=== PATIENT | male | born 1945 | race Caucasian/White ===

== ENCOUNTER 2021-01-15 08:11 | Outpatient (REF) | payer MEDICARE, SELFPAY ==
[2021-01-15 10:49] LABS: MANUAL DIFF FLAG NO
[2021-01-15 10:52] LABS: Basophils Percent Auto 0.4 % (0-2); Eosinophils Absolute Auto 0.1 X10*3/uL (0.0-0.4); Eosinophils Percent Auto 1.5 % (0-4); Hematocrit 45.9 % (42.0-52.0); Hemoglobin 15.4 g/dl (14.0-18.0); Imm Gran Abs Auto 0.01 X10*3/uL (0.00-0.03); Imm Gran Pct Auto 0.2 % (0.0-0.4); Lymphocytes Absolute Auto 1.2 X10*3/uL (1.2-4.9); Lymphocytes Percent Auto 22.7 % (20-40); Mean Corpuscular HGB Conc 33.6 g/dl (31.0-36.0); Mean Corpuscular Hemoglobin 29.2 pg (27.0-33.0); Mean Corpuscular Volume 87.1 fL (80.0-98.0); Mean Platelet Volume 9.7 fL (9.4-12.4); Monocytes Absolute Auto 0.5 X10*3/uL (0.1-1.2); Monocytes Percent Auto 9.6 % (2-11); Neutrophils Absolute Auto 3.6 x10*3/uL (2.0-8.3); Neutrophils Percent Auto 65.6 % (45-73); Platelet Count 227 X10*3/uL (160-400); Red Blood Count 5.27 X10*6/uL (4.60-5.80); Red Cell Distribution Width 13.1 % (11.0-16.0); White Blood Count 5.4 X10*3/uL (4.8-10.8)
[2021-01-15 11:01] LABS: Estimated Average Glucose 114 mg/dL; Hemoglobin A1c % 5.6 %
[2021-01-15 11:29] LABS: Alanine Aminotransferase 17 U/L (0-40); Albumin Level 4.1 g/dL (3.5-5.0); Alkaline Phosphatase 97 U/L (39-117); Anion Gap 11 (12-20); Aspartate Amino Transferase 20 U/L (5-37); Bilirubin Total 0.5 mg/dL (0.0-1.0); Blood Urea Nitrogen 17 mg/dL (9-16); Calcium 9.3 mg/dL (8.4-10.2); Carbon Dioxide 31 mmol/L (22-29); Chloride 103 mmol/L (96-108); Cholesterol 206 mg/dL; Estimated Glomerular Filt Rate > 60; Glucose Fasting 110 mg/dL (60-99); HDL Cholesterol 40 mg/dL; LDL Cholesterol Calculated 129 mg/dl; Potassium 4.2 mmol/L (3.3-5.1); Sodium 141 mmol/L (135-145); Total Protein 6.9 g/dL (6.5-8.0); Triglycerides 186 mg/dL
[2021-01-15 11:50] LABS: Prostate Specific Antigen 1.52 ng/mL (<0.05-4.0)
[2021-01-15 11:52] LABS: Vitamin B12 181 pg/mL (200-900)
== END 2021-01-15 08:12 | disposition home or self-care (01) ==
LOC: HO.MANLDS 08:11
PROVIDERS: PCP Internal Medicine; Visit Provider Internal Medicine
DX: Z00.00 Encounter for general adult medical examination without abnormal findings (principal); Z12.5 Encounter for screening for malignant neoplasm of prostate; R73.01 Impaired fasting glucose
CPT/HCPCS: 36415; 80053; 80061; 82306; 82607; 83036; 84153; 85025

== ENCOUNTER 2021-04-22 09:24 | Inpatient (IN) | payer MEDICARE, SELFPAY ==
--- NOTE | 2021-04-22 | ECG_ITS ---
Test Reason : SHORTNESS OF BREATH Blood Pressure : / mmHG Vent. Rate : 053 BPM Atrial Rate : 053 BPM P-R Int : 168 ms QRS Dur : 104 ms QT Int : 450 ms P-R-T Axes : 079 -42 055 degrees QTc Int : 422 ms Sinus bradycardia with Premature atrial complexes in a pattern of bigeminy Left axis deviation Moderate voltage criteria for LVH, may be normal variant ( R in aVL , [place] product ) Abnormal ECG When compared with ECG of 22-APR-2021 09:31, Sinus rhythm has replaced Atrial fibrillation Vent. rate has decreased BY 35 BPM Nonspecific T wave abnormality has replaced inverted T waves in Lateral leads Referred By: Yohan Eddy Electronically Signed By:REBEKAH ALVAREZ MD
--- NOTE | ~2021-04-22 | XR_ITS ---
EXAMINATION: XR CHEST CLINICAL INFORMATION: Cough and shortness of breath COMPARISON: None TECHNIQUE: 2 views of the chest were obtained. FINDINGS: The cardiac silhouette is within normal limits for technique. No vascular congestion or pulmonary edema. The lungs are mildly hypoexpanded. No consolidation or effusion. No pneumothorax. Degenerative changes in the thoracic spine. XR/XR chest 2V IMPRESSION: No focal consolidation.
--- NOTE | ~2021-04-22 | NM_ITS ---
Myocardial perfusion study Indication: Exertional shortness of breath with elevated troponin and aorta with atrial fibrillation Technique: The patient was brought in for a Lexiscan perfusion study on 04/24/2021. Patient performed low-level exercise and was injected 0.4 mg of Lexiscan intravenously. Within a minute of injection, 31 mCi of sestamibi was given intravenously. Images were obtained using the SPECT gamma camera interlaced with the gating device. Images were obtained in supine position. Resting perfusion study was performed on 04/23/2021. Patient was administered 35 mCi of sestamibi intravenously at rest. Images were then obtained in supine position. Images were obtained with and without CT attenuation. Total DLP 95 mGy-cm. Images were processed with the software and compared side to side in short axis, horizontal long axis and vertical long axis views. Findings: The stress perfusion study showed non attenuated images show moderately reduced uptake in the inferior wall in the apex of the LV myocardium. Moderately reduced uptake in the inferoseptum the LV myocardium. Remainder of the LV myocardium is normally perfused. Attenuation corrected images show normalized inferior wall with mildly reduced uptake in the apex of the LV myocardium. The gated study shows mildly reduced LV systolic function with calculated LVEF of 49%. LV cavity is mildly to moderately dilated size. The gated study shows reduced wall thickening and contraction of inferior segments. Resting study shows showed no changes in perfusion pattern compared to stress perfusion study. Gating at rest reveals inferior wall motion abnormality with ejection fraction at 50%. The findings are consistent with fixed inferior wall defect on non attenuated images may suggest ischemia versus prior nontransmural myocardial infarction with no wall motion segments with no clear ischemia seen.. NM/NM topher perf SPECT rest & str Impression: 1. Myocardial perfusion imaging study shows fixed inferior wall defect which may suggest nontransmural infarct. Severe ischemia cannot be entirely ruled out 2. Gated LVEF is 49% 3. Transient ischemic dilatation present EKG is nondiagnostic for ischemia
--- NOTE | 2021-04-22 09:31 | ECG_ITS ---
Test Reason : dyspnea Blood Pressure : / mmHG Vent. Rate : 088 BPM Atrial Rate : 000 BPM P-R Int : 000 ms QRS Dur : 110 ms QT Int : 382 ms P-R-T Axes : 000 -44 089 degrees QTc Int : 462 ms Atrial fibrillation with a competing junctional pacemaker Left axis deviation Moderate voltage criteria for LVH, may be normal variant ( R in aVL , [place] product ) Abnormal ECG When compared with ECG of 28-DEC-2007 11:09, Atrial fibrillation has replaced Sinus rhythm Vent. rate has increased BY 33 BPM QT has lengthened Referred By: Generic ED Physician Electronically Signed By:REBEKAH ALVAREZ MD
[2021-04-22 09:35] VITALS: BP 170/84; PULSE 88; RESP 19; TEMP 36.6; O2SAT 97; BMI 34.4
[2021-04-22 09:54] LABS: MANUAL DIFF FLAG NO
[2021-04-22 10:07] LABS: Anion Gap 12 (12-20); Blood Urea Nitrogen 19 mg/dL (9-16); Calcium 9.4 mg/dL (8.4-10.2); Carbon Dioxide 30 mmol/L (22-29); Chloride 105 mmol/L (96-108); Creatinine Clr Calc Pharmacy 62.8; Estimated Glomerular Filt Rate > 60; Glucose Random 158 mg/dL (60-115); Potassium 4.5 mmol/L (3.3-5.1); Sodium 142 mmol/L (135-145)
[2021-04-22 10:09] LABS: Basophils Percent Auto 0.3 % (0-2); Eosinophils Absolute Auto 0.1 X10*3/uL (0.0-0.4); Eosinophils Percent Auto 0.8 % (0-4); Hematocrit 43.5 % (42.0-52.0); Hemoglobin 14.5 g/dl (14.0-18.0); Imm Gran Abs Auto 0.02 X10*3/uL (0.00-0.03); Imm Gran Pct Auto 0.3 % (0.0-0.4); Lymphocytes Absolute Auto 1.3 X10*3/uL (1.2-4.9); Mean Corpuscular HGB Conc 33.3 g/dl (31.0-36.0); Mean Corpuscular Hemoglobin 28.5 pg (27.0-33.0); Mean Corpuscular Volume 85.6 fL (80.0-98.0); Mean Platelet Volume 9.4 fL (9.4-12.4); Monocytes Absolute Auto 0.6 X10*3/uL (0.1-1.2); Monocytes Percent Auto 8.1 % (2-11); Neutrophils Absolute Auto 5.5 x10*3/uL (2.0-8.3); Neutrophils Percent Auto 73.5 % (45-73); Platelet Count 215 X10*3/uL (160-400); Red Blood Count 5.08 X10*6/uL (4.60-5.80); Red Cell Distribution Width 13.2 % (11.0-16.0); White Blood Count 7.4 X10*3/uL (4.8-10.8)
[2021-04-22 10:14] LABS: B Type Natriuretic Peptide 351 pg/mL (<100)
[2021-04-22 11:55] VITALS: BP 156/85; PULSE 82; RESP 18; O2SAT 96
--- NOTE | 2021-04-22 12:13 | PC.NURSE ---
pt alert and oriented, vss. pt reports increased sob and generalized weakness starting this morning. he states that he walks 4 miles daily without any problems but was unable to do so this morning. he denies chest pain, no headache/dizziness. no n/v/d. pt's son is with him, will continue to monitor.
--- NOTE | 2021-04-22 12:53 | ED_ITS ---
HPI - General Adult General Chief complaint: Upper Respiratory Symptoms Stated complaint: SOB/chest pains/weakness Time Seen by Provider: 04/22/21 12:09 Source: patient Mode of arrival: ambulatory Limitations: no limitations History of Present Illness HPI narrative: 75-year-old male perfectly healthy presents to ED for shortness of breath on exertion that began this morning. Patient usually walks 4 miles a day daily but today while walking had shortness of breath. patient denies any chest pain, neck swelling, calf pain, or coughing up blood. Patient states family history of siblings with atrial fibrillation, heart attack, heart failure but as for himself he never been diagnosed any of those things. Denies any COVID like symptoms Related Data Home Medications Medication Instructions Recorded Confirmed aspirin 81 mg tablet,delayed 81 mg PO DAILY 04/22/21 04/22/21 release bisoprolol 10 1 tab PO DAILY 04/22/21 04/22/21 mg-hydrochlorothiazide 6.25 mg tablet magnesium oxide 400 mg PO DAILY 04/22/21 04/22/21 quinapril 40 mg tablet 1 tab PO DAILY 04/22/21 04/22/21 Allergies Allergy/AdvReac Type Severity Reaction Status Date / Time No Known Allergies Allergy Mild N/A Unverified 11/03/19 14:54 Review of Systems Review of Systems: shortness of breath on exertion Yes all other systems are reviewed and are negative [facility] Past Medical History Medical History (Updated 04/22/21 @ 16:08 by AMANDA Lord) CTS (carpal tunnel syndrome) HTN (hypertension) Vertigo Surgical History (Updated 04/22/21 @ 15:37 by Yohan Eddy MD) H/O umbilical hernia repair Hx of cholecystectomy Family History Family History (Updated 04/22/21 @ 15:36 by Yohan Eddy MD) Brother CAD (coronary artery disease) Social History Social History (Updated 04/22/21 @ 15:37 by Yohan Eddy MD) Alcohol intake: never Patient Tobacco Use Status: Former Tobacco user Quit Date: quit 50+ years ago Use of substances other than those prescribed or required for medical reasons: No Advance Directives: No Advance Directives Information Provided: No Physical Exam ED Vital Signs: Vital Signs - 24 hr 04/22/21 09:35 04/22/21 11:55 Temperature 98 F Pulse Rate 88 82 Respiratory Rate 19 18 Blood Pressure 170/84 H 156/85 H Pulse Oximetry 97 96 BMI result Body Mass Index 34.4 Const General: cooperative, healthy appearing, comfortable, no acute distress, well developed, alert, awake and Physically active Orientation/consciousness: oriented to person, oriented to place, oriented to time and patient oriented x3 [facility] Head: Yes normal to inspection, Yes No palpable skull fracture present, Yes normocephalic, Yes atraumatic and No abrasion Eyes General: appearance normal, both eyes and all related structures Neck Neck: Yes normal visual inspection, Yes full ROM, Yes no lymphadenopathy, Yes no meningeal signs, Yes trachea midline, Yes supple, No anterior neck swelling and No tender Chest Chest palpation & inspection: normal inspection of the chest and normal palpation of entire chest wall Resp Effort & Inspection: normal respiratory effort and able to speak in complete sentences Cardio Jugular venous distension: no JVD Heart sounds: Abnormal heart opening sounds ( irregular heartbeat on a uscultation) GI Inspection: Yes normal to inspection and No abdominal wall ecchymosis Palpation (GI): Soft to palpation, not firm, nontender, no guarding and not rigid General: No CVA tenderness and Yes no CVA tenderness Back/Spine/Pelvis Back: no CVA tenderness, No CVA tenderness and No back tenderness Skin General skin exam: no rashes or lesions noted and elasticity normal Neuro General: oriented to person, oriented to place, oriented to time, patient oriented x3, gait normal, tone normal, no meningeal signs and CN's II-XI intact bilaterally Cranial nerves: Yes CN's II-XII intact bilaterally Extrem Other: lower extremities negative for swelling, pitting edema, or calf tenderness General: Yes normal to inspection and Yes full ROM Psych Appearance: grossly normal, well kempt and not disheveled Course Course Course Narrative: EKG and mint and cardiac evaluation done. Reevaluation(s) Reevaluation #1: EKG shows new atrial fibrillation that is rate controlled. First troponin positive with BNP 351. COVID test negative. Patient is not in any respiratory distress. Vital signs stable. RADHA score 2. case discussed with hospitalist for admission. patient to be admitted for CHF and new onset atrial fibrillation. patient will get further workup in admission. Time: 13:15 Medical Decision Making [facility] Narrative Medical decision making narrative: atrial fibrillation Lab Data Result diagrams: 04/22/21 09:49 04/22/21 09:49 Labs: Lab Results 04/22/21 04/22/21 04/22/21 Range/Units 09:49 09:49 09:49 WBC 7.4 (4.8-10.8) X10*3/uL RBC 5.08 (4.60-5.80) X10*6/uL Hgb 14.5 (14.0-18.0) g/dl Hct 43.5 (42.0-52.0) % MCV 85.6 (80.0-98.0) fL MCH 28.5 (27.0-33.0) pg MCHC 33.3 (31.0-36.0) g/dl RDW 13.2 (11.0-16.0) % Plt Count 215 (160-400) X10*3/uL MPV 9.4 (9.4-12.4) fL Immature Gran % (Auto) 0.3 (0.0-0.4) % Neut % (Auto) 73.5 H (45-73) % Lymph % (Auto) 17.0 L (20-40) % [place] % (Auto) 8.1 (2-11) % Eos % (Auto) 0.8 (0-4) % Baso % (Auto) 0.3 (0-2) % Lymph # (Auto) 1.3 (1.2-4.9) X10*3/uL [place] # (Auto) 0.6 (0.1-1.2) X10*3/uL Eos # (Auto) 0.1 (0.0-0.4) X10*3/uL Baso # (Auto) 0.0 (0.0-0.2) X10*3/uL Abs Immat Gran (auto) 0.02 (0.00-0.03) X10*3/uL Absolute Neuts (auto) 5.5 (2.0-8.3) x10*3/uL Absolute Nucleated RBC 0.000 (0.0-0.012) X10*3/uL Nucleated RBC % (auto) 0.0 (0.0-0.2) /100WBC Sodium 142 (135-145) mmol/L Potassium 4.5 (3.3-5.1) mmol/L Chloride 105 (96-108) mmol/L Carbon Dioxide 30 H (22-29) mmol/L Anion Gap 12 (12-20) BUN 19 H (9-16) mg/dL Creatinine 1.09 (0.5-1.4) mg/dL Estim Creat Clear Calc 62.8 Estimated GFR > 60 Random Glucose 158 H (60-115) mg/dL Calcium 9.4 (8.4-10.2) mg/dL Troponin I High Sens (<3.5-35.0) ng/L B-Natriuretic Peptide 351 H (<100) pg/mL COVID-19 (REUBEN) (Negative) COVID-19 Clin Com 04/22/21 04/22/21 04/22/21 Range/Units 09:49 12:44 13:40 WBC (4.8-10.8) X10*3/uL RBC (4.60-5.80) X10*6/uL Hgb (14.0-18.0) g/dl Hct (42.0-52.0) % MCV (80.0-98.0) fL MCH (27.0-33.0) pg MCHC (31.0-36.0) g/dl RDW (11.0-16.0) % Plt Count (160-400) X10*3/uL MPV (9.4-12.4) fL Immature Gran % (Auto) (0.0-0.4) % Neut % (Auto) (45-73) % Lymph % (Auto) (20-40) % [place] % (Auto) (2-11) % Eos % (Auto) (0-4) % Baso % (Auto) (0-2) % Lymph # (Auto) (1.2-4.9) X10*3/uL [place] # (Auto) (0.1-1.2) X10*3/uL Eos # (Auto) (0.0-0.4) X10*3/uL Baso # (Auto) (0.0-0.2) X10*3/uL Abs Immat Gran (auto) (0.00-0.03) X10*3/uL Absolute Neuts (auto) (2.0-8.3) x10*3/uL Absolute Nucleated RBC (0.0-0.012) X10*3/uL Nucleated RBC % (auto) (0.0-0.2) /100WBC Sodium (135-145) mmol/L Potassium (3.3-5.1) mmol/L Chloride (96-108) mmol/L Carbon Dioxide (22-29) mmol/L Anion Gap (12-20) BUN (9-16) mg/dL Creatinine (0.5-1.4) mg/dL Estim Creat Clear Calc Estimated GFR Random Glucose (60-115) mg/dL Calcium (8.4-10.2) mg/dL Troponin I High Sens 36.0 H 62.9 H D (<3.5-35.0) ng/L B-Natriuretic Peptide (<100) pg/mL COVID-19 (REUBEN) Negative (Negative) COVID-19 Clin Com See Note ECG Data Interpretation: atrial fibrillation with competing junctional pacemaker. reticular 88. QRS 110. QTC 462. Negative STEMI Discharge Plan Discharge Clinical Impression: Atrial fibrillation Patient Disposition: Admitted As Inpatient
[2021-04-22 13:07] LABS: COVID-19 Test Negative (Negative); IDNOW Serial# 55D5AD1C
[2021-04-22 14:05] LABS: Troponin-I High Sensitivity 62.9 ng/L (<3.5-35.0)
[2021-04-22 15:11] VITALS: BP 144/84; PULSE 70; RESP 13; O2SAT 96
--- NOTE | 2021-04-22 15:15 | P.HPHOSP_ITS ---
History of Present Illness Date of Service: 04/22/21 Chief Complaint: difficult breathing This is a 75 year old M with a PMH of HTN who [place] [facility] after acute onset of shortness of breath during his morning, 4-mile walk. The patient is accompanied by is his grandson who is a office technology professor. He reports that he was feeling in his usual state of health this morning. He walks about 4 miles daily and generally does not have any cardiac or pulmonary symptoms. He reports that about half way through his walk, he began feeling short of breath, of sudden onset-- he describes it has unable to take a deep breath. Immediately after this, he felt extreme dizziness, but denies any LOC or fall. He denies any cardiac type pain before, during and after this event. He reports that his dizziness last about 3 minutes and when this subsided he walked home. His grandson reports diaphoresis during this time. He reports extreme fatigue by the time he reached home. He reports that once home, he slept for about 1 hour and a fter this his symptoms subsided. He spoke with his grandson with the plans to see his PCP, but however, at the urging of his grandson, he came to the ED. In the ED, the patients EKG showed A. Fib with a competing junctional pacemaker. His HS trop-I were elevated, first 36 followed by 63. His BNP was 351. He will be given asa 325 x 1, started on lovenox 1mg kg/bid and will be admitted for suspected ACS. COVID Vaccination status: Pfizer 2 dose series + booster Review of Systems Review of Systems: negative except [facility] Medical History (Updated 04/22/21 @ 15:43 by Yohan Eddy MD) CTS (carpal tunnel syndrome) HTN (hypertension) Vertigo Family History (Updated 04/22/21 @ 15:36 by Yohan Eddy MD) Brother CAD (coronary artery disease) Surgical History (Updated 04/22/21 @ 15:37 by Yohan Eddy MD) H/O umbilical hernia repair Hx of cholecystectomy Social History (Updated 04/22/21 @ 15:37 by Yohan Eddy MD) Alcohol intake: never Patient Tobacco Use Status: Former Tobacco user Quit Date: quit 50+ years ago Use of substances other than those prescribed or required for medical reasons: No Advance Directives: No Advance Directives Information Provided: No Meds Allergies Allergy/AdvReac Type Severity Reaction Status Date / Time No Known Allergies Allergy Mild N/A Unverified 11/03/19 14:54 Active Medications: Current Medications Aspirin (Aspirin 81 Mg Tab.Chew) 324 mg PO ONCE ONE Stop: 04/22/21 15:12 Enoxaparin Sodium (Enoxaparin Sodium 100 Mg/Ml Syringe) 95 mg 1 mg/kg (95 mg) SUBCUT Q12H [facility] Home Medications Medication Instructions Recorded Confirmed Last Taken Type aspirin 81 mg tablet,delayed 81 mg PO DAILY 04/22/21 04/22/21 04/22/21 History release bisoprolol 10 1 tab PO DAILY 04/22/21 04/22/21 04/22/21 History mg-hydrochlorothiazide 6.25 mg tablet magnesium oxide 400 mg PO DAILY 04/22/21 04/22/21 04/22/21 History quinapril 40 mg tablet 1 tab PO DAILY 04/22/21 04/22/21 04/22/21 History Physical Exam Vital Signs and Narrative: Vital Signs: Last Vital Signs Temp 98 F 04/22/21 09:35 Pulse 82 04/22/21 11:55 Resp 18 04/22/21 11:55 BP 156/85 H 04/22/21 11:55 Pulse Ox 96 04/22/21 11:55 BMI result Body Mass Index 34.4 Const: Other: Constitutional - Awake and Alert, No apparent distress Eyes - PERRLA, EOMI Cardiovascular - S1S2, RRR, No edema Respiratory - Normal lung expansion, Normal respiratory effort, No respiratory distress, CTA bilaterally Gastrointestinal - NT / ND; +BS; No rebound or guarding - No CVA tenderness Extremities - no calf tenderness bilaterally, no swelling Musculoskeletal - Normal inspection, normal ROM Skin - Warm/Dry Neurological - Alert & oriented x3, No focal deficit Psychological - Appropriate affect Results Labs CBC and Chem 7: 04/22/21 09:49 04/22/21 09:49 Labs: Laboratory Results - last 24 hr 04/22/21 04/22/21 04/22/21 09:49 09:49 09:49 MCV 85.6 MCH 28.5 MCHC 33.3 RDW 13.2 Plt Count 215 MPV 9.4 Immature Gran % (Auto) 0.3 Neut % (Auto) 73.5 H Lymph % (Auto) 17.0 L [place] % (Auto) 8.1 Eos % (Auto) 0.8 Baso % (Auto) 0.3 Lymph # (Auto) 1.3 [place] # (Auto) 0.6 Eos # (Auto) 0.1 Baso # (Auto) 0.0 Abs Immat Gran (auto) 0.02 Absolute Neuts (auto) 5.5 Absolute Nucleated RBC 0.000 Nucleated RBC % (auto) 0.0 Anion Gap 12 Estim Creat Clear Calc 62.8 Estimated GFR > 60 Random Glucose 158 H Calcium 9.4 B-Natriuretic Peptide 351 H COVID-19 (REUBEN) COVID-19 Clin Com 04/22/21 12:44 MCV MCH MCHC RDW Plt Count MPV Immature Gran % (Auto) Neut % (Auto) Lymph % (Auto) [place] % (Auto) Eos % (Auto) Baso % (Auto) Lymph # (Auto) [place] # (Auto) Eos # (Auto) Baso # (Auto) Abs Immat Gran (auto) Absolute Neuts (auto) Absolute Nucleated RBC Nucleated RBC % (auto) Anion Gap Estim Creat Clear Calc Estimated GFR Random Glucose Calcium B-Natriuretic Peptide COVID-19 (REUBEN) Negative COVID-19 Clin Com See Note Imaging Radiologist's Impressions: Impressions Chest X-Ray 04/22/21 09:56 IMPRESSION: No focal consolidation. Assessment and Plan (1) Acute coronary syndrome: Status: Acute Plan This is a 75 year old male with no known prior CAD who presents to the hospital with sudden onset shortness of breath and dizziness. His presenting symptoms, his baseline risk factors and his ED work up are worrisome for acute coronary syndrome. He will be admitted for further treatment and work up. 1. Suspected Acute Coronary Syndrome Personal Risk factors include age, sex and hypertension; Has a family history of CAD in his brother in his 50s Asa 325mg x 1 now Lovenox 1mg/kg BID, statin, check lidid panel tomorrow AM 2d Echo Cardiology consult Repeat EKG now and in future with chest pain HS Trop-I -- 36 follwed by 62.9; repeat another HS trop I this evening 2. New onset A. Fib Rate controlled CHADSVasc score of at least 3, possibly higher -- will need OAC eventually monitor on tele 3. Elevated BNP clinically no evidence of CHF -- will await 2d echo 4. HTN med rec pending, will resume home meds once done Full Code DVT pptx, Lucio Endorses his his HCP Quality Stroke Does the patient have a stroke diagnosis?: No VTE Prior VTE?: No VTE Risk Level:: Medical - moderate - high VTE Device Contraindication: Treatment Not Indicated VTE Drug Contraindication: N/A - Med Ordered
--- NOTE | 2021-04-22 15:25 | PHA.MEDREC ---
Pharmacy Consult ? Medication Reconciliation Pharmacy has completed the medication reconciliation. spoke with patient in ED.
[2021-04-22] MEDS: Enoxaparin Sodium 100 MG/ML SYRINGE 95 MG SUBCUT (16:03)
[2021-04-22] MEDS: Aspirin 81 MG TAB.CHEW 324 MG PO (16:03)
[2021-04-22] MEDS: 0.9 % Sodium Chloride Flush 3 ML SYRINGE IVFLUSH (16:09)
--- NOTE | 2021-04-22 17:18 | ECG_ITS ---
Test Reason : REPEAT EKG Blood Pressure : / mmHG Vent. Rate : 053 BPM Atrial Rate : 053 BPM P-R Int : 178 ms QRS Dur : 106 ms QT Int : 452 ms P-R-T Axes : 059 -41 064 degrees QTc Int : 424 ms Sinus bradycardia with Premature atrial complexes in a pattern of bigeminy Left axis deviation Moderate voltage criteria for LVH, may be normal variant ( R in aVL , [place] product ) Abnormal ECG When compared with ECG of 22-APR-2021 16:58, No significant change was found Referred By: Carlo Gomez Electronically Signed By:REBEKAH ALVAREZ MD
--- NOTE | 2021-04-22 18:40 | PM.EVENT ---
Event Note Date of Service: 04/22/21 Event Note: Patient converted to normal sinus rhythm EKG obtained that showed premature atrial contraction her a pattern of bigeminy Patient awake alert denies chest pain, no lightheadedness no dizziness, no shortness of breath Continue current treatment
--- NOTE | 2021-04-22 19:00 | PC.NURSE ---
assumed care of pt. pt resting in stretcher on monitor in nad. pt awaiting for room assignment. pt denies complaints. respirations easy, n/l. skin w/d. Awaiting for further orders.
[2021-04-22 19:36] LABS: Troponin-I High Sensitivity 72.5 ng/L (<3.5-35.0)
--- NOTE | 2021-04-22 21:08 | PC.NURSE ---
At ~1999, this RN to bedside to medicate with pt's lipitor per FELIZ. Brittni, primary RN at bedside. Pt refusing med, states he has not taken any meds for cholesterol in years, because my cholesterol is fine, and pt reports when he used to take lipitor, he had adverse rxn of muscle cramps. Dr Briggs made aware, states pt was started on lipitor d/t admission dx of ACS and associated risk factors. Brittni primary RN made aware. Dr Briggs states she will order a different med to tx same concerns d/t pt's refusal of lipitor 2/2 hx of muscle cramps. Awaiting orders.
--- NOTE | 2021-04-22 21:37 | PC.NURSE ---
pt up to restroom w/o difficulty and returns to room without complaints. pt remains on monitor. respirations easy, n/l. skin w/d. Pt's lipitor being chg d/t spasms according to pt. Hospitalist aware. Pt denies complaints and awaiting for further orders and room assignment.
[2021-04-23] VITALS (10 sets, daily range): BP systolic 141–177; BP diastolic 62–80; PULSE 50–59; RESP 12–18; TEMP 36.2–36.8; O2SAT 94–99
--- NOTE | 2021-04-23 00:30 | PC.NURSE ---
pt up to restroom w/o difficulty. pt returns to room in NAD. pt on monitor with hr 90
--- NOTE | 2021-04-23 06:05 | PC.NURSE ---
pt denies any complaints, respirations easy, n/l. skin w/d. will continue to monitor pt
[2021-04-23] MEDS: Enoxaparin Sodium 100 MG/ML SYRINGE 95 MG SUBCUT ×2 (06:15→15:22)
--- NOTE | 2021-04-23 06:22 | PC.NURSE ---
pt denies complaints at this time. respirations easy, n/l. skin w/d. pt awaiting further orders.
[2021-04-23 07:11] LABS: Hematocrit 42.9 % (42.0-52.0); Hemoglobin 14.3 g/dl (14.0-18.0); Mean Corpuscular HGB Conc 33.3 g/dl (31.0-36.0); Mean Corpuscular Hemoglobin 28.7 pg (27.0-33.0); Mean Platelet Volume 9.3 fL (9.4-12.4); Platelet Count 198 X10*3/uL (160-400); Red Blood Count 4.99 X10*6/uL (4.60-5.80); Red Cell Distribution Width 13.2 % (11.0-16.0); White Blood Count 6.1 X10*3/uL (4.8-10.8)
[2021-04-23 07:27] LABS: Anion Gap 11 (12-20); Blood Urea Nitrogen 17 mg/dL (9-16); Calcium 9.4 mg/dL (8.4-10.2); Carbon Dioxide 29 mmol/L (22-29); Chloride 106 mmol/L (96-108); Cholesterol 177 mg/dL; Creatinine Clr Calc Pharmacy 67.8; Estimated Glomerular Filt Rate > 60; Glucose Random 102 mg/dL (60-115); HDL Cholesterol 32 mg/dL; LDL Cholesterol Calculated 119 mg/dl; Potassium 4.5 mmol/L (3.3-5.1); Sodium 141 mmol/L (135-145); Triglycerides 131 mg/dL
[2021-04-23] MEDS: 0.9 % Sodium Chloride Flush 3 ML SYRINGE IVFLUSH ×2 (07:53→15:24)
--- NOTE | 2021-04-23 08:25 | HO.PM.IMPN ---
Subjective Subjective Date of Service: 04/23/21 Interval History: LATE ENTRY FOR 04/23/21 Pt seen and examined this AM denies cp or sob or dizziness awaiting work up for suspected ACS Review of Systems negative except HPI Physical Exam Vital Signs: Vital Signs: Last Vital Signs Temp 98.6 F 04/24/21 06:27 Pulse 50 04/24/21 06:27 Resp 13 04/24/21 06:27 BP 152/62 H 04/24/21 06:27 Pulse Ox 96 04/24/21 06:27 BMI result Body Mass Index 34.4 Const: Other: General - no acute distress, appears comfortable Cardiovascular - regular rate and rhythm, S1-S2 Lungs - normal respiratory effort, clear to auscultation bilaterally, no wheezing Abdomen - soft, nontender, no rebound or guarding Extremities - no edema bilaterally Neuro - awake and alert, no focal deficits Objective Data Active Medications Acetaminophen (Acetaminophen 325 Mg Tablet) 650 mg PO Q6H PRN PRN Reason: Pain, Mild (Pain Scale 1-3) Amlodipine Besylate (Amlodipine Besylate 5 Mg Tablet) 5 mg PO DAILY [facility]; Protocol Last Admin: 04/23/21 10:51 Dose: 5 mg Documented by: ILYA Comments: See note regarding medication Aspirin (Aspirin Enteric Coated 81 Mg Tablet.) 81 mg PO DAILY [facility] Last Admin: 04/23/21 08:51 Dose: 81 mg Documented by: ILYA Atorvastatin Calcium (Atorvastatin Calcium 40 Mg Tablet) 40 mg PO BEDTIME [facility] Last Admin: 04/23/21 20:49 Dose: 40 mg Documented by: ALESHIA Bisoprolol Fumarate (Bisoprolol Fumarate 5 Mg Tablet) 10 mg PO DAILY [facility] Last Admin: 04/23/21 09:01 Dose: 10 mg Documented by: ILYA Enoxaparin Sodium (Enoxaparin Sodium 100 Mg/Ml Syringe) 95 mg 1 mg/kg (95 mg) SUBCUT Q12H [facility] Lisinopril (Lisinopril 40 Mg Tablet) 40 mg PO DAILY [facility] Last Admin: 04/23/21 08:51 Dose: 40 mg Documented by: ILYA Magnesium Oxide (Magnesium Oxide 400 Mg Tablet) 400 mg PO DAILY [facility] Last Admin: 04/23/21 08:51 Dose: 400 mg Documented by: HO.CIEBOM Morphine Sulfate (Morphine Sulfate 4 Mg/Ml Cartridge) 4 mg IVPUSH Q4H PRN; Protocol PRN Reason: Pain, Severe (Pain Scale 7-10) Ondansetron HCl (Ondansetron Hcl 4 Mg/2 Ml Vial) 4 mg IVPUSH Q8H PRN PRN Reason: Nausea and Vomiting Pharmacy Consult (Consult Rx Perform Med Rec) 1 each MISCELLANE ONCE PRN PRN Reason: Consult order Sodium Chloride (0.9 % Sodium Chloride Flush 3 Ml Syringe) 3 ml IVFLUSH QSHIFT [facility] Last Admin: 04/24/21 00:13 Dose: Not Given Documented by: ALESHIA Non-Admin Reason: Patient Asleep Labs CBC & Chem 7: 04/23/21 06:58 04/23/21 06:58 Assessment and Plan (1) Acute coronary syndrome: Status: Acute Plan This is a 75 year old male with no known prior CAD who presents to the hospital with sudden onset shortness of breath and dizziness. His presenting symptoms, his baseline risk factors and his ED work up are worrisome for acute coronary syndrome. He will be admitted for further treatment and work up. 1. Suspected Acute Coronary Syndrome Personal Risk factors include age, sex and hypertension; Has a family? history of CAD in his brother in his 50s Continue asa, statin, bb continue lovenox 1mg/kg bid Echo today -- if RWMA present, will need cath; otherwise needs inpatient stress test Cardiology input appreciated HS trop-I down trending 2. New onset PAF converted to sinus Lovenox 1mg/kg as above, eventual OAC (CHADSVASC at least 3) 3. Elevated BNP clinically no evidence of CHF -- will await 2d echo 4. HTN poorly controlled continue lisinopril, bisopropol; add norvasc 5mg Full Code DVT pptx, Lovenox Endorses his his HCP Quality Stroke Does the patient have a stroke diagnosis?: No VTE Prior VTE?: No VTE Risk Level:: Medical - moderate - high VTE Device Contraindication: Treatment Not Indicated VTE Drug Contraindication: N/A - Med Ordered
[2021-04-23] MEDS: Aspirin Enteric Coated 81 MG TABLET.DR PO (08:51)
[2021-04-23] MEDS: Magnesium Oxide 400 MG TABLET PO (08:51)
[2021-04-23] MEDS: lisinopriL 40 MG TABLET PO (08:51)
[2021-04-23] MEDS: Bisoprolol Fumarate 5 MG TABLET 10 MG PO (09:01)
--- NOTE | 2021-04-23 09:30 | CA_ITS ---
Transthoracic Echocardiogram Patient (Last, First, Middle): Filippo Nicole, Gender: Male Date of : 1945 Age: 75 Procedure Date: 04/23/2021 Procedure Type: Transthoracic Echocardiogram Location: ER Height: 167.64 cm Weight: 96.62 kg BSA: 2.05 m2 Heart Rate: bpm BP: 177 / 80 mmHg Manager E Commerce: VH/OT Referring MD: Yohan Eddy MD Net Software Architect: Julina Tong MD Symptoms: shortness of breath Study Quality: Fair ECG Rhythm: Sinus Conclusions: - 1. Normal LV systolic function with mild LVH with LVEF of 60 65% with pseudonormal filling pattern 2. Moderately dilated left atrium 3. Mild aortic regurgitation 4. Upper limits are normal RV systolic pressure 5. No gross pericardial effusion Findings Procedure Information Contrast agent, definity, is being given per protocol without apparent complications. Left Ventricle Normal left ventricular size and systolic function. There is mildly increased left ventricular wall thickness. The visually estimated ejection fraction is between 60-65%. There is no evidence of regional wall motion abnormalities. Spectral Doppler is indicative of a pseudonormal filling pattern. E/E prime ratio is between 8 and 15 consistent with indeterminate filling pressures. Right Ventricle Mildly increased right ventricular cavity size. There is normal right ventricular systolic function. Atria The left atrium is moderately dilated. There is no evidence of interatrial shunt. The right atrium is likely dilated. Aortic Valve Normal aortic valve structure and function. There is no aortic valve stenosis. There is mild aortic valve regurgitation. Mitral Valve There is mild anterior and posterior mitral leaflet thickening. There is trace mitral valve regurgitation. There is no mitral valve stenosis. Pulmonic Valve The pulmonic valve was not well visualized. Tricuspid Valve Likely normal tricuspid valve structure and function. There is mild tricuspid valve regurgitation. The right ventricular systolic pressure is normal. The right ventricular systolic pressure is 39 mmHg. Normal right atrial pressure. There is no evidence of pulmonary hypertension. Great Vessels All visible segments of the aorta are normal in size. The pulmonary artery was not well visualized. Venous The inferior vena cava is normal in size and collapses greater than 50% with inspiration. Pericardium/Pleural There is no evidence of pericardial effusion. Prior Study Comparison No prior study available for comparison. Measurements 2D Linear Measurements IVSd: 1.33 0.6-0.9/0.6-1.0 cm LVIDd: 5.10 3.9-5.3/4.2-5.9 cm LVIDd Index: 2.49 2.4-3.2/2.2-3.1 cm/m2 LVIDs: 3.69 2.0-3.6 cm LVPWd: 1.32 0.7-1.1 cm LA Diam: 5.10 2.7-3.8/3.0-4.0 cm LAIDs Index: 2.49 1.5-2.3 cm/m2 LV Mass: 346.15 67-162/88-224 g LV Mass Index: 168.85 43-95/49-115 g/m2 LVOT Diam: 2.10 3.0+(-)1.3 cm Mitral Valve MV Pk E: 0.90 MV PK A: 0.26 MV Decel Time: 189.00 E/A: 3.50 E'Lateral: 7.62 E'Medial: 2.61 E/E' Med: 34.30 E/E' Lat: 11.70 PHT: 55.00 MVA PHT: 4.00 Decel Catron: 4.73 Aortic Valve AoV Pk Marvin: 1.29 AoV Mn Marvin: 0.80 AoV VTI: 0.28 AoV Pk Grad: 7.00 Aov Mn Grad: 3.00 SAMANTHA Cont.VTI: 3.07 LVOT LVOT Pk Marvin: 1.14 LVOT Mn Marvin: 0.74 LVOT VTI: 0.24 LVOT Pk Grad: 5.00 LVOT Mn Grad: 3.00 LVOT Diam: 2.10 LVOT Area: 3.46 Diastolic Function MV Pk E: 0.90 MV Pk A: 0.26 E/A: 3.50 E'Medial: 2.61 E/E' Med: 34.30 E' Laterial: 7.62 E/E' Lat: 11.70 Right Ventricle TAPSE (mm): 23.00 Tricuspid Valve TR Pk Marvin: 2.99 TR Pk Grad: 36.00 RA Press: 3.00 RVSP: 39.00 Great Vessels Aorta Ao Asc: 3.60 2.1-3.4 cm Pulmonary Valve PV Pk Marvin: 1.05 Peak PV Grad: 4.00 Updated in Other Vendor System with Status of Final Julian Tong MD electronically signed on 04/23/2021 4:29:21 PM with status of Final
--- NOTE | 2021-04-23 09:35 | MHC.CM.PN ---
Patient lives in a house with his /HCP/Kriss and he is functionally independent, including walking 4 miles per day. Home no services is the goal for dc and CM has initiated and will follow for dc planning. IMM addressed and original will be mailed to Kriss and a copy will be placed on the chart for Patient's review at any time. Patient has received [facility] Covid vax X3 and PCP is DR. Faraz Angeles.
--- NOTE | 2021-04-23 10:20 | CA_ITS ---
Acquisition Time: 2021-04-24 09:24:56 Total Exercise Time: 00:02:00 Test Indications: Abnormal ECG AFIB ELEVATED TROP Medications: SEE EMAR Protocol: LEXISCAN Max HR: 071 BPM 49% of Pred: 144 BPM Max BP: 164/072 mmHG Max Work Load: 1.6 METS Pharmacological stress test with Lexiscan injection, while walking on treadmill, without anginal symptoms, with isolated PACs, with normotensive response to injection, with nondiagnostic EKG for ischemia. Nuclear images pending. Test reviewed with Dr Tong. Referred By: Julian Tong Overread By: YOVANY PALMA
--- NOTE | 2021-04-23 10:20 | PM.CNCAR ---
History of Present Illness History of Present Illness Date of Service: 04/23/21 Requesting physician: Yohan Eddy Consult reason: hypertension, atrial fibrillation and troponin elevation Chief complaint: Shortness of breath Narrative: I was requested to see Filippo in cardiology consultation today for new onset atrial fibrillation with symptoms of sudden shortness of breath with exertion. Elevated troponins were noted. Patient is in very good shape usually walks 4 miles every day. Was in his usual state of health yesterday went out for a walk and about midway walking suddenly developed cough and then had severe dizziness followed by some diaphoresis and then while walking he was noticing that he was struggling with shortness of breath. However he continued to finish his walk and went on with his walk and is last 150 yd he did know he would make it to home. He subsequently finish his walk reached home and rested for an hour. He then called his grandson with a relationship counselor and advised him to come to the emergency room. By that time was feeling well. He was not having any chest pressure. He denies any irregular or fast heart rate. No recent systemic symptoms. When he came to the Emergency was noted to have new onset atrial fibrillation with borderline rate control. His initial troponin was 36 subsequently 62.9 and than 72.5. No repeat troponins have been done since yesterday. He converted back to sinus rhythm overnight. Currently feels very well. His blood pressure was elevated yesterday and remains elevated last checked this morning. He takes medications at home for hypertension. Has no diabetes. Had borderline hyperlipidemia but not treated. No prior history of myocardial infarction or coronary artery disease or stroke or congestive heart failure. He is also noted to have elevated BNP yesterday. He has no recent signs of orthopnea, PND, leg edema. Says over the last year or so he has been noticing increasing shortness of breath especially going up a hill. No chest pressure. Strong family history for coronary artery disease brother who in his 50s. Review of Systems Constitutional: Constitutional: Reports no additional constitutional complaints Eyes: Eyes: Reports no additional eye complaints Cardiovascular: Cardiovascular: Denies chest pain, Reports lightheadedness, Denies Loss of Consciousness, Denies palpitations, Reports dyspnea on exertion and Denies orthopnea Respiratory: Respiratory: Reports no additional respiratory complaints and Reports dyspnea on exertion Gastrointestinal: Gastrointestinal: Reports no additional gastrointestinal complaints Genitourinary: Genitourinary: Reports no additional male genitourinary complaints Musculoskeletal: Musculoskeletal: Reports no additional musculoskeletal complaints Integumentary/Breasts: Skin/Breast: Reports system reviewed and no additional complaints, except as docu Neurologic: Reports system reviewed and no additional complaints, except as documented Psychiatric: Psychiatric: Reports no additional psychiatric complaints Endocrine: Endocrine: Reports no additional endocrine complaints and Denies palpitations Hematologic/Lymphatic: Hematologic/Lymphatic: Reports no additional hematologic/lymphatic complaints Allergic/Immunologic: Allergic/Immunologic: Reports no additional allergic/immunologic complaints [facility] Past Medical History Medical History CTS (carpal tunnel syndrome) HTN (hypertension) Vertigo Family History Family History Brother CAD (coronary artery disease) Surgical History Surgical History H/O umbilical hernia repair Hx of cholecystectomy Social History Social History Alcohol intake: never Patient Tobacco Use Status: Former Tobacco user Quit Date: quit 50+ years ago Use of substances other than those prescribed or required for medical reasons: No Advance Directives: No Advance Directives Information Provided: No service: Yes Current occupational status: retired [employer] Allergies Allergy/AdvReac Type Severity Reaction Status Date / Time No Known Allergies Allergy Mild N/A Unverified 11/03/19 14:54 Active Medications: Current Medications Acetaminophen (Acetaminophen 325 Mg Tablet) 650 mg PO Q6H PRN PRN Reason: Pain, Mild (Pain Scale 1-3) Aspirin (Aspirin Enteric Coated 81 Mg Tablet.) 81 mg PO DAILY [facility] Last Admin: 04/23/21 08:51 Dose: 81 mg Documented by: Atorvastatin Calcium (Atorvastatin Calcium 40 Mg Tablet) 40 mg PO BEDTIME [facility] Last Admin: 04/22/21 19:54 Dose: Not Given Documented by: Bisoprolol Fumarate (Bisoprolol Fumarate 5 Mg Tablet) 10 mg PO DAILY [facility] Last Admin: 04/23/21 09:01 Dose: 10 mg Documented by: Enoxaparin Sodium (Enoxaparin Sodium 100 Mg/Ml Syringe) 95 mg 1 mg/kg (95 mg) SUBCUT Q12H [facility] Last Admin: 04/23/21 06:15 Dose: 95 mg Documented by: Lisinopril (Lisinopril 40 Mg Tablet) 40 mg PO DAILY [facility] Last Admin: 04/23/21 08:51 Dose: 40 mg Documented by: Magnesium Oxide (Magnesium Oxide 400 Mg Tablet) 400 mg PO DAILY [facility] Last Admin: 04/23/21 08:51 Dose: 400 mg Documented by: Morphine Sulfate (Morphine Sulfate 4 Mg/Ml Cartridge) 4 mg IVPUSH Q4H PRN; Protocol PRN Reason: Pain, Severe (Pain Scale 7-10) Ondansetron HCl (Ondansetron Hcl 4 Mg/2 Ml Vial) 4 mg IVPUSH Q8H PRN PRN Reason: Nausea and Vomiting Pharmacy Consult (Consult Rx Perform Med Rec) 1 each MISCELLANE ONCE PRN PRN Reason: Consult order Sodium Chloride (0.9 % Sodium Chloride Flush 3 Ml Syringe) 3 ml IVFLUSH QSHIFT [facility] Last Admin: 04/23/21 07:53 Dose: 3 ml Documented by: Home Medications Medication Instructions Recorded Confirmed Last Taken Type aspirin 81 mg tablet,delayed 81 mg PO DAILY 04/22/21 04/22/21 04/22/21 History release bisoprolol 10 1 tab PO DAILY 04/22/21 04/22/21 04/22/21 History mg-hydrochlorothiazide 6.25 mg tablet magnesium oxide 400 mg PO DAILY 04/22/21 04/22/21 04/22/21 History quinapril 40 mg tablet 1 tab PO DAILY 04/22/21 04/22/21 04/22/21 History Physical Exam Vital Signs: Vital Signs: Last Vital Signs Temp 97.8 F 04/23/21 07:15 Pulse 59 04/23/21 08:55 Resp 18 04/23/21 08:55 BP 167/79 H 04/23/21 08:34 Pulse Ox 95 04/23/21 08:55 BMI result Body Mass Index 34.4 Const: General: cooperative, comfortable, no acute distress, well developed, alert and awake Nutritional Appearance: obese Orientation/consciousness: patient oriented x3 Limitations: no limitations HENMT: Head: Yes normocephalic and Yes atraumatic Neck: Neck: Yes trachea midline, Yes supple and Yes no JVD Chest: Chest palpation & inspection: normal inspection of the chest Resp: Effort & Inspection: normal respiratory effort Auscultation: clear to auscultation bilaterally Cardio: Jugular venous distension: no JVD Palpation: normal PMI Rate: regular rate Rhythm: regular rhythm Heart sounds: S1 normal heart sound present, S2 normal heart sound present, no click, no gallops, no murmurs and Other heart sounds present (S4 present) GI: Percussion: Yes normal to percussion Skin: General skin exam: no rashes or lesions noted Neuro: General: patient oriented x3 and no focal motor deficits Extrem: General: Yes no clubbing, cyanosis or edema Psych: Appearance: grossly normal Objective Labs and Meds Result diagrams: 04/23/21 06:58 04/23/21 06:58 Lab results: Laboratory Results - last 24 hr 04/22/21 04/22/21 04/22/21 09:49 12:44 13:40 WBC RBC Hgb Hct MCV MCH MCHC RDW Plt Count MPV Absolute Nucleated RBC Nucleated RBC % (auto) Sodium Potassium Chloride Carbon Dioxide Anion Gap BUN Creatinine Estim Creat Clear Calc Estimated GFR Random Glucose Calcium Troponin I High Sens 36.0 H 62.9 H D Triglycerides Cholesterol LDL Cholesterol, Calc HDL Cholesterol COVID-19 ([facility]) Negative COVID-19 Clin Com See Note 04/22/21 04/23/21 04/23/21 19:01 06:58 06:58 WBC 6.1 RBC 4.99 Hgb 14.3 Hct 42.9 MCV 86.0 MCH 28.7 MCHC 33.3 RDW 13.2 Plt Count 198 MPV 9.3 L Absolute Nucleated RBC 0.000 Nucleated RBC % (auto) 0.0 Sodium 141 Potassium 4.5 Chloride 106 Carbon Dioxide 29 Anion Gap 11 L BUN 17 H Creatinine 1.01 Estim Creat Clear Calc 67.8 Estimated GFR > 60 Random Glucose 102 D Calcium 9.4 Troponin I High Sens 72.5 H Triglycerides Cholesterol LDL Cholesterol, Calc HDL Cholesterol COVID-19 ([facility]) COVID-19 Clin Com 04/23/21 06:58 WBC RBC Hgb Hct MCV MCH MCHC RDW Plt Count MPV Absolute Nucleated RBC Nucleated RBC % (auto) Sodium Potassium Chloride Carbon Dioxide Anion Gap BUN Creatinine Estim Creat Clear Calc Estimated GFR Random Glucose Calcium Troponin I High Sens Triglycerides 131 Cholesterol 177 LDL Cholesterol, Calc 119 HDL Cholesterol 32 COVID-19 ([facility]) COVID-19 Clin Com Assessment and Plan (1) Acute coronary syndrome: Status: Acute Patient with sudden-onset symptoms exertional shortness of breath with multiple risk factors including age, hypertension and strong family history of ventricular artery disease with elevated troponins. However this could be also related to new onset atrial fibrillation. Clinically currently doing well. Needs further evaluation as inpatient for evaluation of significant underlying myocardial ischemia. Will suggest an echocardiogram initially to assess for regional wall motion abnormality and if present will need cardiac catheterization. If LV systolic function is normal require vasodilating myocardial perfusion imaging with resting perfusion study done today and stress perfusion study done tomorrow. Further treatment based on the findings. He is willing to remain inpatient for the same. Agree with statin therapy and aspirin therapy. Continue Lovenox till tomorrow morning. Aggressive control blood pressure is required. Continue bisoprolol, lisinopril. Add Norvasc 5 mg to his regimen. (2) Atrial fibrillation: Status: Acute New onset paroxysmal atrial fibrillation which may have been the only reason that he had presenting symptoms. Converted back to sinus rhythm. For now continue bisoprolol. If his cardiac workup is negative, will switch him to oral anticoagulation therapy starting tomorrow. CHADSVASc score of 3-4. Echocardiogram is requested. Given severity of his atrial fibrillation and hospitalization may need antiarrhythmic drug therapy in the future. Will follow-up as outpatient after Holter monitor. Thank you for allowing me to partake in his care. Procedures Date of Service Date of Service: 04/23/21
--- NOTE | 2021-04-23 10:47 | PC.NURSE ---
amlodipine ordered for patient. patient HR has been 50s. spoke with dr smith, states ok to given amlodipine, BP 152/74. patient states this hr is normal for him.
[2021-04-23] MEDS: amLODIPine Besylate 5 MG TABLET PO (10:51)
[2021-04-23 11:19] LABS: Troponin-I High Sensitivity 56.2 ng/L (<3.5-35.0)
[2021-04-23] MEDS: Atorvastatin Calcium 40 MG TABLET PO (20:49)
[2021-04-24 01:22] VITALS: BP 152/68; PULSE 48; RESP 18; O2SAT 95
[2021-04-24 06:27] VITALS: BP 152/62; PULSE 50; RESP 13; TEMP 37; O2SAT 96
[2021-04-24] MEDS: 0.9 % Sodium Chloride Flush 3 ML SYRINGE IVFLUSH (09:01)
[2021-04-24] MEDS: Enoxaparin Sodium 100 MG/ML SYRINGE 95 MG SUBCUT (09:02)
[2021-04-24] MEDS: Magnesium Oxide 400 MG TABLET PO (09:03)
[2021-04-24] MEDS: lisinopriL 40 MG TABLET PO (09:03)
[2021-04-24] MEDS: Aspirin Enteric Coated 81 MG TABLET.DR PO (09:03)
[2021-04-24] MEDS: Bisoprolol Fumarate 5 MG TABLET 10 MG PO (09:03)
[2021-04-24] MEDS: amLODIPine Besylate 5 MG TABLET PO (09:03)
--- NOTE | 2021-04-24 09:32 | HO.PM.IMPN ---
Subjective Subjective Date of Service: 04/24/21 Interval History: seen and examined this AM has no complaints feeling at baseline awaiting stress test Review of Systems negative except interval history Physical Exam Vital Signs: Vital Signs: Last Vital Signs Temp 98.6 F 04/24/21 06:27 Pulse 50 04/24/21 06:27 Resp 13 04/24/21 06:27 BP 152/62 H 04/24/21 06:27 Pulse Ox 96 04/24/21 06:27 BMI result Body Mass Index 34.4 Const: Other: General - no acute distress, appears comfortable Cardiovascular - regular rate and rhythm, S1-S2 Lungs - normal respiratory effort, clear to auscultation bilaterally, no wheezing Abdomen - soft, nontender, no rebound or guarding Extremities - no edema bilaterally Neuro - awake and alert, no focal deficits Objective Data Active Medications Acetaminophen (Acetaminophen 325 Mg Tablet) 650 mg PO Q6H PRN PRN Reason: Pain, Mild (Pain Scale 1-3) Amlodipine Besylate (Amlodipine Besylate 5 Mg Tablet) 5 mg PO DAILY [facility]; Protocol Last Admin: 04/24/21 09:03 Dose: 5 mg Documented by: FAISAL Aspirin (Aspirin Enteric Coated 81 Mg Tablet.) 81 mg PO DAILY [facility] Last Admin: 04/24/21 09:03 Dose: 81 mg Documented by: FAISAL Atorvastatin Calcium (Atorvastatin Calcium 40 Mg Tablet) 40 mg PO BEDTIME [facility] Last Admin: 04/23/21 20:49 Dose: 40 mg Documented by: ALESHIA Bisoprolol Fumarate (Bisoprolol Fumarate 5 Mg Tablet) 10 mg PO DAILY [facility] Last Admin: 04/24/21 09:03 Dose: 10 mg Documented by: FAISAL Enoxaparin Sodium (Enoxaparin Sodium 100 Mg/Ml Syringe) 95 mg 1 mg/kg (95 mg) SUBCUT Q12H [facility] Last Admin: 04/24/21 09:02 Dose: 95 mg Documented by: FAISAL Lisinopril (Lisinopril 40 Mg Tablet) 40 mg PO DAILY [facility] Last Admin: 04/24/21 09:03 Dose: 40 mg Documented by: FAISAL Magnesium Oxide (Magnesium Oxide 400 Mg Tablet) 400 mg PO DAILY [facility] Last Admin: 04/24/21 09:03 Dose: 400 mg Documented by: FAISAL Morphine Sulfate (Morphine Sulfate 4 Mg/Ml Cartridge) 4 mg IVPUSH Q4H PRN; Protocol PRN Reason: Pain, Severe (Pain Scale 7-10) Ondansetron HCl (Ondansetron Hcl 4 Mg/2 Ml Vial) 4 mg IVPUSH Q8H PRN PRN Reason: Nausea and Vomiting Pharmacy Consult (Consult Rx Perform Med Rec) 1 each MISCELLANE ONCE PRN PRN Reason: Consult order Sodium Chloride (0.9 % Sodium Chloride Flush 3 Ml Syringe) 3 ml IVFLUSH QSHIFT [facility] Last Admin: 04/24/21 09:01 Dose: 3 ml Documented by: FAISAL Labs CBC & Chem 7: 04/23/21 06:58 04/23/21 06:58 Assessment and Plan (1) Acute coronary syndrome: Status: Acute Plan This is a 75 year old male with no known prior CAD who presents to the hospital with sudden onset shortness of breath and dizziness. His presenting symptoms, his baseline risk factors and his ED work up are worrisome for acute coronary syndrome. He will be admitted for further treatment and work up. 1. Suspected Acute Coronary Syndrome Personal Risk factors include age, sex and hypertension; Has a family? history of CAD in his brother in his 50s Continue asa, statin, bb; last dose lovenox this AM stress test this AM Echo without any [facility] Cardiology input appreciated 2. HTN, poorly controlled continue lisinopril, norvasc, bisoprolol -- uptitrate as needed 3. New onset PAF converted to sinus Lovenox 1mg/kg as above, eventual OAC (CHADSVASC at least 3) 4. Elevated BNP LVEF 60-65% clinically in CHF Full Code DVT pptx, Lovenox Endorses his his HCP Quality Stroke Does the patient have a stroke diagnosis?: No VTE Prior VTE?: No VTE Risk Level:: Medical - moderate - high VTE Device Contraindication: Treatment Not Indicated VTE Drug Contraindication: N/A - Med Ordered
[2021-04-24 10:53] VITALS: BP 183/90; PULSE 50; RESP 18; TEMP 36.6; O2SAT 96
--- NOTE | 2021-04-24 14:34 | P.PNCA_ITS ---
Subjective Subjective Date of Service: 04/24/21 Principal diagnosis: Elevated troponins, paroxysmal atrial fibrillation Interval history: Patient with no current symptoms. Underwent myocardial perfusion imaging. This did not show any reversible defects, shows fixed inferior wall defect will motion with gated LVEF of 50% which is lower than what noted on echocardiogram with no wall motion abnormalities. No recurrent atrial fibrillation. Blood pressure remains significantly elevated Review of Systems Review of Systems Yes all other systems are reviewed and are negative Physical Exam Vital Signs: Last Vital Signs Temp 97.9 F 04/24/21 10:53 Pulse 50 04/24/21 10:53 Resp 18 04/24/21 10:53 BP 183/90 H 04/24/21 10:53 Pulse Ox 96 04/24/21 10:53 BMI result Body Mass Index 34.4 Const General: cooperative, comfortable, no acute distress, alert and awake Nutritional Appearance: overweight Orientation/consciousness: patient oriented x3 Neck Neck: Yes trachea midline, Yes supple and Yes no JVD Resp Effort & Inspection: normal respiratory effort Auscultation: clear to auscultation bilaterally Cardio Jugular venous distension: no JVD Palpation: normal PMI Rate: regular rate Rhythm: regular rhythm Heart sounds: S1 normal heart sound present, S2 normal heart sound present, no click and no gallops Skin General skin exam: no rashes or lesions noted Neuro General: patient oriented x3 and no focal motor deficits Extrem General: Yes no clubbing, cyanosis or edema Objective Labs and Meds Result diagrams: 04/23/21 06:58 04/23/21 06:58 Imaging Radiologist's impression: Impressions Myocardial Perfusion Scan Nuc Med 04/24/21 11:00 Impression: 1. Myocardial perfusion imaging study shows fixed inferior wall defect which may suggest nontransmural infarct. Severe ischemia cannot be entirely ruled out 2. Gated LVEF is 49% 3. Transient ischemic dilatation present EKG is nondiagnostic for ischemia Progress Note: A&P Assessment and plan (1) Paroxysmal atrial fibrillation: Status: Acute Assessment and Plan: Patient presents sudden onset exertional shortness of breath and was noted to be in atrial fibrillation converted to sinus rhythm. No new symptoms since then. Question symptoms related to atrial fibrillation versus underlying coronary artery disease. Currently doing well without active exertional symptoms. Can be discharged home. Continue bisoprolol therapy along with quinapril. Add Norvasc and maximize it. Advised to monitor blood pressure at home. Start on oral anticoagulation therapy with Eliquis 5 mg b.i.d. for stroke prevention. This was discussed with him. (2) Elevated troponin: Status: Acute Assessment and Plan: Minimally elevated troponins in the setting of atrial fibrillation rapid ventricular response question demand. Her underlying coronary artery disease likely. His myocardial perfusion imaging showed fixed inferior defect with wall motion abnormality which was not noted on echocardiogram. There is also presence of transient ischemic dilatation. Will schedule him for outpatient cardiac catheterization in near future. This was discussed with him. He is a greeable. Advised to avoid sudden strenuous exertion. Continue maximize medical therapy especially control of his blood pressure. (3) Uncontrolled hypertension: Status: Acute Assessment and Plan: Management as above. Increase Norvasc to 10 mg daily. Continue bisoprolol as well as quinapril therapy. Will follow up in the clinic after cardiac catheterization. Fall Risk Details Current Medications: Current Medications Acetaminophen (Acetaminophen 325 Mg Tablet) 650 mg PO Q6H PRN PRN Reason: Pain, Mild (Pain Scale 1-3) Amlodipine Besylate (Amlodipine Besylate 5 Mg Tablet) 5 mg PO DAILY [facility]; Protocol Last Admin: 04/24/21 09:03 Dose: 5 mg Documented by: Aspirin (Aspirin Enteric Coated 81 Mg Tablet.) 81 mg PO DAILY [facility] Last Admin: 04/24/21 09:03 Dose: 81 mg Documented by: Atorvastatin Calcium (Atorvastatin Calcium 40 Mg Tablet) 40 mg PO BEDTIME [facility] Last Admin: 04/23/21 20:49 Dose: 40 mg Documented by: Bisoprolol Fumarate (Bisoprolol Fumarate 5 Mg Tablet) 10 mg PO DAILY [facility] Last Admin: 04/24/21 09:03 Dose: 10 mg Documented by: Lisinopril (Lisinopril 40 Mg Tablet) 40 mg PO DAILY [facility] Last Admin: 04/24/21 09:03 Dose: 40 mg Documented by: Magnesium Oxide (Magnesium Oxide 400 Mg Tablet) 400 mg PO DAILY [facility] Last Admin: 04/24/21 09:03 Dose: 400 mg Documented by: Morphine Sulfate (Morphine Sulfate 4 Mg/Ml Cartridge) 4 mg IVPUSH Q4H PRN; Protocol PRN Reason: Pain, Severe (Pain Scale 7-10) Ondansetron HCl (Ondansetron Hcl 4 Mg/2 Ml Vial) 4 mg IVPUSH Q8H PRN PRN Reason: Nausea and Vomiting Pharmacy Consult (Consult Rx Perform Med Rec) 1 each MISCELLANE ONCE PRN PRN Reason: Consult order Sodium Chloride (0.9 % Sodium Chloride Flush 3 Ml Syringe) 3 ml IVFLUSH [facility] Last Admin: 04/24/21 09:01 Dose: 3 ml Documented by: Time Spent With Patient Time: Total time spent is greater than 50% in coordination of care (as documented) at patient's floor/unit and/or counseling patient: Time with patient: 25 - 35 minutes Progress Note: Quality Stroke Does the patient have a stroke diagnosis?: No Procedures Date of Service Date of Service: 04/24/21
--- NOTE | 2021-04-24 15:09 | P.DS_ITS ---
DS: Providers Provider Date of Service: 04/24/21 Date of admission: 04/22/21 15:13 Primary care physician: Faraz Angeles MD Consults: 04/22/21 15:14 Consult to Cardiology Routine Consulting Provider: Julian Tong Reason for consultation: ACS DS: Diagnosis Discharge Diagnosis (1) Acute coronary syndrome: Status: Acute (2) Paroxysmal atrial fibrillation: Status: Acute (3) Uncontrolled hypertension: Status: Acute DS: Summary Hospital Course Hospital Course: From admission H&P: This is a 75 year old M with a PMH of HTN who presents to [facility] [place] ED after acute onset of shortness of breath during his morning, 4-mile walk. The patient is accompanied by is his grandson who is a microphone operator. He reports that he was feeling in his usual state of health this morning. He walks about 4 miles daily and generally does not have any cardiac or pulmonary symptoms. He reports that about half way through his walk, he began feeling short of breath, of sudden onset-- he describes it has unable to take a deep breath. Immediately after this, he felt extreme dizziness, but denies any LOC or fall. He denies any cardiac type pain before, during and after this event. He reports that his dizziness last about 3 minutes and when this subsided he walked home. His grandson reports diaphoresis during this time. He reports extreme fatigue by the time he reached home. He reports that once home, he slept for about 1 hour and after this his symptoms subsided. He spoke with his grandson with the plans to see his PCP, but however, at the urging of his grandson, he came to the ED. In the ED, the patients EKG showed A. Fib with a competing junctional pacemaker. His HS trop-I were elevated, first 36 followed by 63. His BNP was 351. He will be given asa 325 x 1, started on lovenox 1mg kg/bid and will be admitted for suspected ACS. COVID Vaccination status: Pfizer 2 dose series + booster Hospital Course: Patient was admitted for suspected ACS and newonset A. Fib. For his ACS -- he was treated medically with 48 hours of anticoagulation. He was initiated on statin therapy (lipitor 40mg), continue on asa 81 and beta-ming. He underwent work up including 2d Echo which showed preserved EF and no RWMA. He subsequently underwent with myocardial perfusion imaing which showed a fixed interior defect with WMA which was not noted on echo. He will be scheduled for an outpatient cardiac catherization in the near future. He has been instructed to avoid strenuous excise until that time. In regards to his new onset PAF -- he con verted to sinus and remains so at time of discharge. He will be discharged on Eliquis 5mg BID to start this evening. Lastly, the patient was noted to have uncontrolled HTN despite his home medications. Norvasc 5mg was initiated in the hospital and will be increased to 10mg at the time of discahrge. BP checked prior to d/c by me personally -- 154/88. His diagnosis and treatment plan were discussed with him and his grandson (who is a microphone operator) prior to discharge. Time Spent with Patient Time attestation: Total time spent providing and/or coordinating discharge services: Discharge coordination time: Greater than 30 minutes Quality: Stroke Does the patient have a stroke diagnosis?: No Physical Exam Vital Signs: Vital Signs: Last Vital Signs Temp 97.9 F 04/24/21 10:53 Pulse 50 04/24/21 10:53 Resp 18 04/24/21 10:53 BP 183/90 H 04/24/21 10:53 Pulse Ox 96 04/24/21 10:53 BMI result Body Mass Index 34.4 Const: Other: General - no acute distress, appears comfortable Cardiovascular - regular rate and rhythm, S1-S2 Lungs - normal respiratory effort, clear to auscultation bilaterally, no wheezing Abdomen - soft, nontender, no rebound or guarding Extremities - no edema bilaterally Neuro - awake and alert, no focal deficits Discharge Plan Discharge Patient Disposition: Home, Self-Care Discharge Diagnosis: Acute Coronary Syndrome Referrals: Faraz Angeles MD [Primary Care Provider] - 1 Week Discharge Medications: New amlodipine 10 mg tablet 10 mg PO DAILY Qty: 90 0RF apixaban 5 mg tablet 5 mg PO BID Qty: 180 0RF rosuvastatin 10 mg tablet 10 mg PO DAILY Qty: 90 0RF Continued bisoprolol-hydrochlorothiazide 10-6.25 mg tablet 1 tab PO DAILY 0RF aspirin 81 mg Tablet,Delayed Release (Dr/Ec) 81 mg PO DAILY 0RF quinapril 40 mg tablet 1 tab PO DAILY 0RF magnesium oxide 400 mg magnesium Tablet 400 mg PO DAILY 0RF Discharge Orders: Discharge Order (Routine); Ordered 04/24/21 Ordered By: Yohan Eddy Diet: low fat, low cholesterol and low salt diet Activity on Discharge: As tolerated Stand Alone Forms: Patient Portal Discharge page Care Plan Goals: To stay healthy and out of the hospital. To get work up for heart disease Health Concerns: CAD PAF HTN Plan of Treatment: CAD - take aspirin, take Crestor (Rosouvastatin), no strenous exercise, you will be contacted by cardiology clinic for cardiac catherization at [facility]. If you have any shortness of breath, chest pain, dizziness -- return to the ED immediately PAF - you are in regular rhythm. Start Eliquis 5mg twice daily this evening HTN - Take your usual bp meds. Start Norvasc 10mg daily Assessment: see d/c summary
--- NOTE | 2021-04-24 15:23 | MHC.CM.PN ---
pt dcd home with no skilled servceis orderd by
== END 2021-04-24 16:59 | disposition home or self-care (01) | DRG 309 ==
LOC: HO.ED 12:36 → HO.EDOVER 15:31 → HO.IMC 04-24 08:02
PROVIDERS: Physician Assistant; Admitting Provider Family Medicine; Emergency Provider Emergency Medicine; PCP Internal Medicine; Visit Provider Family Medicine
DX: I48.0 Paroxysmal atrial fibrillation (principal); I24.9 Acute ischemic heart disease, unspecified; I10 Essential (primary) hypertension; I49.1 Atrial premature depolarization; Z87.891 Personal history of nicotine dependence; Z79.01 Long term (current) use of anticoagulants; Z79.82 Long term (current) use of aspirin; Z79.899 Other long term (current) drug therapy
CPT/HCPCS: 36415; 71046; 78452; 80048; 80061; 83880; 84484; 85025; 85027; 87635; 93005; 93017; 93306; 99285; A9500; J0280; J1650; J2785; Q9957

== ENCOUNTER → 2021-05-22 14:30 | Outpatient (BNVA) | payer MEDICARE, SELFPAY | PROVIDERS: PCP Internal Medicine; Visit Provider Nurse Practitioner Family | DX: Z09 Encounter for follow-up examination after completed treatment for conditions other than malignant neoplasm (principal); I25.10 Atherosclerotic heart disease of native coronary artery without angina pectoris; I48.0 Paroxysmal atrial fibrillation; I10 Essential (primary) hypertension; Z98.890 Other specified postprocedural states | CPT/HCPCS: 99212 ==

== ENCOUNTER → 2021-05-30 07:16 | Outpatient (REF) | payer MEDICARE, SELFPAY ==
--- NOTE | 2021-05-30 07:20 | HM_ITS ---
Conclusion: 1. Patient was monitored for total period of 3 days and 1 hour 2. Baseline rhythm was sinus rhythm but predominantly sinus bradycardia with average heart of 53 beats per minute 3. No significant pauses noted 4. No significant arrhythmias noted 5. No patient reported events MTDD
== END ==
LOC: HO.CARD 07:16
PROVIDERS: Visit Provider Nurse Practitioner Family
DX: I48.0 Paroxysmal atrial fibrillation (principal)
CPT/HCPCS: 93242

== ENCOUNTER → 2021-09-12 09:07 | Outpatient (BNVA) | payer MEDICARE, SELFPAY | PROVIDERS: PCP Internal Medicine; Visit Provider Internal Medicine Cardiovascular Disease | DX: I48.0 Paroxysmal atrial fibrillation (principal); I25.10 Atherosclerotic heart disease of native coronary artery without angina pectoris | CPT/HCPCS: 99212 ==

== ENCOUNTER 2021-11-18 06:04 | Outpatient (REF) | payer MEDICARE, SELFPAY ==
[2021-11-18 08:04] LABS: Cholesterol 100 mg/dL; HDL Cholesterol 39 mg/dL; LDL Cholesterol Calculated 40 mg/dl; Triglycerides 106 mg/dL
== END 2021-11-18 06:05 | disposition home or self-care (01) ==
LOC: HO.LAB 06:04
PROVIDERS: PCP Internal Medicine; Visit Provider Internal Medicine Cardiovascular Disease
DX: I25.10 Atherosclerotic heart disease of native coronary artery without angina pectoris (principal)
CPT/HCPCS: 36415; 80061

== ENCOUNTER 2022-02-04 12:12 | Outpatient (REF) | payer MEDICARE, SELFPAY ==
--- NOTE | ~2022-02-04 | XR_ITS ---
EXAMINATION: XR CHEST CLINICAL INFORMATION: Wheezing COMPARISON: X-ray 04/22/2021 TECHNIQUE: 2 views of the chest were obtained. FINDINGS: The cardiac and mediastinal silhouette is stable as compared to previous. There is central vascular prominence, unchanged from previous. No overt pulmonary edema. Lungs are slightly hypoexpanded. There is peribronchial thickening .No focal consolidation. No effusion, edema. No pneumothorax. Thoracic spine degeneration. Surgical clips in the upper abdomen. XR/XR chest 2V IMPRESSION: Bronchial wall thickening can be seen with infectious or inflammatory process. No focal consolidation is seen.
== END 2022-02-04 12:13 | disposition home or self-care (01) ==
LOC: HO.XRAY 12:12
PROVIDERS: PCP Internal Medicine; Visit Provider Physician Assistant
DX: R31.9 Hematuria, unspecified (principal); R06.2 Wheezing
CPT/HCPCS: 71046; 87086

== ENCOUNTER 2022-02-04 15:04 | Outpatient (REF) | payer MEDICARE, SELFPAY ==
[2022-02-04 18:16] LABS: Bacteria Urine None Seen (None Seen); Hyaline Casts Urine 0-2 /LPF (0-2); RBC Urine >20 /HPF (0-2); Squamous Epithelial Cell Urine 0-2 /HPF (0-2); WBC Urine 0-5 /HPF (0-5)
[2022-02-04 18:19] LABS: Appearance Urine Clear; Color Urine Red; Glucose Urine UA Negative (Negative); Leukocyte Esterase Urine Trace (Negative); Nitrite Urine Negative (Negative); UMIC TRIGGER UACC YES; Urine Blood Large (3+) (Negative); Urine Ketones Negative (Negative); Urine Protein 30 (1+) mg/dL (Neg-Trace)
== END 2022-02-04 15:05 | disposition home or self-care (01) ==
LOC: HO.MANLDS 15:04
PROVIDERS: Visit Provider Physician Assistant
DX: R31.9 Hematuria, unspecified (principal)
CPT/HCPCS: 81001; 87086

== ENCOUNTER 2022-02-05 14:37 | Outpatient (REF) | payer MEDICARE, SELFPAY ==
--- NOTE | ~2022-02-05 | CT_ITS ---
EXAMINATION: CT ABDOMEN AND PELVIS WITHOUT CONTRAST CLINICAL INFORMATION: Hematuria. COMPARISON: None TECHNIQUE: Multidetector volumetric imaging was performed from the superior aspect of the liver through the pubic symphysis. Sagittal and coronal reformatted images were obtained on the technologist's workstation. This CT examination was performed using dose optimization techniques as appropriate, variously including the following: *Automated exposure control *Adjustment of mA and/or kV according to patient size (this includes techniques or standardized protocols for targeted exams where dose is matched to indication/reason for exam; i.e. extremities or head) *Use of iterative reconstruction technique DLP: 528 mGy-cm FINDINGS: LUNG BASES: There are small bilateral pleural effusions with minimal right basilar compressive atelectasis. The heart size is normal. LIVER, GALLBLADDER, AND BILIARY TREE: The liver is normal in size, shape, and attenuation. No focal hepatic lesion or biliary ductal dilatation is present. The gallbladder has been surgically removed. PANCREAS: Unremarkable. SPLEEN: Unremarkable. ADRENAL GLANDS: Unremarkable. KIDNEYS AND URETERS: The right kidney is normal size, shape and position. No radiopaque calculi are seen. 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 There is a 9 mm nonobstructive radiopaque calculus lower pole of left kidney without caliectasis or hydronephrosis. BLADDER: Unremarkable. GASTROINTESTINAL TRACT: There is scattered stool and gas seen throughout the colon without significant distention. The small bowel loops are normal caliber. The stomach is nondistended. The appendix is normal caliber with an appendicolith seen within. ABDOMINAL WALL: There is a thick scar at the level of the umbilicus likely from previous intervention. LYMPH NODES: Normal. VASCULAR: The abdominal aorta is of normal caliber. Mild narrowing involving the celiac artery is suspected with a small calcified plaque. PELVIC VISCERA: There is moderate prostate enlargement. The periprostatic fat planes are preserved. No abnormal pelvic or inguinal lymph nodes. OSSEOUS STRUCTURES: No aggressive lytic or sclerotic process seen. There are degenerative disc changes with vacuum disc phenomena at the L4-L5 and L3-L4 disc levels. Mild canal stenosis is noted at the L3-L4 and L4-L5 disc levels. CT/CT abdomen pelvis wo IV con IMPRESSION: 1. Nonobstructive 9 mm radiopaque calculus lower pole of left kidney. No caliectasis or hydronephrosis. A mildly rotated left kidney is noted. 2. Mild constipation. Normal appendix with several calcified appendicolith within. 3. Bilateral small pleural effusions with right basilar atelectasis. 4. Degenerative disc changes with vacuum disc phenomena at the L4-L5 and L3-L4 disc levels with mild canal stenosis at the L3-L4 and L4-L5 disc levels. Fleischner guidelines were followed.
== END 2022-02-05 14:38 | disposition home or self-care (01) ==
LOC: HO.CT 14:37
PROVIDERS: PCP Internal Medicine; Visit Provider Physician Assistant
DX: R31.9 Hematuria, unspecified (principal)
CPT/HCPCS: 74176

== ENCOUNTER 2022-02-24 08:17 | Outpatient (REF) | payer MEDICARE, SELFPAY ==
--- NOTE | ~2022-02-24 | XR_ITS ---
EXAMINATION: XR CHEST CLINICAL INFORMATION: Heart failure. COMPARISON: 02/04/2022 TECHNIQUE: 2 views of the chest were obtained. FINDINGS: Lungs are well expanded. No acute pulmonary findings. No airspace disease or interstitial infiltrate. Previously observed small pleural effusions have resolved. Cardiac silhouette is in the normal size range. The visualized bones are intact. Cholecystectomy clips are present in the right upper quadrant the abdomen. XR/XR chest 2V IMPRESSION: * No evidence of active congestive heart failure. * Small pleural effusions seen on 02/04/2022 have subsequently resolved.
[2022-02-24 11:12] LABS: Anion Gap 11 (12-20); B Type Natriuretic Peptide 178 pg/mL (<100); Blood Urea Nitrogen 16 mg/dL (9-16); Carbon Dioxide 28 mmol/L (22-29); Chloride 105 mmol/L (96-108); Estimated Glomerular Filt Rate > 60; Glucose Random 188 mg/dL (60-115); Potassium 4.1 mmol/L (3.3-5.1); Sodium 140 mmol/L (135-145)
== END 2022-02-24 08:18 | disposition home or self-care (01) ==
LOC: HO.LAB 08:17
PROVIDERS: PCP Internal Medicine; Visit Provider Internal Medicine Cardiovascular Disease
DX: I50.9 Heart failure, unspecified (principal); R06.2 Wheezing; I48.0 Paroxysmal atrial fibrillation; I25.10 Atherosclerotic heart disease of native coronary artery without angina pectoris; Z79.899 Other long term (current) drug therapy
CPT/HCPCS: 36415; 71046; 80048; 83880; 99212

== ENCOUNTER → 2022-03-05 07:45 | Outpatient (REF) | payer MEDICARE, SELFPAY ==
--- NOTE | 2022-03-05 07:49 | CA_ITS ---
Transthoracic Echocardiogram Patient (Last, First, Middle): Filippo Nicole, Gender: Male Date of : 1945 Age: 76 Procedure Date: 03/05/2022 Procedure Type: Transthoracic Echocardiogram Location: OP Height: 167.64 cm Weight: 92.99 kg BSA: 2.02 m2 Heart Rate: 53 bpm BP: 142 / 80 mmHg Head Sampler: [id number] Referring MD: Julian Tong MD Limb Driver: Julian Tong MD Symptoms: I50.9 - Heart failure, unspecified Study Quality: Adequate w contrast ECG Rhythm: Bradycardia Conclusions: - 1. Normal LV systolic function with pseudonormal filling pattern 2. Trace aortic regurgitation 3. Upper limits of normal RV systolic pressure 4. No gross pericardial effusion Findings Procedure Information Contrast agent, definity, is being given per protocol without apparent complications. Left Ventricle The visually estimated ejection fraction is between 60-65%. Spectral Doppler is indicative of a pseudonormal filling pattern. E/E prime ratio is between 8 and 15 consistent with indeterminate filling pressures. There is mild septal asymmetric hypertrophy. Right Ventricle Mildly increased right ventricular cavity size. There is normal right ventricular systolic function. Atria The left atrium is likely dilated. There is lipomatous hypertrophy of the interatrial septum. There is no evidence of interatrial shunt. The right atrium is normal in size. Aortic Valve There is mild calcification of the aortic valve. There is no aortic valve stenosis. There is trace (trivial) aortic valve regurgitation. Mitral Valve There is mild anterior and posterior mitral leaflet thickening. There is mild mitral annular calcification. There is trace mitral valve regurgitation. There is no mitral valve stenosis. Pulmonic Valve The pulmonic valve was not well visualized. Tricuspid Valve Likely normal tricuspid valve structure and function. There is mild tricuspid valve regurgitation. There is no evidence of pulmonary hypertension. Great Vessels All visible segments of the aorta are normal in size. The pulmonary artery was not well visualized. Venous The inferior vena cava is normal in size and collapses greater than 50% with inspiration. Pericardium/Pleural There is no evidence of pericardial effusion. Prior Study Comparison No significant change compared to prior study dated: 04/23/2021. Measurements 2D Linear Measurements IVSd: 1.36 0.6-0.9/0.6-1.0 cm LVIDd: 5.66 3.9-5.3/4.2-5.9 cm LVIDd Index: 2.80 2.4-3.2/2.2-3.1 cm/m2 LVIDs: 3.75 2.0-3.6 cm LVPWd: 0.98 0.7-1.1 cm LA Diam: 4.50 2.7-3.8/3.0-4.0 cm LAIDs Index: 2.23 1.5-2.3 cm/m2 LV Mass: 344.31 67-162/88-224 g LV Mass Index: 170.45 43-95/49-115 g/m2 LVOT Diam: 2.20 3.0+(-)1.3 cm 2D Systolic Function EF 4C: 70.50 >55% EF 2C: 60.80 >55% EF BiP: 66.30 >55% Mitral Valve MV Pk E: 0.78 MV PK A: 0.43 MV Decel Time: 276.00 E/A: 1.80 E'Lateral: 6.53 E'Medial: 4.80 E/E' Med: 16.30 E/E' Lat: 12.00 PHT: 81.00 MVA PHT: 2.72 Decel [place]: 2.84 Aortic Valve AoV Pk Marvin: 1.42 AoV Pk Grad: 8.00 SAMANTHA: 3.13 LVOT LVOT Pk Marvin: 1.17 LVOT Mn Marvin: 0.76 LVOT VTI: 0.26 LVOT Pk Grad: 5.00 LVOT Mn Grad: 3.00 LVOT Diam: 2.20 LVOT Area: 3.80 Diastolic Function MV Pk E: 0.78 MV Pk A: 0.43 E/A: 1.80 E'Medial: 4.80 E/E' Med: 16.30 E' Laterial: 6.53 E/E' Lat: 12.00 Right Ventricle TAPSE (mm): 23.80 TVS' Marvin: 12.80 Tricuspid Valve TR Pk Marvin: 2.97 TR Pk Grad: 35.00 RA Press: 3.00 RVSP: 38.00 Great Vessels Aorta Sinus of Valsalva: 3.50 2.0-3.5 cm Ao Asc: 3.60 2.1-3.4 cm Pulmonary Valve PV Pk Marvin: 1.09 Peak PV Grad: 5.00 Updated in Other Vendor System with Status of Final Julian Alycia MD electronically signed on 03/06/2022 12:08:57 PM with status of Final
== END ==
LOC: HO.CARD 07:45
PROVIDERS: Visit Provider Internal Medicine Cardiovascular Disease
DX: I50.9 Heart failure, unspecified (principal)
CPT/HCPCS: 93306; Q9957

== ENCOUNTER 2022-03-11 16:15 | Outpatient (REF) | payer MEDICARE, SELFPAY ==
--- NOTE | ~2022-03-11 | XR_ITS ---
EXAMINATION: XR CHEST CLINICAL INFORMATION: Pleural effusion COMPARISON: Chest radiographs 02/24/2022, CT abdomen 02/05/2022, chest radiograph 02/04/2022. TECHNIQUE: 2 views of the chest were obtained. FINDINGS: The lungs are clear. No airspace consolidation or groundglass opacity. The vascularity is normal. The costophrenic sulci are well-defined and there is no recurrent effusion. The cardiac and hilar and mediastinal contours and bony structures are stable. XR/XR chest 2V IMPRESSION: Lungs clear. No recurrent effusion.
== END 2022-03-11 16:16 | disposition home or self-care (01) ==
LOC: HO.XRAY 16:15
PROVIDERS: PCP Internal Medicine; Visit Provider Physician Assistant
DX: J90 Pleural effusion, not elsewhere classified (principal)
CPT/HCPCS: 71046

== ENCOUNTER → 2022-04-02 09:21 | Outpatient (BNVA) | payer MEDICARE, SELFPAY | PROVIDERS: PCP Internal Medicine; Visit Provider Internal Medicine Cardiovascular Disease | DX: Z13.89 Encounter for screening for other disorder (principal) ==

== ENCOUNTER 2022-04-02 10:54 | Inpatient (IN) | payer MEDICARE, SELFPAY ==
--- NOTE | ~2022-04-02 | FL_ITS ---
EXAMINATION: XR FLUOROSCOPY WITH IMAGES CLINICAL INFORMATION: Pacemaker placement COMPARISON: Previous chest x-ray most recent from yesterday TECHNIQUE: Fluoroscopy Supervised By: Kianna. Fluoroscopy Time: 382 seconds. Cumulative Dose: 150) mGy. Images: 1. FINDINGS: Images demonstrate a left-sided dual-chamber pacemaker with leads projecting over the right atrium and right ventricular apex. FL/FL guidance in OR IMPRESSION: Fluoroscopy guidance for pacemaker placement.
--- NOTE | ~2022-04-02 | XR_ITS ---
EXAMINATION: XR CHEST CLINICAL INFORMATION: Pacemaker. COMPARISON: Portable chest x-ray 04/02/2022 TECHNIQUE: Frontal portable view of the chest was obtained. 1601 hours FINDINGS: Pacemaker placement with lead in right atrium and right ventricle. There is no pneumothorax. Heart size is enlarged. Vascular calcifications of aorta. Lung volume is low with mild prominence of the central hilar vessels. No overt pulmonary edema. No focal consolidation. No pleural effusion . Surgical clips right upper quadrant of abdomen. XR/XR chest 1V IMPRESSION: Pacemaker placement with lead in right atrium and right ventricle. There is no pneumothorax.
--- NOTE | ~2022-04-02 | XR_ITS ---
EXAMINATION: XR PORTABLE CHEST CLINICAL INFORMATION: Shortness of breath COMPARISON: 03/11/2022 TECHNIQUE: AP portable upright view of the chest FINDINGS: Defibrillator pads are in place over the left chest. Mild chronic elevation of the right hemidiaphragm. Mild right basilar atelectasis is suspected No consolidation, pneumothorax, or pleural effusion. Cardiac and mediastinal contours are normal. Pulmonary vasculature is unremarkable. Osteoarthritis is present in the acromioclavicular and glenohumeral joints. XR/XR chest 1V IMPRESSION: No acute pulmonary findings
--- NOTE | ~2022-04-02 | XR_ITS ---
EXAMINATION: PORTABLE CHEST 1 VIEW CLINICAL INFORMATION: f/u new pacemaker placement . COMPARISON: 04/03/2022. TECHNIQUE: Portable frontal view of the chest was obtained. FINDINGS: Lungs well-expanded with mild asymmetric elevation the right hemidiaphragm. No associated focal infiltrate, effusion, edema, or pneumothorax. Cardiac silhouette within upper normal limits for size for this technique. Mild vascular calcification in aorta. Left pectoral dual-lead pacemaker seen with lead tips again overlying the right atrium and right ventricle. Multiple overlying EKG leads. Degenerative changes in the spine and shoulders. XR/XR chest 1V IMPRESSION: Left pectoral dual-lead pacemaker with lead tips overlying the right atrium and right ventricle. No pneumothorax.
--- NOTE | 2022-04-02 10:58 | ECG_ITS ---
Test Reason : sob Blood Pressure : / mmHG Vent. Rate : 038 BPM Atrial Rate : 000 BPM P-R Int : 000 ms QRS Dur : 112 ms QT Int : 496 ms P-R-T Axes : 000 -38 004 degrees QTc Int : 394 ms Junctional bradycardia Left axis deviation Moderate voltage criteria for LVH, may be normal variant ( R in aVL , Irving product ) Abnormal ECG When compared with ECG of 22-APR-2021 17:16, Junctional rhythm has replaced Sinus rhythm Referred By: Generic ED Physician Electronically Signed By:Arthur Paiz
--- NOTE | 2022-04-02 11:02 | ED_ITS ---
HPI - Arrhythmia/Palpitations General Chief Complaint: Dizziness <Cata Steel CNP - Last Filed: 04/02/22 11:06> Stated Complaint: abnormal ekg, sob <Cata Steel CNP - Last Filed: 04/02/22 11:06> Time Seen by Provider: 04/02/22 11:12 <Cata Steel CNP - Last Filed: 04/02/22 11:06> Source: patient <AMANDA Garcia - Last Filed: 04/02/22 13:08> Mode of arrival: ambulatory <AMANDA Garcia Last Filed: 04/02/22 13:08> Limitations: no limitations <AMANDA Garcia Last Filed: 04/02/22 13:08> History of Present Illness HPI narrative: 76 [id number] with pmHX of CAD, HTN, Afib on eliquis, HLD, vertigo presents from cardiology office with bradycardia and dizziness. Pt reports recent change from quinipril to lisinopril on Thursday with progressively worsening dizziness starting Thursday. Initially thought it was vertigo, but sts it is different and more like a lightheadedness as opposed to room spinning. S /sx became more noticeable yesterday to him when he was walking, became lightheaded as well as fatigued, and felt as though he didn't have enough strength to get back home. He denies chest pain, SOB, cough, fever. Denies lightheadedness/fatigue currently. No history of tick bites. He was at the cardiology office today and had EKG performed showing junctional bradycardia. He was told to come in to the ER by the office. <AMANDA Garcia - Last Filed: 04/02/22 13:08> MD complaint: irregular heart beat (symptomatic bradycardia) <AMANDA Garcia Last Filed: 04/02/22 13:08> Onset (ago): day(s) (5) <AMANDA Garcia - Last Filed: 04/02/22 13:08> Duration: intermittent <AMANDA Garcia Last Filed: 04/02/22 13:08> Severity: moderate <AMANDA Garcia Last Filed: 04/02/22 13:08> Context: occurred during exertion and change in medication <AMANDA Garcia - Last Filed: 04/02/22 13:08> Arrhythmia history: atrial fibrillation <AMANDA Garcia - Last Filed: 04/02/22 13:08> Associated symptoms: other (fatigue, lightheadedness) <AMANDA Garcia - Last Filed: 04/02/22 13:08> Related Data Home Medications: Home Medications Medication Instructions Recorded Confirmed glucosamine-chondroitin 250 mg-200 1 tab PO ONCE 05/22/21 04/02/22 mg tablet (Osteo Bi-Flex) bisoprolol 10 1 tab PO DAILY 04/02/22 04/02/22 mg-hydrochlorothiazide 6.25 mg tablet lisinopril 40 mg tablet 40 mg PO DAILY 04/02/22 04/02/22 Previous Rx's Medication Instructions Recorded amlodipine 5 mg tablet 5 mg PO DAILY #90 tabs 09/12/21 rosuvastatin 40 mg tablet (Crestor) 40 mg PO DAILY #90 tabs 09/12/21 apixaban 5 mg tablet 5 mg PO BID #180 tabs 10/14/21 <Cata Steel CNP - Last Filed: 04/02/22 11:06> Allergies/Adverse Reactions: Allergies Allergy/AdvReac Type Severity Reaction Status Date / Time No Known Allergies Allergy Mild N/A Verified 04/02/22 11:05 <Cata Steel CNP - Last Filed: 04/02/22 11:06> Review of Systems Review of Systems: Yes all other systems are reviewed and are negative <AMANDA Garcia - Last Filed: 04/02/22 13:08> [facility] Past Medical History Medical History: Medical History Acute coronary syndrome CAD (coronary artery disease) CTS (carpal tunnel syndrome) HTN (hypertension) Paroxysmal atrial fibrillation Uncontrolled hypertension Vertigo <Cata Steel CNP - Last Filed: 04/02/22 11:06> Surgical History: Surgical History H/O umbilical hernia repair History of cardiac cath Hx of cholecystectomy <Cata Steel CNP - Last Filed: 04/02/22 11:06> Family History Family History: Family History Brother CAD (coronary artery disease) <Cata Steel CNP - Last Filed: 04/02/22 11:06> Social History Social History: Social History Household Members: Spouse Housing: House Do you presently have visiting nurse or other home services: No Alcohol intake: never Patient Tobacco Use Status: Former Tobacco user Quit Date: quit 50+ years ago Advance Directives: Yes Advance Directives Information Provided: No Advance Directives on File: No service: Yes Current occupational status: retired <Cata Steel CNP - Last Filed: 04/02/22 11:06> Physical Exam Vital Signs: Vital Signs: Last Vital Signs Temp 98 F 04/02/22 11:06 Pulse 39 L 04/02/22 11:06 Resp 04/02/22 11:06 BP 148/54 H 04/02/22 11:06 Pulse Ox 98 04/02/22 11:06 O2 Del Method 04/02/22 11:06 BMI result Body Mass Index 33.0 <Cata Steel CNP - Last Filed: 04/02/22 11:06> Vital Signs: Last Vital Signs Temp 98 F 04/02/22 11:06 Pulse 39 L 04/02/22 11:06 Resp 04/02/22 11:06 BP 148/54 H 04/02/22 11:06 Pulse Ox 98 04/02/22 11:06 O2 Del Method 04/02/22 11:06 BMI result Body Mass Index 33.0 <AMANDA Garcia - Last Filed: 04/02/22 13:08> Appearance: Alert. Oriented X3. No acute distress. Eyes: Pupils equal, round and reactive to light and accommodation. EOM intact. ENT: Pharynx normal. Neck: Normal inspection. Neck supple. CVS: Bradycardic rhythm. Pulses normal. Respiratory: No respiratory distress. Breath sounds normal. Abdomen: Soft and nontender. +BS x4 Skin: Skin warm and dry. Normal skin color. Normal skin turgor. No rashes. Extremities: No lower extremity edema. 5/5 strength in all extremities. Normal sensation to all extremities. Neuro: Oriented X 3. No motor deficit. No sensory deficit. Visual chirinos intact. <AMANDA Garcia - Last Filed: 04/02/22 13:08> Course Course Course Narrative: This is an RME: Additional HPI, ROS, PE not included below will be deferred to primary provider. 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 Plan: labs, EKG, spoke with battery charger tester, PT to go directly back to main ED <Cata Steel CNP - Last Filed: 04/02/22 11:06> This is an RME: Additional HPI, ROS, PE not included below will be defe rred to primary provider. 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 Plan: labs, EKG, spoke with battery charger tester, PT to go directly back to main ED 1140: Pt currently denies lightheadedness, asymptomatic. Work-up initiated. <AMANDA Garcia - Last Filed: 04/02/22 13:08> Reevaluation(s) Reevaluation #1: EKG with junctional bradycardia - Dr. Paiz aware. K+ normal. BP remains stable. He is on a betablocker, dose not recently changed. Recommending admit for observation. Hospitalist TT for admission <AMANDA Garcia - Last Filed: 04/02/22 13:08> Consultations Consultation #1: cardiology - Dr. Paiz <AMANDA Garcia - Last Filed: 04/02/22 13:08> Medications Administered Discontinued Medications Generic Name Dose Route Start Last Admin Trade Name Freq PRN Reason Stop Dose Admin Sodium Chloride 500 mls @ 500 mls/hr 04/02/22 11:45 04/02/22 11:54 Ns IV 04/02/22 12:44 500 mls/hr .Q1H KRYSTYNA Administration <Cata Steel CNP - Last Filed: 04/02/22 11:06> Medications Administered Discontinued Medications Generic Name Dose Route Start Last Admin Trade Name Marcela PRN Reason Stop Dose Admin Sodium Chloride 500 mls @ 500 mls/hr 04/02/22 11:45 04/02/22 11:54 Ns IV 04/02/22 12:44 500 mls/hr .Q1H KRYSTYNA Administration <AMANDA Garcia - Last Filed: 04/02/22 13:08> Medical Decision Making Medical Decision Making MDM Narrative: 76 [id number] with pmHX of CAD, HTN, Afib on eliquis, HLD, vertigo presents with bradycardia and dizziness. Based on presentation and history of medication change, most likely differential diagnosis is symptomatic bradycardia d/t medication changes. Other differentials include heart block, junctional bradycardia, slow a fib, medication reaction, Sick sinus syndrome, hyperkalemia, tick borne illness. Tick borne illness is less likely on the differential d/t season and lack of bite history. <AMANDA Garcia - Last Filed: 04/02/22 13:08> Differential Diagnosis Differential Diagnoses: The differential diagnosis associated with the presentation includes <AMANDA Garcia - Last Filed: 04/02/22 13:08> Differential diagnosis includes symptomatic bradycardia d/t medication changes, heart block, junctional bradycardia, slow a fib, medication reaction, sick sinus syndrome, hyperkalemia, tick borne illness <AMANDA Garcia - Last Filed: 04/02/22 13:08> Admission/Observation Consideration of admission/observation: Escalation of care including admission/observation considered <AMANDA Garcia - Last Filed: 04/02/22 13:08> Consult Healthcare Provider Management of the patient was discussed with: Hospitalist and Rn Intern <AMANDA Garcia - Last Filed: 04/02/22 13:08> Dr. Paiz from cardiology - admit for observation <AMANDA Garcia - Last Filed: 04/02/22 13:08> Lab Data [facility] Lab Attestation statement: I reviewed the patient's lab results. <AMANDA Garcia - Last Filed: 04/02/22 13:08> Normocytic anemia, mild. No leukocytosis. No hyperkalemia. Normal renal function. BNP 367, from 178 last month. No evidence of volume overload or acute heart failure. Troponin is 26, will get 3 hour repeat. <AMANDA Garcia - Last Filed: 04/02/22 13:08> Result Diagrams: 04/02/22 11:33 04/02/22 11:33 <Cata Steel CNP - Last Filed: 04/02/22 11:06> Labs: Lab Results 04/02/22 04/02/22 04/02/22 Range/Units 11:33 11:33 11:33 WBC 6.5 (4.8-10.8) X10*3/uL RBC 4.51 L (4.60-5.80) X10*6/uL Hgb 12.7 L (14.0-18.0) g/dl Hct 38.9 L (42.0-52.0) % MCV 86.3 (80.0-98.0) fL MCH 28.2 (27.0-33.0) pg MCHC 32.6 (31.0-36.0) g/dl RDW 13.2 (11.0-16.0) % Plt Count 198 (160-400) X10*3/uL MPV 9.7 (9.4-12.4) fL Immature Gran % (Auto) 0.2 (0.0-0.4) % Neut % (Auto) 73.0 (45-73) % Lymph % (Auto) 15.7 L (20-40) % [place] % (Auto) 9.6 (2-11) % Eos % (Auto) 1.2 (0-4) % Baso % (Auto) 0.3 (0-2) % Lymph # (Auto) 1.0 L (1.2-4.9) X10*3/uL [place] # (Auto) 0.6 (0.1-1.2) X10*3/uL Eos # (Auto) 0.1 (0.0-0.4) X10*3/uL Baso # (Auto) 0.0 (0.0-0.2) X10*3/uL Abs Immat Gran (auto) 0.01 (0.00-0.03) X10*3/uL Absolute Neuts (auto) 4.7 (2.0-8.3) x10*3/uL Absolute Nucleated RBC 0.000 (0.0-0.012) X10*3/uL Nucleated RBC % (auto) 0.0 (0.0-0.2) /100WBC PT 16.5 H (10.0-13.1) SEC INR 1.4 H (0.9-1.1) Sodium 144 (135-145) mmol/L Potassium 4.8 (3.3-5.1) mmol/L Chloride 112 H (96-108) mmol/L Carbon Dioxide 24 (22-29) mmol/L Anion Gap 13 (12-20) BUN 21 H (9-16) mg/dL Creatinine 0.97 (0.5-1.4) mg/dL Estim Creat Clear Calc 68.0 Estimated GFR > 60 Random Glucose 137 H (60-115) mg/dL Calcium 8.7 (8.4-10.2) mg/dL Magnesium 2.1 (1.6-2.6) mg/dL Total Bilirubin 0.5 (0.0-1.0) mg/dL AST 23 (5-37) U/L ALT 23 (0-40) U/L Alkaline Phosphatase 105 (39-117) U/L Troponin I High Sens (<3.5-35.0) ng/L B-Natriuretic Peptide (<100) pg/mL Total Protein 6.3 L (6.5-8.0) g/dL Albumin 3.8 (3.5-5.0) g/dL COVID-19 (REUBEN) (Negative) COVID-19 Clin Com Influenza Type A (ELYSSA) (Negative) Influenza Type B (ELYSSA) (Negative) Influenza A & B Note 04/02/22 04/02/22 04/02/22 Range/Units 11:33 11:33 11:33 WBC (4.8-10.8) X10*3/uL RBC (4.60-5.80) X10*6/uL Hgb (14.0-18.0) g/dl Hct (42.0-52.0) % MCV (80.0-98.0) fL MCH (27.0-33.0) pg MCHC (31.0-36.0) g/dl RDW (11.0-16.0) % Plt Count (160-400) X10*3/uL MPV (9.4-12.4) fL Immature Gran % (Auto) (0.0-0.4) % Neut % (Auto) (45-73) % Lymph % (Auto) (20-40) % [place] % (Auto) (2-11) % Eos % (Auto) (0-4) % Baso % (Auto) (0-2) % Lymph # (Auto) (1.2-4.9) X10*3/uL [place] # (Auto) (0.1-1.2) X10*3/uL Eos # (Auto) (0.0-0.4) X10*3/uL Baso # (Auto) (0.0-0.2) X10*3/uL Abs Immat Gran (auto) (0.00-0.03) X10*3/uL Absolute Neuts (auto) (2.0-8.3) x10*3/uL Absolute Nucleated RBC (0.0-0.012) X10*3/uL Nucleated RBC % (auto) (0.0-0.2) /100WBC PT (10.0-13.1) SEC INR (0.9-1.1) Sodium (135-145) mmol/L Potassium (3.3-5.1) mmol/L Chloride (96-108) mmol/L Carbon Dioxide (22-29) mmol/L Anion Gap (12-20) BUN (9-16) mg/dL Creatinine (0.5-1.4) mg/dL Estim Creat Clear Calc Estimated GFR Random Glucose (60-115) mg/dL Calcium (8.4-10.2) mg/dL Magnesium (1.6-2.6) mg/dL Total Bilirubin (0.0-1.0) mg/dL AST (5-37) U/L ALT (0-40) U/L Alkaline Phosphatase (39-117) U/L Troponin I High Sens 26.9 (<3.5-35.0) ng/L B-Natriuretic Peptide 367 H (<100) pg/mL Total Protein (6.5-8.0) g/dL Albumin (3.5-5.0) g/dL COVID-19 (REUBEN) (Negative) COVID-19 Clin Com Influenza Type A (ELYSSA) Negative (Negative) Influenza Type B (ELYSSA) Negative (Negative) Influenza A & B Note See Note 04/02/22 Range/Units 11:33 WBC (4.8-10.8) X10*3/uL RBC (4.60-5.80) X10*6/uL Hgb (14.0-18.0) g/dl Hct (42.0-52.0) % MCV (80.0-98.0) fL MCH (27.0-33.0) pg MCHC (31.0-36.0) g/dl RDW (11.0-16.0) % Plt Count (160-400) X10*3/uL MPV (9.4-12.4) fL Immature Gran % (Auto) (0.0-0.4) % Neut % (Auto) (45-73) % Lymph % (Auto) (20-40) % [place] % (Auto) (2-11) % Eos % (Auto) (0-4) % Baso % (Auto) (0-2) % Lymph # (Auto) (1.2-4.9) X10*3/uL [place] # (Auto) (0.1-1.2) X10*3/uL Eos # (Auto) (0.0-0.4) X10*3/uL Baso # (Auto) (0.0-0.2) X10*3/uL Abs Immat Gran (auto) (0.00-0.03) X10*3/uL Absolute Neuts (auto) (2.0-8.3) x10*3/uL Absolute Nucleated RBC (0.0-0.012) X10*3/uL Nucleated RBC % (auto) (0.0-0.2) /100WBC PT (10.0-13.1) SEC INR (0.9-1.1) Sodium (135-145) mmol/L Potassium (3.3-5.1) mmol/L Chloride (96-108) mmol/L Carbon Dioxide (22-29) mmol/L Anion Gap (12-20) BUN (9-16) mg/dL Creatinine (0.5-1.4) mg/dL Estim Creat Clear Calc Estimated GFR Random Glucose (60-115) mg/dL Calcium (8.4-10.2) mg/dL Magnesium (1.6-2.6) mg/dL Total Bilirubin (0.0-1.0) mg/dL AST (5-37) U/L ALT (0-40) U/L Alkaline Phosphatase (39-117) U/L Troponin I High Sens (<3.5-35.0) ng/L B-Natriuretic Peptide (<100) pg/mL Total Protein (6.5-8.0) g/dL Albumin (3.5-5.0) g/dL COVID-19 (REUBEN) Negative (Negative) COVID-19 Clin Com See Note Influenza Type A (ELYSSA) (Negative) Influenza Type B (ELYSSA) (Negative) Influenza A & B Note <Cata Steel CNP - Last Filed: 04/02/22 11:06> Lab Results 04/02/22 04/02/22 04/02/22 Range/Units 11:33 11:33 11:33 WBC 6.5 (4.8-10.8) X10*3/uL RBC 4.51 L (4.60-5.80) X10*6/uL Hgb 12.7 L (14.0-18.0) g/dl Hct 38.9 L (42.0-52.0) % MCV 86.3 (80.0-98.0) fL MCH 28.2 (27.0-33.0) pg MCHC 32.6 (31.0-36.0) g/dl RDW 13.2 (11.0-16.0) % Plt Count 198 (160-400) X10*3/uL MPV 9.7 (9.4-12.4) fL Immature Gran % (Auto) 0.2 (0.0-0.4) % Neut % (Auto) 73.0 (45-73) % Lymph % (Auto) 15.7 L (20-40) % [place] % (Auto) 9.6 (2-11) % Eos % (Auto) 1.2 (0-4) % Baso % (Auto) 0.3 (0-2) % Lymph # (Auto) 1.0 L (1.2-4.9) X10*3/uL [place] # (Auto) 0.6 (0.1-1.2) X10*3/uL Eos # (Auto) 0.1 (0.0-0.4) X10*3/uL Baso # (Auto) 0.0 (0.0-0.2) X10*3/uL Abs Immat Gran (auto) 0.01 (0.00-0.03) X10*3/uL Absolute Neuts (auto) 4.7 (2.0-8.3) x10*3/uL Absolute Nucleated RBC 0.000 (0.0-0.012) X10*3/uL Nucleated RBC % (auto) 0.0 (0.0-0.2) /100WBC PT 16.5 H (10.0-13.1) SEC INR 1.4 H (0.9-1.1) Sodium 144 (135-145) mmol/L Potassium 4.8 (3.3-5.1) mmol/L Chloride 112 H (96-108) mmol/L Carbon Dioxide 24 (22-29) mmol/L Anion Gap 13 (12-20) BUN 21 H (9-16) mg/dL Creatinine 0.97 (0.5-1.4) mg/dL Estim Creat Clear Calc 68.0 Estimated GFR > 60 Random Glucose 137 H (60-115) mg/dL Calcium 8.7 (8.4-10.2) mg/dL Magnesium 2.1 (1.6-2.6) mg/dL Total Bilirubin 0.5 (0.0-1.0) mg/dL AST 23 (5-37) U/L ALT 23 (0-40) U/L Alkaline Phosphatase 105 (39-117) U/L Troponin I High Sens (<3.5-35.0) ng/L B-Natriuretic Peptide (<100) pg/mL Total Protein 6.3 L (6.5-8.0) g/dL Albumin 3.8 (3.5-5.0) g/dL COVID-19 (REUBEN) (Negative) COVID-19 Clin Com Influenza Type A (ELYSSA) (Negative) Influenza Type B (ELYSSA) (Negative) Influenza A & B Note 04/02/22 04/02/22 04/02/22 Range/Units 11:33 11:33 11:33 WBC (4.8-10.8) X10*3/uL RBC (4.60-5.80) X10*6/uL Hgb (14.0-18.0) g/dl Hct (42.0-52.0) % MCV (80.0-98.0) fL MCH (27.0-33.0) pg MCHC (31.0-36.0) g/dl RDW (11.0-16.0) % Plt Count (160-400) X10*3/uL MPV (9.4-12.4) fL Immature Gran % (Auto) (0.0-0.4) % Neut % (Auto) (45-73) % Lymph % (Auto) (20-40) % [place] % (Auto) (2-11) % Eos % (Auto) (0-4) % Baso % (Auto) (0-2) % Lymph # (Auto) (1.2-4.9) X10*3/uL [place] # (Auto) (0.1-1.2) X10*3/uL Eos # (Auto) (0.0-0.4) X10*3/uL Baso # (Auto) (0.0-0.2) X10*3/uL Abs Immat Gran (auto) (0.00-0.03) X10*3/uL Absolute Neuts (auto) (2.0-8.3) x10*3/uL Absolute Nucleated RBC (0.0-0.012) X10*3/uL Nucleated RBC % (auto) (0.0-0.2) /100WBC PT (10.0-13.1) SEC INR (0.9-1.1) Sodium (135-145) mmol/L Potassium (3.3-5.1) mmol/L Chloride (96-108) mmol/L Carbon Dioxide (22-29) mmol/L Anion Gap (12-20) BUN (9-16) mg/dL Creatinine (0.5-1.4) mg/dL Estim Creat Clear Calc Estimated GFR Random Glucose (60-115) mg/dL Calcium (8.4-10.2) mg/dL Magnesium (1.6-2.6) mg/dL Total Bilirubin (0.0-1.0) mg/dL AST (5-37) U/L ALT (0-40) U/L Alkaline Phosphatase (39-117) U/L Troponin I High Sens 26.9 (<3.5-35.0) ng/L B-Natriuretic Peptide 367 H (<100) pg/mL Total Protein (6.5-8.0) g/dL Albumin (3.5-5.0) g/dL COVID-19 (REUBEN) (Negative) COVID-19 Clin Com Influenza Type A (ELYSSA) Negative (Negative) Influenza Type B (ELYSSA) Negative (Negative) Influenza A & B Note See Note 04/02/22 Range/Units 11:33 WBC (4.8-10.8) X10*3/uL RBC (4.60-5.80) X10*6/uL Hgb (14.0-18.0) g/dl Hct (42.0-52.0) % MCV (80.0-98.0) fL MCH (27.0-33.0) pg MCHC (31.0-36.0) g/dl RDW (11.0-16.0) % Plt Count (160-400) X10*3/uL MPV (9.4-12.4) fL Immature Gran % (Auto) (0.0-0.4) % Neut % (Auto) (45-73) % Lymph % (Auto) (20-40) % [place] % (Auto) (2-11) % Eos % (Auto) (0-4) % Baso % (Auto) (0-2) % Lymph # (Auto) (1.2-4.9) X10*3/uL [place] # (Auto) (0.1-1.2) X10*3/uL Eos # (Auto) (0.0-0.4) X10*3/uL Baso # (Auto) (0.0-0.2) X10*3/uL Abs Immat Gran (auto) (0.00-0.03) X10*3/uL Absolute Neuts (auto) (2.0-8.3) x10*3/uL Absolute Nucleated RBC (0.0-0.012) X10*3/uL Nucleated RBC % (auto) (0.0-0.2) /100WBC PT (10.0-13.1) SEC INR (0.9-1.1) Sodium (135-145) mmol/L Potassium (3.3-5.1) mmol/L Chloride (96-108) mmol/L Carbon Dioxide (22-29) mmol/L Anion Gap (12-20) BUN (9-16) mg/dL Creatinine (0.5-1.4) mg/dL Estim Creat Clear Calc Estimated GFR Random Glucose (60-115) mg/dL Calcium (8.4-10.2) mg/dL Magnesium (1.6-2.6) mg/dL Total Bilirubin (0.0-1.0) mg/dL AST (5-37) U/L ALT (0-40) U/L Alkaline Phosphatase (39-117) U/L Troponin I High Sens (<3.5-35.0) ng/L B-Natriuretic Peptide (<100) pg/mL Total Protein (6.5-8.0) g/dL Albumin (3.5-5.0) g/dL COVID-19 (REUBEN) Negative (Negative) COVID-19 Clin Com See Note Influenza Type A (ELYSSA) (Negative) Influenza Type B (ELYSSA) (Negative) Influenza A & B Note <AMANDA Garcia - Last Filed: 04/02/22 13:08> Independent Interpretation I performed an independent interpretation of an: EKG <AMANDA Garcia - Last Filed: 04/02/22 13:08> Interpretation: EKG abnormal - HR 33, junctional bradycardia Absence of p-waves Unable to determine SD interval QRS interval normal at 112 MS QTC interval normal at 394 ms <AMANDA Garcia - Last Filed: 04/02/22 13:08> Radiology Impression Discussion of test interpretation with radiology: I have reviewed the radiologist's reading. <AMANDA Garcia - Last Filed: 04/02/22 13:08> External Record Review External record reviewed: Office record, Outpatient record, Prior outpatient labs and Prior outpatient radiology <AMANDA Garcia - Last Filed: 04/02/22 13:08> Prescription Management atropine, however BP stable. no indication <AMANDA Garcia - Last Filed: 04/02/22 13:08> Chronic Conditions Patient?s care impacted by: Hypertension and Other (afib, CAD) <AMANDA Garcia - Last Filed: 04/02/22 13:08> Critical Care Time Critical Care Time Critical Care Time: Yes <AMANDA Garcia - Last Filed: 04/02/22 13:08> Total Critical Care Time: 39 <AMANDA Garcia - Last Filed: 04/02/22 13:08> Attestation: I have personally provided critical care time exclusive of time spent on separately billable procedures. Time includes review of lab data, radiology resu lts, discussion with consultants, and monitoring for potential decompensation. Intervention performed as documented. <AMANDA Garcia - Last Filed: 04/02/22 13:08> Discharge Plan Discharge Clinical Impression: Symptomatic bradycardia <Cata Steel CNP - Last Filed: 04/02/22 11:06> Patient Disposition: Admitted As Inpatient <Cata Steel CNP - Last Filed: 04/02/22 11:06>
[2022-04-02 11:06] VITALS: BP 148/54; PULSE 39; RESP 19; TEMP 36.6; O2SAT 98; BMI 33.0
[2022-04-02 11:39] LABS: MANUAL DIFF FLAG NO
[2022-04-02 11:54] LABS: Basophils Percent Auto 0.3 % (0-2); Eosinophils Absolute Auto 0.1 X10*3/uL (0.0-0.4); Eosinophils Percent Auto 1.2 % (0-4); Hematocrit 38.9 % (42.0-52.0); Hemoglobin 12.7 g/dl (14.0-18.0); Imm Gran Abs Auto 0.01 X10*3/uL (0.00-0.03); Imm Gran Pct Auto 0.2 % (0.0-0.4); Lymphocytes Percent Auto 15.7 % (20-40); Mean Corpuscular HGB Conc 32.6 g/dl (31.0-36.0); Mean Corpuscular Hemoglobin 28.2 pg (27.0-33.0); Mean Corpuscular Volume 86.3 fL (80.0-98.0); Mean Platelet Volume 9.7 fL (9.4-12.4); Monocytes Absolute Auto 0.6 X10*3/uL (0.1-1.2); Monocytes Percent Auto 9.6 % (2-11); Neutrophils Absolute Auto 4.7 x10*3/uL (2.0-8.3); Platelet Count 198 X10*3/uL (160-400); Red Blood Count 4.51 X10*6/uL (4.60-5.80); Red Cell Distribution Width 13.2 % (11.0-16.0); White Blood Count 6.5 X10*3/uL (4.8-10.8)
[2022-04-02] MEDS: 0.9 % Sodium Chloride 500 ML IV (11:54)
[2022-04-02 12:05] LABS: Alanine Aminotransferase 23 U/L (0-40); Albumin Level 3.8 g/dL (3.5-5.0); Alkaline Phosphatase 105 U/L (39-117); Anion Gap 13 (12-20); Aspartate Amino Transferase 23 U/L (5-37); Bilirubin Total 0.5 mg/dL (0.0-1.0); Blood Urea Nitrogen 21 mg/dL (9-16); Calcium 8.7 mg/dL (8.4-10.2); Carbon Dioxide 24 mmol/L (22-29); Chloride 112 mmol/L (96-108); Estimated Glomerular Filt Rate > 60; Glucose Random 137 mg/dL (60-115); Magnesium 2.1 mg/dL (1.6-2.6); Potassium 4.8 mmol/L (3.3-5.1); Sodium 144 mmol/L (135-145); Total Protein 6.3 g/dL (6.5-8.0)
[2022-04-02 12:09] LABS: IDNOW Serial# 9DB6401D; Influenza A Negative (Negative); Influenza B2 Negative (Negative)
[2022-04-02 12:10] LABS: COVID-19 Test Negative (Negative); IDNOW Serial# BCCEAD1C
[2022-04-02 12:11] LABS: B Type Natriuretic Peptide 367 pg/mL (<100); INTERNATIONAL NORM RATIO 1.4 (0.9-1.1); Prothrombin Time 16.5 SEC (10.0-13.1)
[2022-04-02 12:12] LABS: Troponin-I High Sensitivity 26.9 ng/L (<3.5-35.0)
--- NOTE | 2022-04-02 12:55 | PHA.MEDREC ---
Pharmacy Consult ? Medication Reconciliation Pharmacy has completed the medication reconciliation. Patient had list that we reviewed together and completed med rec based on that.
--- NOTE | 2022-04-02 13:51 | PM.IMHP ---
History of Present Illness Date of Service: 04/02/22 Attending physician on admission: Yohan Eddy Chief Complaint: lightheadedness, bradycardia 76 neena old male with history of htn, paroxysmal atrial fibrillation on eliquis, hld, cad, carpal tunnel syndrome, and vertigo presented to the ED earlier today from Dr. Tong's office in cardiology due to symptomatic bradycardia with EKG showing junctional bradycardia.. Pt reports intermittent lightheadedness since yesterday along with fatigue and weakness. States this is different than the vertigo he typically experiences. Noticed symptoms primarily when walking. has felt somewhat short of breath when climbing stairs but otherwise denies sob. No chest pain, focal weakness, paresthesias, visual changes. In the ED, HR 39. BP stable at 148/54. Pacer pads placed for monitoring. Renal function and electrolytes normal. Mild normocytic anemia with H/H 12.7/38.9%. BNP 367. CXR without acute abnormality. EKG in ED showing junctional bradycardia, rate 38. Review of Systems Review of Systems: Yes all other systems are reviewed and are negative [facility] Medical History Acute coronary syndrome CAD (coronary artery disease) CTS (carpal tunnel syndrome) HTN (hypertension) Paroxysmal atrial fibrillation Uncontrolled hypertension Vertigo Family History Brother CAD (coronary artery disease) Surgical History H/O umbilical hernia repair History of cardiac cath Hx of cholecystectomy Social History Household Members: Spouse Housing: House Do you presently have visiting nurse or other home services: No Alcohol intake: never Patient Tobacco Use Status: Former Tobacco user Quit Date: quit 50+ years ago Advance Directives: Yes Advance Directives Information Provided: No Advance Directives on File: No service: Yes Current occupational status: retired Meds Allergies Allergy/AdvReac Type Severity Reaction Status Date / Time No Known Allergies Allergy Mild N/A Verified 04/02/22 11:05 Active Medications: Current Medications Pharmacy Consult (Consult Rx Perform Med Rec) 1 each MISCELLANE ONCE PRN PRN Reason: Consult order Home Medications Medication Instructions Recorded Confirmed Last Taken Type glucosamine-chondroitin 250 mg-200 1 tab PO ONCE 05/22/21 04/02/22 04/02/22 History mg tablet (Osteo Bi-Flex) bisoprolol 10 1 tab PO DAILY 04/02/22 04/02/22 04/02/22 History mg-hydrochlorothiazide 6.25 mg tablet lisinopril 40 mg tablet 40 mg PO DAILY 04/02/22 04/02/22 04/02/22 History Physical Exam Vital Signs and Narrative: Vital Signs: Last Vital Signs Temp 98 F 04/02/22 11:06 Pulse 39 L 04/02/22 11:06 Resp 19 04/02/22 11:06 BP 148/54 H 04/02/22 11:06 Pulse Ox 98 04/02/22 11:06 O2 Del Method 04/02/22 11:06 BMI result Body Mass Index 33.0 Constitutional - Awake and Alert, No apparent distress Eyes - PERRLA, EOMI Cardiovascular - S1S2, irregular rhythm, bradycardia, No edema Chest- pacer pads in place Respiratory - Normal lung expansion, Normal respiratory effort, No respiratory distress, CTA bilaterally Gastrointestinal - NT / ND; +BS; No rebound or guarding - No CVA tenderness Extremities - no calf tenderness bilaterally, no swelling Skin - Warm/Dry Neurological - Alert & oriented x3, CN II-XII in tact, 5/5 strength BUE and BLE Psychological - Appropriate affect Results Labs 04/02/22 11:33 04/02/22 11:33 Labs: Laboratory Results - last 24 hr 04/02/22 04/02/22 04/02/22 11:33 11:33 11:33 MCV 86.3 MCH 28.2 MCHC 32.6 RDW 13.2 Plt Count 198 MPV 9.7 Immature Gran % (Auto) 0.2 Neut % (Auto) 73.0 Lymph % (Auto) 15.7 L [place] % (Auto) 9.6 Eos % (Auto) 1.2 Baso % (Auto) 0.3 Lymph # (Auto) 1.0 L [place] # (Auto) 0.6 Eos # (Auto) 0.1 Baso # (Auto) 0.0 Abs Immat Gran (auto) 0.01 Absolute Neuts (auto) 4.7 Absolute Nucleated RBC 0.000 Nucleated RBC % (auto) 0.0 PT 16.5 H INR 1.4 H Anion Gap 13 Estim Creat Clear Calc 68.0 Estimated GFR > 60 Random Glucose 137 H Calcium 8.7 Magnesium 2.1 Total Bilirubin 0.5 AST 23 ALT 23 Alkaline Phosphatase 105 Troponin I High Sens B-Natriuretic Peptide Total Protein 6.3 L Albumin 3.8 COVID-19 ([facility]) COVID-19 Clin Com Influenza Type A ([facility]SSA) Influenza Type B (ELYSSA) Influenza A & B Note 04/02/22 04/02/22 04/02/22 11:33 11:33 11:33 MCV MCH MCHC RDW Plt Count MPV Immature Gran % (Auto) Neut % (Auto) Lymph % (Auto) [place] % (Auto) Eos % (Auto) Baso % (Auto) Lymph # (Auto) [place] # (Auto) Eos # (Auto) Baso # (Auto) Abs Immat Gran (auto) Absolute Neuts (auto) Absolute Nucleated RBC Nucleated RBC % (auto) PT INR Anion Gap Estim Creat Clear Calc Estimated GFR Random Glucose Calcium Magnesium Total Bilirubin AST ALT Alkaline Phosphatase Troponin I High Sens 26.9 B-Natriuretic Peptide 367 H Total Protein Albumin COVID-19 (REUBEN) COVID-19 Clin Com Influenza Type A (ELYSSA) Negative Influenza Type B (ELYSSA) Negative Influenza A & B Note See Note 04/02/22 11:33 MCV MCH MCHC RDW Plt Count MPV Immature Gran % (Auto) Neut % (Auto) Lymph % (Auto) [place] % (Auto) Eos % (Auto) Baso % (Auto) Lymph # (Auto) [place] # (Auto) Eos # (Auto) Baso # (Auto) Abs Immat Gran (auto) Absolute Neuts (auto) Absolute Nucleated RBC Nucleated RBC % (auto) PT INR Anion Gap Estim Creat Clear Calc Estimated GFR Random Glucose Calcium Magnesium Total Bilirubin AST ALT Alkaline Phosphatase Troponin I High Sens B-Natriuretic Peptide Total Protein Albumin COVID-19 (REUBEN) Negative COVID-19 Clin Com See Note Influenza Type A (ELYSSA) Influenza Type B (ELYSSA) Influenza A & B Note Imaging Radiologist's Impressions: Impressions Chest X-Ray 04/02/22 12:00 IMPRESSION: No acute pulmonary findings Assessment and Plan (1) Symptomatic bradycardia: Status: Acute Plan 76 year old male with history of htn, paroxysmal atrial fibrillation on eliquis, hld, cad, carpal tunnel syndrome, and vertigo admitted for symptomatic bradycardia. #juntional bradycardia -symptomatic with lightheadedness, weakness, occassional sob -EKG showing junctional bradycardia -Discussed with Dr. Paiz. Dr. Hong to pace patient this afternoon -Plan for pacemaker tomorrow. NPO after midnight -Hold eliquis pre-op per cardiology -Hold BB -Admit to telemetry -Appreciate cardiology input #Paroxysmal atrial fibrillation -as above -Resume eliquis post-op -appreciate cardiology input #HTN- reasonably controlled -continue amlodipine, lisinopril -hold bb, hctz #CAD -no anginal chest pain -continue statin, hold bb and eliquis DVT prophylaxis- hold eliquis. SCPs Full code Pt requires inpt stay at least 2 midnights for management junctional symptomatic bradycardia requiring synchronized pacing and pacemaker placement with close cardiac monitoring and expert consultation. Time Spent With Patient Time: Total time managing care of this patient today ____ minutes. Quality Stroke Does the patient have a stroke diagnosis?: No VTE Prior VTE?: No VTE Risk Level:: Medical - moderate - high VTE Device Contraindication: N/A - Device Ordered VTE Drug Contraindication: Treatment Not Indicated
[2022-04-02 14:17] VITALS: BP 147/70; PULSE 52; RESP 10; TEMP 37; O2SAT 96
--- NOTE | 2022-04-02 14:21 | PM.CNCAR ---
History of Present Illness History of Present Illness Date of Service: 04/02/22 Requesting physician: Marlee Caro Chief complaint: Symptomatic Bradycardia Narrative: 76-year-old gentleman with known history of paroxysmal atrial fibrillation for which he has been on Eliquis and bisoprolol, coronary disease, hypertension hyperlipidemia who presented to cardiology clinic with dizziness and lightheadedness. He was noticed to be bradycardic in 40s with junctional rhythm. He was sent to the emergency department. He has been in and out of junctional rhythm and sinus bradycardia currently. He said he was experiencing dizziness and fatigue for the last few days. No syncope. No dyspnea or chest discomfort. In bed when he was asked to exercise by straight leg raising his heart rate did not increase and stayed in 40s. Bisoprolol has been held. [facility]LY [facility] Past Medical History Medical History Acute coronary syndrome CAD (coronary artery disease) CTS (carpal tunnel syndrome) HTN (hypertension) Paroxysmal atrial fibrillation Uncontrolled hypertension Vertigo Family History Family History Brother CAD (coronary artery disease) Surgical History Surgical History H/O umbilical hernia repair History of cardiac cath Hx of cholecystectomy Social History Social History Household Members: Spouse Housing: House Do you presently have visiting nurse or other home services: No Alcohol intake: never Patient Tobacco Use Status: Former Tobacco user Quit Date: quit 50+ years ago Advance Directives: Yes Advance Directives Information Provided: No Advance Directives on File: No service: Yes Current occupational status: retired Meds Allergies Allergy/AdvReac Type Severity Reaction Status Date / Time No Known Allergies Allergy Mild N/A Verified 04/02/22 11:05 Active Medications: Current Medications Acetaminophen (Acetaminophen 325 Mg Tablet) 650 mg PO Q6H PRN PRN Reason: Pain, Mild (Pain Scale 1-3) Amlodipine Besylate (Amlodipine Besylate 5 Mg Tablet) 5 mg PO DAILY [facility]; Protocol Atorvastatin Calcium (Atorvastatin Calcium 80 Mg Tablet) 80 mg PO DAILY [facility] Docusate Sodium (Docusate Sodium 100 Mg Capsule) 100 mg PO DAILY PRN PRN Reason: Constipation Lisinopril (Lisinopril 40 Mg Tablet) 40 mg PO DAILY REPLACED BY [facility]; Protocol Non-Formulary Medication (Glucosamine-Chondroitin [Osteo Bi-Flex]) 1 tab PO ONCE [facility] Ondansetron HCl (Ondansetron Hcl 4 Mg/2 Ml Vial) 4 mg IVPUSH Q8H PRN PRN Reason: Nausea and Vomiting Pharmacy Consult (Consult Rx Perform Med Rec) 1 each MISCELLANE ONCE PRN PRN Reason: Consult order Sodium Chloride (0.9 % Sodium Chloride Flush 3 Ml Syringe) 3 ml IVFLUSH QSHIFT REPLACED BY [facility] Home Medications Medication Instructions Recorded Confirmed Last Taken Type glucosamine-chondroitin 250 mg-200 1 tab PO ONCE 05/22/21 04/02/22 04/02/22 History mg tablet (Osteo Bi-Flex) bisoprolol 10 1 tab PO DAILY 04/02/22 04/02/22 04/02/22 History mg-hydrochlorothiazide 6.25 mg tablet lisinopril 40 mg tablet 40 mg PO DAILY 04/02/22 04/02/22 04/02/22 History Physical Exam Vital Signs: Vital Signs: Last Vital Signs Temp 98.6 F 04/02/22 14:17 Pulse 52 04/02/22 14:17 Resp 10 L 04/02/22 14:17 BP 147/70 H 04/02/22 14:17 Pulse Ox 96 04/02/22 14:17 O2 Del Method 04/02/22 14:17 BMI result Body Mass Index 33.0 GENERAL APPEARANCE: in no acute distress, pleasant. NECK: no carotid bruit, no jugular venous distention. SKIN: no suspicious lesions, warm and dry. HEART: no murmurs, regular rate and rhythm. Bradycardic. LUNGS: clear to auscultation bilaterally. ABDOMEN: soft, nontender. EXTREMITIES: no edema. PERIPHERAL PULSES: equal. NEUROLOGIC: No gross deficits, AAO X 3 Objective Labs and Meds 04/02/22 11:33 04/02/22 11:33 Lab results: Laboratory Results - last 24 hr 04/02/22 04/02/22 04/02/22 11:33 11:33 11:33 WBC 6.5 RBC 4.51 L Hgb 12.7 L Hct 38.9 L MCV 86.3 MCH 28.2 MCHC 32.6 RDW 13.2 Plt Count 198 MPV 9.7 Immature Gran % (Auto) 0.2 Neut % (Auto) 73.0 Lymph % (Auto) 15.7 L [place] % (Auto) 9.6 Eos % (Auto) 1.2 Baso % (Auto) 0.3 Lymph # (Auto) 1.0 L [place] # (Auto) 0.6 Eos # (Auto) 0.1 Baso # (Auto) 0.0 Abs Immat Gran (auto) 0.01 Absolute Neuts (auto) 4.7 Absolute Nucleated RBC 0.000 Nucleated RBC % (auto) 0.0 PT 16.5 H INR 1.4 H Sodium 144 Potassium 4.8 Chloride 112 H Carbon Dioxide 24 Anion Gap 13 BUN 21 H Creatinine 0.97 Estim Creat Clear Calc 68.0 Estimated GFR > 60 Random Glucose 137 H Calcium 8.7 Magnesium 2.1 Total Bilirubin 0.5 AST 23 ALT 23 Alkaline Phosphatase 105 Troponin I High Sens B-Natriuretic Peptide Total Protein 6.3 L Albumin 3.8 COVID-19 ([facility]) COVID-19 Clin Com Influenza Type A (ELYSSA) Influenza Type B (ELYSSA) Influenza A & B Note 04/02/22 04/02/22 04/02/22 11:33 11:33 11:33 WBC RBC Hgb Hct MCV MCH MCHC RDW Plt Count MPV Immature Gran % (Auto) Neut % (Auto) Lymph % (Auto) [place] % (Auto) Eos % (Auto) Baso % (Auto) Lymph # (Auto) [place] # (Auto) Eos # (Auto) Baso # (Auto) Abs Immat Gran (auto) Absolute Neuts (auto) Absolute Nucleated RBC Nucleated RBC % (auto) PT INR Sodium Potassium Chloride Carbon Dioxide Anion Gap BUN Creatinine Estim Creat Clear Calc Estimated GFR Random Glucose Calcium Magnesium Total Bilirubin AST ALT Alkaline Phosphatase Troponin I High Sens 26.9 B-Natriuretic Peptide 367 H Total Protein Albumin COVID-19 ([facility]UBEN) COVID-19 Clin Com Influenza Type A (ELYSSA) Negative Influenza Type B (ELYSSA) Negative Influenza A & B Note See Note 04/02/22 11:33 WBC RBC Hgb Hct MCV MCH MCHC RDW Plt Count MPV Immature Gran % (Auto) Neut % (Auto) Lymph % (Auto) [place] % (Auto) Eos % (Auto) Baso % (Auto) Lymph # (Auto) [place] # (Auto) Eos # (Auto) Baso # (Auto) Abs Immat Gran (auto) Absolute Neuts (auto) Absolute Nucleated RBC Nucleated RBC % (auto) PT INR Sodium Potassium Chloride Carbon Dioxide Anion Gap BUN Creatinine Estim Creat Clear Calc Estimated GFR Random Glucose Calcium Magnesium Total Bilirubin AST ALT Alkaline Phosphatase Troponin I High Sens B-Natriuretic Peptide Total Protein Albumin COVID-19 ([facility]UBEN) Negative COVID-19 Clin Com See Note Influenza Type A (ELYSSA) Influenza Type B (ELYSSA) Influenza A & B Note Imaging Radiologist's impression: Impressions Chest X-Ray 04/02/22 12:00 IMPRESSION: No acute pulmonary findings Assessment and Plan (1) Symptomatic bradycardia: Status: Acute Plan Pleasant 76-year-old gentleman who has symptomatic bradycardia. He was on bisoprolol for history of paroxysmal atrial fibrillation. This has been held. We will monitor him closely on telemetry. He clearly had symptomatic bradycardia and heart rate did not change much with exercise also. I think his symptoms can be due to conduction system disease and chronotropic incompetence. Also for his at history of paroxysmal atrial fibrillation he will require some medications and also carries a diagnosis of coronary disease. I had a detailed discussion with the patient that he will require permanent pacemaker to safely return home. Amlodipine can be continued as blood pressure is elevated. He can also receive his lisinopril. Hold the bisoprolol as you are. Please also or the Eliquis. Keep NPO after midnight for potential pacemaker tomorrow afternoon. Thank you for allowing me to participate in the care of your patient. Please feel free to contact me if you have any questions. Time Spent With Patient Time: Total time managing care of this patient today ____ minutes. Procedures Date of Service Date of Service: 04/02/22
--- NOTE | 2022-04-02 14:58 | W.PM.CCCN ---
History of Present Illness Data of Consult Service Date: 04/02/22 Requesting physician: Arthur Paiz Primary Care Provider: Faraz Angeles MD [facility] Reason for consult: symptomatic bradycardia 76-year-old male who just recently noted palpitations which was paroxysmal atrial fibrillation was medicated but became profoundly bradycardic on small doses of medicine he noted that he had very poor significant premature fatigue forcing him to stop multiple times to complete a task and presented here in a junctional bradycardia with rates in the 30s he remained in junctional rhythm with rate varying between 30s and and a proximally 50 was stable no syncopal episode no pauses and my bedside echo demonstrated some mild concentric left ventricular hypertrophy normal systolic function definitely elevated filling pressures diminished diastolic reserve Review of Systems Review of Systems: Yes all other systems are reviewed and are negative [facility] Past Medical History Medical History Acute coronary syndrome CAD (coronary artery disease) CTS (carpal tunnel syndrome) HTN (hypertension) Paroxysmal atrial fibrillation Uncontrolled hypertension Vertigo Family History Family History Brother CAD (coronary artery disease) Surgical History Surgical History H/O umbilical hernia repair History of cardiac cath Hx of cholecystectomy Social History Social History Household Members: Spouse Housing: House Do you presently have visiting nurse or other home services: No Alcohol intake: never Patient Tobacco Use Status: Former Tobacco user Quit Date: 1971 Tobacco use type: Cigarette Cigarette Packs Per Day: 1 Cigarettes Per Day: 20.0 Years Smoked: 10 e-Cigarette/Vaping Use: Never Used Second Hand Smoke Exposure: No Substance Use Type: Caffiene Advance Directives Date on File: 04/02/22 service: Yes Current occupational status: retired Meds Allergies Allergy/AdvReac Type Severity Reaction Status Date / Time No Known Allergies Allergy Mild N/A Verified 04/02/22 11:05 Active Medications: Current Medications Acetaminophen (Acetaminophen 325 Mg Tablet) 650 mg PO Q6H PRN PRN Reason: Pain, Mild (Pain Scale 1-3) Amlodipine Besylate (Amlodipine Besylate 5 Mg Tablet) 5 mg PO DAILY [facility]; Protocol Atorvastatin Calcium (Atorvastatin Calcium 80 Mg Tablet) 80 mg PO DAILY [facility] Docusate Sodium (Docusate Sodium 100 Mg Capsule) 100 mg PO DAILY PRN PRN Reason: Constipation Lisinopril (Lisinopril 40 Mg Tablet) 40 mg PO DAILY [facility]; Protocol Non-Formulary Medication (Glucosamine-Chondroitin [Osteo Bi-Flex]) 1 tab PO ONCE [facility] Ondansetron HCl (Ondansetron Hcl 4 Mg/2 Ml Vial) 4 mg IVPUSH Q8H PRN PRN Reason: Nausea and Vomiting Pharmacy Consult (Consult Rx Perform Med Rec) 1 each MISCELLANE ONCE PRN PRN Reason: Consult order Sodium Chloride (0.9 % Sodium Chloride Flush 3 Ml Syringe) 3 ml IVFLUSH QSHIFT [facility] Home Medications Medication Instructions Recorded Confirmed Last Taken Type glucosamine-chondroitin 250 mg-200 1 tab PO ONCE 05/22/21 04/02/22 04/02/22 History mg tablet (Osteo Bi-Flex) bisoprolol 10 1 tab PO DAILY 04/02/22 04/02/22 04/02/22 History mg-hydrochlorothiazide 6.25 mg tablet lisinopril 40 mg tablet 40 mg PO DAILY 04/02/22 04/02/22 04/02/22 History Physical Exam Vital Signs: Vital Signs: Last Vital Signs Temp 98.6 F 04/02/22 14:17 Pulse 52 04/02/22 14:17 Resp 10 L 04/02/22 14:17 BP 147/70 H 04/02/22 14:17 Pulse Ox 96 04/02/22 14:17 O2 Del Method 04/02/22 14:17 BMI result Body Mass Index 33.0 awake alert neurologically intact good bilateral carotid upstrokes no neck vein distension no gallops or murmurs lungs were clear with no evidence issues sounds abdomen benign no again a megaly per if early warm well perfused good peripheral pulses no significant edema Results Labs 04/02/22 11:33 04/02/22 11:33 Labs: Short CBC 04/02/22 Range/Units 11:33 WBC 6.5 (4.8-10.8) X10*3/uL Hgb 12.7 L (14.0-18.0) g/dl Hct 38.9 L (42.0-52.0) % Plt Count 198 (160-400) X10*3/uL BMP 04/02/22 11:33 Sodium 144 Potassium 4.8 Chloride 112 H Carbon Dioxide 24 BUN 21 H Creatinine 0.97 Calcium 8.7 Liver Function 04/02/22 Range/Units 11:33 Total Bilirubin 0.5 (0.0-1.0) mg/dL AST 23 (5-37) U/L ALT 23 (0-40) U/L Alkaline Phosphatase 105 (39-117) U/L Albumin 3.8 (3.5-5.0) g/dL Assessment and Plan (1) Symptomatic bradycardia: Status: Acute (2) CAD (coronary artery disease): Status: Acute (3) Hyperlipidemia: Status: Acute (4) HTN (hypertension): Status: Acute (5) Coronary artery disease: Status: Acute (6) Elevated troponin: Status: Acute (7) Paroxysmal atrial fibrillation: Status: Acute (8) Diastolic CHF with preserved left ventricular function, NYHA class 2: Status: Acute Plan plan is to proceed with permanent dual-chamber pacemaker so we could then medicate with ampullary to prevent AFib once done we will restore the anticoagulation Time Spent With Patient Time: Total time managing care of this patient today 60____ minutes.
[2022-04-02 15:35] LABS: Troponin-I High Sensitivity 25.9 ng/L (<3.5-35.0)
[2022-04-02 16:00] VITALS: BP 156/79; PULSE 51; RESP 16; TEMP 36.7; O2SAT 98
--- NOTE | 2022-04-02 16:00 | MHC.EDTECH ---
this pct assumed care of pt at 1500 ,1600 vitals sign taken ,pt watching television ,300 ml urine empty .
[2022-04-02] MEDS: Furosemide 20 MG/2 ML VIAL IVPUSH (17:33)
[2022-04-02] MEDS: 0.9 % Sodium Chloride Flush 3 ML SYRINGE IVFLUSH (17:34)
[2022-04-02 19:13] VITALS: BP 162/70; PULSE 54; RESP 16; TEMP 37; O2SAT 95
[2022-04-02 20:45] VITALS: BP 152/70; PULSE 53; RESP 17; TEMP 37.1; O2SAT 93
[2022-04-02 23:49] VITALS: BP 141/66; PULSE 47; RESP 14; TEMP 36.9; O2SAT 92
[2022-04-03] VITALS (12 sets, daily range): BP systolic 139–169; BP diastolic 47–73; PULSE 53–60; RESP 14–20; TEMP 36.6–37.3; O2SAT 93–99
[2022-04-03] MEDS: 0.9 % Sodium Chloride Flush 3 ML SYRINGE IVFLUSH ×3 (00:53→17:03)
[2022-04-03 07:10] LABS: MANUAL DIFF FLAG NO
[2022-04-03 07:13] LABS: Basophils Percent Auto 0.5 % (0-2); Eosinophils Absolute Auto 0.1 X10*3/uL (0.0-0.4); Eosinophils Percent Auto 1.4 % (0-4); Hematocrit 40.4 % (42.0-52.0); Hemoglobin 13.3 g/dl (14.0-18.0); Imm Gran Abs Auto 0.01 X10*3/uL (0.00-0.03); Imm Gran Pct Auto 0.2 % (0.0-0.4); Lymphocytes Absolute Auto 1.2 X10*3/uL (1.2-4.9); Lymphocytes Percent Auto 20.5 % (20-40); Mean Corpuscular HGB Conc 32.9 g/dl (31.0-36.0); Mean Corpuscular Hemoglobin 28.2 pg (27.0-33.0); Mean Corpuscular Volume 85.6 fL (80.0-98.0); Mean Platelet Volume 9.5 fL (9.4-12.4); Monocytes Absolute Auto 0.5 X10*3/uL (0.1-1.2); Monocytes Percent Auto 9.2 % (2-11); Neutrophils Percent Auto 68.2 % (45-73); Platelet Count 197 X10*3/uL (160-400); Red Blood Count 4.72 X10*6/uL (4.60-5.80); Red Cell Distribution Width 13.1 % (11.0-16.0); White Blood Count 5.9 X10*3/uL (4.8-10.8)
--- NOTE | 2022-04-03 07:22 | P.PNIM_ITS ---
Subjective Subjective Date of Service: 04/03/22 Interval History: f/u on symptoamtic junctional bradycardia in setting of afib interval history: for pace maker today by Dr. Martinez, in sinus lino in 40s overnight Physical Exam Vital Signs: Vital Signs: Last Vital Signs Temp 99.2 F 04/03/22 07:13 Pulse 53 04/03/22 07:13 Resp 20 04/03/22 07:13 BP 153/73 H 04/03/22 07:13 Pulse Ox 93 04/03/22 07:13 O2 Del Method 04/03/22 07:13 BMI result Body Mass Index 33.0 Const: Other: General: AO X 3, no acute distress Resp: CTA bilateral CVS: S1,S2,RRR GI: +BS, NT, no distention Skin: No rash Neuro: motor grossly intact Psych: appropriate affect Objective Data Active Medications Acetaminophen (Acetaminophen 325 Mg Tablet) 650 mg PO Q6H PRN PRN Reason: Pain, Mild (Pain Scale 1-3) Amlodipine Besylate (Amlodipine Besylate 5 Mg Tablet) 5 mg PO DAILY [facility]; Protocol Last Admin: 04/02/22 17:34 Dose: Not Given Documented By: RASHID Non-Admin Reason: Previously Administered Atorvastatin Calcium (Atorvastatin Calcium 80 Mg Tablet) 80 mg PO DAILY [facility] Docusate Sodium (Docusate Sodium 100 Mg Capsule) 100 mg PO DAILY PRN PRN Reason: Constipation Lisinopril (Lisinopril 40 Mg Tablet) 40 mg PO DAILY [facility]; Protocol Pharmacy Consult (Consult Rx Perform Med Rec) 1 each MISCELLANE ONCE PRN PRN Reason: Consult order Sodium Chloride (0.9 % Sodium Chloride Flush 3 Ml Syringe) 3 ml IVFLUSH QSHIFT [facility] Last Admin: 04/03/22 00:53 Dose: 3 ml Documented By: PATRICK Labs 04/03/22 06:50 04/02/22 11:33 Labs: Laboratory Results - last 24 hr 04/02/22 04/02/22 04/02/22 11:33 11:33 11:33 MCV 86.3 MCH 28.2 MCHC 32.6 RDW 13.2 Plt Count 198 MPV 9.7 Immature Gran % (Auto) 0.2 Neut % (Auto) 73.0 Lymph % (Auto) 15.7 L [place] % (Auto) 9.6 Eos % (Auto) 1.2 Baso % (Auto) 0.3 Lymph # (Auto) 1.0 L [place] # (Auto) 0.6 Eos # (Auto) 0.1 Baso # (Auto) 0.0 Abs Immat Gran (auto) 0.01 Absolute Neuts (auto) 4.7 Absolute Nucleated RBC 0.000 Nucleated RBC % (auto) 0.0 PT 16.5 H INR 1.4 H Anion Gap 13 Estim Creat Clear Calc 68.0 Estimated GFR > 60 Random Glucose 137 H Calcium 8.7 Magnesium 2.1 Total Bilirubin 0.5 AST 23 ALT 23 Alkaline Phosphatase 105 Troponin I High Sens B-Natriuretic Peptide Total Protein 6.3 L Albumin 3.8 COVID-19 ([facility]) COVID-19 Clin Com Influenza Type A (ELYSSA) Influenza Type B (ELYSSA) Influenza A & B Note 04/02/22 04/02/22 04/02/22 11:33 11:33 11:33 MCV MCH MCHC RDW Plt Count MPV Immature Gran % (Auto) Neut % (Auto) Lymph % (Auto) [place] % (Auto) Eos % (Auto) Baso % (Auto) Lymph # (Auto) [place] # (Auto) Eos # (Auto) Baso # (Auto) Abs Immat Gran (auto) Absolute Neuts (auto) Absolute Nucleated RBC Nucleated RBC % (auto) PT INR Anion Gap Estim Creat Clear Calc Estimated GFR Random Glucose Calcium Magnesium Total Bilirubin AST ALT Alkaline Phosphatase Troponin I High Sens 26.9 B-Natriuretic Peptide 367 H Total Protein Albumin COVID-19 (REUBEN) COVID-19 Clin Com Influenza Type A (ELYSSA) Negative Influenza Type B (ELYSSA) Negative Influenza A & B Note See Note 04/02/22 04/02/22 04/03/22 11:33 14:55 06:50 MCV 85.6 MCH 28.2 MCHC 32.9 RDW 13.1 Plt Count 197 MPV 9.5 Immature Gran % (Auto) 0.2 Neut % (Auto) 68.2 Lymph % (Auto) 20.5 [place] % (Auto) 9.2 Eos % (Auto) 1.4 Baso % (Auto) 0.5 Lymph # (Auto) 1.2 [place] # (Auto) 0.5 Eos # (Auto) 0.1 Baso # (Auto) 0.0 Abs Immat Gran (auto) 0.01 Absolute Neuts (auto) 4.0 Absolute Nucleated RBC 0.000 Nucleated RBC % (auto) 0.0 PT INR Anion Gap Estim Creat Clear Calc Estimated GFR Random Glucose Calcium Magnesium Total Bilirubin AST ALT Alkaline Phosphatase Troponin I High Sens 25.9 B-Natriuretic Peptide Total Protein Albumin COVID-19 (REUBEN) Negative COVID-19 Clin Com See Note Influenza Type A (ELYSSA) Influenza Type B (ELYSSA) Influenza A & B Note Assessment and Plan (1) Symptomatic bradycardia: Status: Acute Plan 76 year old male with history of htn, paroxysmal atrial fibrillation on eliquis, hld, cad, carpal tunnel syndrome, and vertigo admitted for symptomatic bradycardia. #juntional bradycardia -symptomatic with lightheadedness, weakness, occassional sob -For pacemaker today #Paroxysmal atrial fibrillation/SSS -hold BB -resume eliquis after pacer #HTN- reasonably controlled -continue amlodipine, lisinopril, hctz -hold BB #CAD -no anginal chest pain -continue statin, hold bb and eliquis DVT prophylaxis- hold eliquis. SCPs Need for inaptient: symptomatic bradycardia/SSS--to have pacemaker today Time Spent With Patient Time: Total time managing care of this patient today ____ minutes. Quality Stroke Does the patient have a stroke diagnosis?: No VTE Prior VTE?: No VTE Risk Level:: Medical - moderate - high VTE Device Contraindication: N/A - Device Ordered VTE Drug Contraindication: Treatment Not Indicated
[2022-04-03 07:25] LABS: Anion Gap 14 (12-20); Blood Urea Nitrogen 16 mg/dL (9-16); Calcium 8.9 mg/dL (8.4-10.2); Carbon Dioxide 26 mmol/L (22-29); Chloride 109 mmol/L (96-108); Creatinine Clr Calc Pharmacy 71.7; Estimated Glomerular Filt Rate > 60; Glucose Random 105 mg/dL (60-115); Potassium 4.5 mmol/L (3.3-5.1); Sodium 144 mmol/L (135-145)
[2022-04-03 07:31] LABS: INTERNATIONAL NORM RATIO 1.3 (0.9-1.1); Prothrombin Time 14.7 SEC (10.0-13.1)
--- NOTE | 2022-04-03 08:45 | MHC.CM.PN ---
CM met with Patient at bedside and addressed IMM with him, providing him with the original and placing a copy on the chart. Patient lives in a house with his and he required no services nor DME ENGINE SPECIALIST. Home/self care is the goal and CM has initiated and will follow for dc planning. Patient has received Pfizer/Covid vax x5 and his PCP is Dr. Faraz Angeles.
--- NOTE | 2022-04-03 12:39 | P.CONAN_ITS ---
[facility] Active Problems Active Problems: All Active Problems (Updated 04/02/22 @ 12:33 by AMANDA Garcia) Symptomatic bradycardia (Acute) CAD (coronary artery disease) (Acute) Hyperlipidemia (Acute) HTN (hypertension) (Acute) Coronary artery disease (Acute) Elevated troponin (Acute) Paroxysmal atrial fibrillation (Acute) Past Medical History Medical History Acute coronary syndrome CAD (coronary artery disease) CTS (carpal tunnel syndrome) HTN (hypertension) Paroxysmal atrial fibrillation Uncontrolled hypertension Vertigo Family History Family History Brother CAD (coronary artery disease) Surgical History Surgical History H/O umbilical hernia repair History of cardiac cath Hx of cholecystectomy History of Problems with Anesthesia: No Social History Social History Household Members: Spouse Housing: House Do you presently have visiting nurse or other home services: No Alcohol intake: never Patient Tobacco Use Status: Former Tobacco user Quit Date: 1971 Tobacco use type: Cigarette Cigarette Packs Per Day: 1 Cigarettes Per Day: 20.0 Years Smoked: 10 e-Cigarette/Vaping Use: Never Used Second Hand Smoke Exposure: No Substance Use Type: Caffiene Advance Directives Date on File: 04/02/22 service: Yes Current occupational status: retired [employer] Allergies Allergy/AdvReac Type Severity Reaction Status Date / Time No Known Allergies Allergy Mild N/A Verified 04/02/22 11:05 Active Medications: Current Medications Acetaminophen (Acetaminophen 325 Mg Tablet) 650 mg PO Q6H PRN PRN Reason: Pain, Mild (Pain Scale 1-3) Amlodipine Besylate (Amlodipine Besylate 5 Mg Tablet) 5 mg PO DAILY [facility]; Protocol Last Admin: 04/02/22 17:34 Dose: Not Given Atorvastatin Calcium (Atorvastatin Calcium 80 Mg Tablet) 80 mg PO DAILY [facility] Last Admin: 04/03/22 10:11 Dose: Not Given Docusate Sodium (Docusate Sodium 100 Mg Capsule) 100 mg PO DAILY PRN PRN Reason: Constipation Lisinopril (Lisinopril 40 Mg Tablet) 40 mg PO DAILY [facility]; Protocol Last Admin: 04/03/22 10:12 Dose: Not Given Pharmacy Consult (Consult Rx Perform Med Rec) 1 each MISCELLANE ONCE PRN PRN Reason: Consult order Sodium Chloride (0.9 % Sodium Chloride Flush 3 Ml Syringe) [facility] Last Admin: 04/03/22 10:29 Dose: 3 ml Home Medications Medication Instructions Recorded Confirmed Last Taken Type glucosamine-chondroitin 250 mg-200 1 tab PO ONCE 05/22/21 04/02/22 04/02/22 History mg tablet (Osteo Bi-Flex) bisoprolol 10 1 tab PO DAILY 04/02/22 04/02/22 04/02/22 History mg-hydrochlorothiazide 6.25 mg tablet lisinopril 40 mg tablet 40 mg PO DAILY 04/02/22 04/02/22 04/02/22 History Exam Exam Date and Time: April 03, 2022 1239 Height,Weight and Vital Signs: Height 5 ft 6 in Weight 92.986 kg Last Vital Signs Temp 98.2 F 04/03/22 11:14 Pulse 53 04/03/22 11:14 Resp 20 04/03/22 11:14 BP 156/71 H 04/03/22 11:14 Pulse Ox 95 04/03/22 11:14 O2 Del Method 04/03/22 11:14 Pertinent Lab Results Pertinent Lab Results: Laboratory Tests 04/02/22 04/02/22 04/02/22 11:33 11:33 11:33 WBC 6.5 RBC 4.51 L Hgb 12.7 L Hct 38.9 L MCV 86.3 MCH 28.2 MCHC 32.6 RDW 13.2 Plt Count 198 MPV 9.7 Immature Gran % (Auto) 0.2 Neut % (Auto) 73.0 Lymph % (Auto) 15.7 L [place] % (Auto) 9.6 Eos % (Auto) 1.2 Baso % (Auto) 0.3 Lymph # (Auto) 1.0 L [place] # (Auto) 0.6 Eos # (Auto) 0.1 Baso # (Auto) 0.0 Abs Immat Gran (auto) 0.01 Absolute Neuts (auto) 4.7 Absolute Nucleated RBC 0.000 Nucleated RBC % (auto) 0.0 PT 16.5 H INR 1.4 H APTT Sodium 144 Potassium 4.8 Chloride 112 H Carbon Dioxide 24 Anion Gap 13 BUN 21 H Creatinine 0.97 Estim Creat Clear Calc 68.0 Estimated GFR > 60 Random Glucose 137 H Calcium 8.7 Magnesium 2.1 Total Bilirubin 0.5 AST 23 ALT 23 Alkaline Phosphatase 105 Troponin I High Sens B-Natriuretic Peptide Total Protein 6.3 L Albumin 3.8 COVID-19 ([facility]) COVID-19 Clin Com Influenza Type A (ELYSSA) Influenza Type B (ELYSSA) Influenza A & B Note 04/02/22 04/02/22 04/02/22 11:33 11:33 11:33 WBC RBC Hgb Hct MCV MCH MCHC RDW Plt Count MPV Immature Gran % (Auto) Neut % (Auto) Lymph % (Auto) [place] % (Auto) Eos % (Auto) Baso % (Auto) Lymph # (Auto) [place] # (Auto) Eos # (Auto) Baso # (Auto) Abs Immat Gran (auto) Absolute Neuts (auto) Absolute Nucleated RBC Nucleated RBC % (auto) PT INR APTT Sodium Potassium Chloride Carbon Dioxide Anion Gap BUN Creatinine Estim Creat Clear Calc Estimated GFR Random Glucose Calcium Magnesium Total Bilirubin AST ALT Alkaline Phosphatase Troponin I High Sens 26.9 B-Natriuretic Peptide 367 H Total Protein Albumin COVID-19 (REUBEN) COVID-19 Clin Com Influenza Type A (ELYSSA) Negative Influenza Type B (ELYSSA) Negative Influenza A & B Note See Note 04/02/22 04/02/22 04/03/22 11:33 14:55 06:50 WBC 5.9 RBC 4.72 Hgb 13.3 L Hct 40.4 L MCV 85.6 MCH 28.2 MCHC 32.9 RDW 13.1 Plt Count 197 MPV 9.5 Immature Gran % (Auto) 0.2 Neut % (Auto) 68.2 Lymph % (Auto) 20.5 [place] % (Auto) 9.2 Eos % (Auto) 1.4 Baso % (Auto) 0.5 Lymph # (Auto) 1.2 [place] # (Auto) 0.5 Eos # (Auto) 0.1 Baso # (Auto) 0.0 Abs Immat Gran (auto) 0.01 Absolute Neuts (auto) 4.0 Absolute Nucleated RBC 0.000 Nucleated RBC % (auto) 0.0 PT INR APTT Sodium Potassium Chloride Carbon Dioxide Anion Gap BUN Creatinine Estim Creat Clear Calc Estimated GFR Random Glucose Calcium Magnesium Total Bilirubin AST ALT Alkaline Phosphatase Troponin I High Sens 25.9 B-Natriuretic Peptide Total Protein Albumin COVID-19 (REUBEN) Negative COVID-19 Clin Com See Note Influenza Type A (ELYSSA) Influenza Type B (ELYSSA) Influenza A & B Note 04/03/22 04/03/22 06:50 06:50 WBC RBC Hgb Hct MCV MCH MCHC RDW Plt Count MPV Immature Gran % (Auto) Neut % (Auto) Lymph % (Auto) [place] % (Auto) Eos % (Auto) Baso % (Auto) Lymph # (Auto) [place] # (Auto) Eos # (Auto) Baso # (Auto) Abs Immat Gran (auto) Absolute Neuts (auto) Absolute Nucleated RBC Nucleated RBC % (auto) PT 14.7 H INR 1.3 H APTT 41.0 H Sodium 144 Potassium 4.5 Chloride 109 H Carbon Dioxide 26 Anion Gap 14 BUN 16 Creatinine 0.92 Estim Creat Clear Calc 71.7 Estimated GFR > 60 Random Glucose 105 Calcium 8.9 Magnesium Total Bilirubin AST ALT Alkaline Phosphatase Troponin I High Sens B-Natriuretic Peptide Total Protein Albumin COVID-19 (REUBEN) COVID-19 Clin Com Influenza Type A (ELYSSA) Influenza Type B (ELYSSA) Influenza A & B Note Airway Mallampati Class: III TM Dist: >3cm Neck ROM: Full Loose/Missing/Broken Teeth: No Heart: RRR Lungs: CTA Assessment and Plan Assessment Anesthesia Assessment: Anesthesia Plan Discussed and Chart Reviewed Final Anesthetic Review History of Problems with Anesthesia: No NPO: Yes ASA Class: III Final Preanesthetic Review: Meds/Allgs Chart Reviewed, Consent Obtained/Reviewed and Anes Risks/Benef Reviewed Patient Risk: Intermediate Procedure Risk: Intermediate Anesthetic Plan Anesthetic Plan: MAC: Disposition: Standard PACU
[2022-04-03] MEDS: Lactated Ringers 1,000 ML 50 ML IVCONT (13:13)
--- NOTE | 2022-04-03 15:31 | P.OP_ITS ---
Operative Note Operative Note Date of Service: 04/03/22 Narrative: for symptomatic bradycardia with paroxysmal atrial fibrillation and junctional bradycardia with rate in the 30s an Sebastian dual chamber permanent pacemaker was placed in the left subclavicular area without complication after sterile preparation and draping in the usual fashion and then following subclavian venogram with 15 cc of IV contrast we then made careful incision and dissection down to the level of the prepectoral fascia partially creating the pocket along the plane of the fascia securing all bleeders then gained separate entry x2 1st with 6 [place]i them with a 7 Bahraini introducer into the left subclavian vein without complication and passing retrograde with Seldinger technique 2 J tipped guidewires to the inferior vena cava then 1st 6 [place]i introducer was placed through which an active fixation right ventricular lead was then placed directed to the apex with a screw was deployed it was well tethered and at 10 volts no phrenic irritation and capture was 0.5 volts sensing 7.3 mV impedance 580 Ohms that lead was sewn and tethered to the pectoral muscle in the floor the pocket then passed an active fixation right atrial lead through a 7 [place]i introducer and that was placed in the right atrial appendage with a screw was deployed again well tethered and at 10 volts no phreni.c irritat ion atrial capture 1 volt sensing 1.1 mV and impedance 390 Ohms that lead was sewn and tethered to the floor the pocket a then attached both leads to the generator there was good into place and no change in impedance and I completed the pocket along the plane of the prepectoral fascia securing all bleeders and placed leads and generator into the pocket and closed the wound in 3 layers and then sterilely dressed patient came off the table awake alert currently 100% atrially paced and ventricular sensing and some ventricular pacing was noted it was appropriate function and he was brought to recovery and we await postoperative chest x-ray
[2022-04-04] VITALS: BP 124/51; PULSE 58; RESP 18; TEMP 36.9; O2SAT 95
[2022-04-04] MEDS: 0.9 % Sodium Chloride Flush 3 ML SYRINGE IVFLUSH ×2 (01:53→08:40)
[2022-04-04 03:47] VITALS: BP 150/60; PULSE 75; RESP 20; TEMP 36.8; O2SAT 94
[2022-04-04 07:12] VITALS: BP 173/82; PULSE 63; RESP 20; TEMP 36.9; O2SAT 95
[2022-04-04] MEDS: Atorvastatin Calcium 80 MG TABLET PO (08:39)
[2022-04-04] MEDS: lisinopriL 40 MG TABLET PO (08:39)
--- NOTE | 2022-04-04 08:56 | PM.CCN ---
Critical Care Event Note Summary Date of Service: 04/04/22 Code activated: No Narrative: This case had a high probability of a clinically significant, sudden, or life threatening deterioration of this patient's condition which required my full and direct attention, intervention and personal management. Critical Care Time (minutes): 15 Comment: reviewed the threshold data from interrogation of the new pacemaker this morning and the thresholds and impedances sensing etc. all absolutely comparable and excellent compared to yesterday we ordered the chest x-ray demonstrating excellent and normal position of both the atrial and ventricular wires definitely okay for discharge and wound care was explained to the patient he is not to touch or wet the wound for 2 weeks he will therefore washed his face in his hair in the sink but he can rinse off in the shower his body as long as it is below the level of the pacemaker and the only mechanical act is not to stretch to an extreme the left arm to reach for things away from the body for 4 weeks but otherwise can not perform normal tasks even driving and follow-up should be with Cardiology office in 2 weeks for the dressing removal
--- NOTE | 2022-04-04 10:30 | PM.DS ---
DS: Providers Provider Date of Service: 04/04/22 Date of admission: 04/02/22 13:51 Primary care physician: Faraz Angeles MD Consults: 04/02/22 12:42 Consult to Cardiology Stat Consulting Provider: Arthur Paiz Reason for consultation: symptomatic bradycardia Has provider been notified: Yes DS: Diagnosis Discharge Diagnosis (1) Symptomatic bradycardia: Status: Resolved (2) CAD (coronary artery disease): Status: Inactive (3) Hyperlipidemia: Status: Inactive (4) HTN (hypertension): Status: Inactive (5) Coronary artery disease: Status: Inactive (6) Elevated troponin: Status: Resolved (7) Paroxysmal atrial fibrillation: Status: Inactive (8) Diastolic CHF with preserved left ventricular function, NYHA class 2: Status: Inactive DS: Summary Hospital Course Hospital Course: Chief Complaint: lightheadedness, bradycardia 76 neena old male with history of htn, paroxysmal atrial fibrillation on eliquis, hld, cad, carpal tunnel syndrome, and vertigo presented to the ED earlier today from Dr. Tong's office in cardiology due to symptomatic bradycardia with EKG showing junctional bradycardia.. Pt reports intermittent lightheadedness since yesterday along with fatigue and weakness. States this is different than the vertigo he typically experiences. Noticed symptoms primarily when walking. has felt somewhat short of breath when climbing stairs but otherwise denies sob. No chest pain, focal weakness, paresthesias, visual changes. In the ED, HR 39. BP stable at 148/54. Pacer pads placed for monitoring. Renal function and electrolytes normal. Mild normocytic anemia with H/H 12.7/38.9%. BNP 367. CXR without acute abnormality. EKG in ED showing junctional bradycardia, rate 38. Hospital course: Patient was admitted for symptomatic bradycardia with paroxysmal atrial fibrillation and junctional bradycardia with rate in the 30s an Sebastian dual chamber permanent pacemaker was placed in the left subclavicular area without complication by Dr. Martinez and can resume prior home meds. Time Spent with Patient Time attestation: Total time managing care of this patient today ____ minutes. Discharge coordination time: Greater than 30 minutes Quality: Safe Use of Opioids Does Pt have an Active Cancer Diagnosis on the Problem List?: No Quality: Stroke Does the patient have a stroke diagnosis?: No Physical Exam Vital Signs: Vital Signs: Last Vital Signs Temp 98.4 F 04/04/22 07:12 Pulse 63 04/04/22 07:12 Resp 20 04/04/22 07:12 BP 173/82 H 04/04/22 07:12 Pulse Ox 95 04/04/22 07:12 O2 Del Method 04/04/22 07:12 O2 Flow Rate 2 04/03/22 16:10 BMI result Body Mass Index 33.0 Discharge Plan Discharge Anticipated Discharge Date/Time: 04/04/22 10:33 Patient Disposition: Home, Self-Care Discharge Diagnosis: for symptomatic bradycardia with paroxysmal atrial fibrillation and junctional bradycardia Referrals: Faraz Angeles MD [Primary Care Provider] - 1 Week Discharge Medications: Continued apixaban 5 mg tablet 5 mg PO BID Qty: 180 2RF lisinopril 40 mg tablet 40 mg PO DAILY bisoprolol-hydrochlorothiazide 10-6.25 mg Tablet 1 tab PO DAILY glucosamine-chondroitin [Osteo Bi-Flex] 250-200 mg tablet 1 tab PO ONCE Rx Instructions: give after food/meal rosuvastatin [Crestor] 40 mg tablet 40 mg PO DAILY Qty: 90 2RF amlodipine 5 mg tablet 5 mg PO DAILY Qty: 90 2RF Discharge Orders: Discharge Order (Routine); Ordered 04/04/22 Ordered By: Lm Campos Diet: Advance to usual diet Activity on Discharge: As tolerated Stand Alone Forms: Patient Portal Discharge page Care Plan Goals: full recovery from bradycardia Health Concerns: Bradycardia now have pacemaker Plan of Treatment: You should not touch or wet the wound for 2 weeks; you can wash your face and hair in the sink; you can rinse off your body in the shower as long as it is below the level of the pacemaker. You should not stretch out your left arm to the extreme to reach for things away from the body for 4 weeks; you can otherwise perform normal tasks, even driving. You should follow up with the Cardiology office in 2 weeks for the dressing removal (Dr. Paiz's office) Assessment: as above Discharge Date/Time: 04/04/22 13:53
[2022-04-04 11:02] VITALS: BP 140/60; PULSE 68; RESP 20; TEMP 37; O2SAT 93
--- NOTE | 2022-04-04 12:00 | HO.POSTANES ---
Post Anesthesia Evaluation Post Anesthesia Evaluation Vital Signs: 140/60, 68, 20, 98.6F, 93%RA Anesthesia: General Mental Status: Awake Pain Control: Satisfactory Nausea/Vomiting: None Hydration: Adequate Anesthesia-Related Issues: No Anes. Related Issues
--- NOTE | 2022-04-04 12:20 | MHC.CM.PN ---
Per discussion with MD, Patient has been medically cleared for dc to home today, self care. Last IMM addressed yesterday.
--- NOTE | 2022-04-04 12:46 | PM.PNCARD ---
Subjective Subjective Date of Service: 04/04/22 Interval history: Patient seen examined at bedside doing well after pacemaker placement. Device interrogation and chest x-ray is normal. Physical Exam Vital Signs: Last Vital Signs Temp 98.6 F 04/04/22 11:02 Pulse 68 04/04/22 11:02 Resp 20 04/04/22 11:02 BP 140/60 H 04/04/22 11:02 Pulse Ox 93 04/04/22 11:02 O2 Del Method 04/04/22 11:02 O2 Flow Rate 2 04/03/22 16:10 BMI result Body Mass Index 33.0 GENERAL APPEARANCE: in no acute distress, pleasant. NECK: no carotid bruit, no jugular venous distention. SKIN: Left chest wall pacemaker site is stable. HEART: no murmurs, regular rate and rhythm. LUNGS: clear to auscultation bilaterally. ABDOMEN: soft, nontender. EXTREMITIES: no edema. PERIPHERAL PULSES: equal. NEUROLOGIC: No gross deficits, AAO X 3 Objective Labs and Meds 04/03/22 06:50 04/03/22 06:50 Imaging Radiologist's impression: Impressions Guidance Fluoroscopy 04/03/22 15:34 IMPRESSION: Fluoroscopy guidance for pacemaker placement. Chest X-Ray 04/03/22 16:06 IMPRESSION: Pacemaker placement with lead in right atrium and right ventricle. There is no pneumothorax. Chest X-Ray 04/04/22 07:23 IMPRESSION: Left pectoral dual-lead pacemaker with lead tips overlying the right atrium and right ventricle. No pneumothorax. Progress Note: A&P Assessment and plan (1) Symptomatic bradycardia: Status: Acute Plan Pleasant 76-year-old gentleman presented with symptomatic bradycardia now status post permanent pacemaker placement. Clinically stable. Resume all home medications as before. Anticoagulation with apixaban 5 mg twice a day for atrial fibrillation. Follow-up in the office in 1-[address] Tong. Thank you for allowing me to participate in the care of your patient. Please feel free to contact me if you have any questions. Time Spent With Patient Time: Total time managing care of this patient today ____ minutes. Progress Note: Quality Stroke Does the patient have a stroke diagnosis?: No Procedures Date of Service Date of Service: 04/04/22
== END 2022-04-04 13:53 | disposition home or self-care (01) | DRG 243 ==
LOC: HO.ED 13:55 → HO.EDOVER 13:59 → HO.IMC 19:01
PROVIDERS: Internal Medicine Cardiovascular Disease; Nurse Practitioner Family; Physician Assistant; Admitting Provider Physician Assistant; Emergency Provider Student in an Organized Health Care Education/Training Program; PCP Internal Medicine; Visit Provider Internal Medicine
PROC: 0JH606Z Insertion of Pacemaker, Dual Chamber into Chest Subcutaneous Tissue and Fascia, Open Approach (ICD-10-PCS; principal; 2022-04-03 13:00)
DX: R00.1 Bradycardia, unspecified (principal); I50.32 Chronic diastolic (congestive) heart failure; I25.10 Atherosclerotic heart disease of native coronary artery without angina pectoris; I11.0 Hypertensive heart disease with heart failure; I48.0 Paroxysmal atrial fibrillation; E78.5 Hyperlipidemia, unspecified; Z20.822 Contact with and (suspected) exposure to COVID-19; Z87.891 Personal history of nicotine dependence; Z79.01 Long term (current) use of anticoagulants; Z79.899 Other long term (current) drug therapy
CPT/HCPCS: 36415; 71045; 80048; 80053; 83735; 83880; 84484; 85025; 85610; 85730; 87502; 87635; 93005; 99285; C1785; C1892; C1898; J0690; J1940; J2250; J3010; Q9967

== ENCOUNTER → 2022-04-14 12:13 | Outpatient (BNVA) | payer MEDICARE, SELFPAY | PROVIDERS: PCP Internal Medicine; Visit Provider Internal Medicine Cardiovascular Disease | DX: Z45.018 Encounter for adjustment and management of other part of cardiac pacemaker (principal); I49.5 Sick sinus syndrome; Z98.890 Other specified postprocedural states | CPT/HCPCS: 93280; 99212 ==

== ENCOUNTER → 2022-05-22 14:26 | Outpatient (BNVA) | payer MEDICARE, SELFPAY | PROVIDERS: PCP Internal Medicine; Referring Provider Internal Medicine; Visit Provider Internal Medicine Cardiovascular Disease | DX: Z45.018 Encounter for adjustment and management of other part of cardiac pacemaker (principal); I25.10 Atherosclerotic heart disease of native coronary artery without angina pectoris; I48.0 Paroxysmal atrial fibrillation | CPT/HCPCS: 93280; 99212 ==

== ENCOUNTER 2022-09-10 10:30 | Outpatient (REF) | payer MEDICARE, SELFPAY ==
[2022-09-10 13:00] LABS: MANUAL DIFF FLAG NO
[2022-09-10 13:36] LABS: Basophils Percent Auto 0.5 % (0-2); Eosinophils Absolute Auto 0.1 X10*3/uL (0.0-0.4); Eosinophils Percent Auto 1.6 % (0-4); Hematocrit 43.7 % (42.0-52.0); Hemoglobin 14.4 g/dl (14.0-18.0); Imm Gran Abs Auto 0.01 X10*3/uL (0.00-0.03); Imm Gran Pct Auto 0.2 % (0.0-0.4); Lymphocytes Absolute Auto 1.4 X10*3/uL (1.2-4.9); Lymphocytes Percent Auto 21.6 % (20-40); Mean Corpuscular Hemoglobin 28.8 pg (27.0-33.0); Mean Corpuscular Volume 87.4 fL (80.0-98.0); Monocytes Absolute Auto 0.6 X10*3/uL (0.1-1.2); Monocytes Percent Auto 9.8 % (2-11); Neutrophils Absolute Auto 4.2 x10*3/uL (2.0-8.3); Neutrophils Percent Auto 66.3 % (45-73); Platelet Count 212 X10*3/uL (160-400); Red Cell Distribution Width 12.8 % (11.0-16.0); White Blood Count 6.3 X10*3/uL (4.8-10.8)
[2022-09-10 13:51] LABS: Alanine Aminotransferase 15 U/L (0-40); Alkaline Phosphatase 104 U/L (39-117); Anion Gap 9 (12-20); Aspartate Amino Transferase 19 U/L (5-37); Bilirubin Total 0.5 mg/dL (0.0-1.0); Blood Urea Nitrogen 19 mg/dL (9-16); Calcium 9.2 mg/dL (8.4-10.2); Carbon Dioxide 30 mmol/L (22-29); Chloride 106 mmol/L (96-108); Estimated Glomerular Filt Rate > 60; Glucose Random 116 mg/dL (60-115); Potassium 4.9 mmol/L (3.3-5.1); Sodium 140 mmol/L (135-145)
[2022-09-10 14:09] LABS: Prostate Specific Antigen 1.59 ng/mL (<0.05-4.0)
== END 2022-09-10 10:31 | disposition home or self-care (01) ==
LOC: HO.MANLDS 10:30
PROVIDERS: Visit Provider Internal Medicine
DX: I10 Essential (primary) hypertension (principal); Z12.5 Encounter for screening for malignant neoplasm of prostate
CPT/HCPCS: 36415; 80053; 84153; 85025

== ENCOUNTER 2022-09-11 07:36 | Outpatient (REF) | payer MEDICARE, SELFPAY ==
--- NOTE | ~2022-09-11 | XR_ITS ---
EXAMINATION: XR KNEE, RIGHT CLINICAL INFORMATION: Right knee pain COMPARISON: None available. TECHNIQUE: Four views of the right knee. FINDINGS: Tricompartment spurring. Mild medial narrowing. No fracture, dislocation or joint effusion. Vascular calcifications. XR/XR knee RT 3V IMPRESSION: Mild degenerative changes.
== END 2022-09-11 07:37 | disposition home or self-care (01) ==
LOC: HO.XRAY 07:36
PROVIDERS: PCP Internal Medicine; Visit Provider Internal Medicine
DX: M25.561 Pain in right knee (principal)
CPT/HCPCS: 73562

== ENCOUNTER → 2022-10-30 23:59 | Outpatient (BNV) | payer MEDICARE, SELFPAY ==
--- NOTE | 2022-10-30 11:16 | MHC.OFFVIS ---
Intake Intake Visit Reasons: Remote Device Check- [facility] Allergies No Known Allergies Allergy (Mild, Verified 04/02/22 11:05) N/A [facility] Medical History Acute coronary syndrome CAD (coronary artery disease) Cardiac pacemaker in situ Coronary artery disease CTS (carpal tunnel syndrome) Diastolic CHF with preserved left ventricular function, NYHA class 2 HTN (hypertension) Hyperlipidemia Paroxysmal atrial fibrillation Uncontrolled hypertension Vertigo Surgical History H/O umbilical hernia repair History of cardiac cath Hx of cholecystectomy Family History Brother CAD (coronary artery disease) Social History Household Members: Spouse Housing: House Do you presently have visiting nurse or other home services: No Alcohol intake: never Patient Tobacco Use Status: Former Tobacco user Quit Date: 1971 Tobacco use type: Cigarette Cigarette Packs Per Day: 1 Cigarettes Per Day: 20.0 Years Smoked: 10 e-Cigarette/Vaping Use: Never Used Second Hand Smoke Exposure: No Substance Use Type: Caffiene Advance Directives Date on File: 04/02/22 service: Yes Current occupational status: retired Office Procedures Cardiac Device Check Cardiac Device Check Details: Remote pacemaker report generated 10/30/2022. Pacemaker function is adequate. Noted atrial fibrillation about 12% of time [id number] Cardiac Device Interrogation, pacemaker Procedure code (CPT) selection complete Coding Level of Care Code Procedure Only CPT Codes Cardiac Device Check - Cardiac Device 12: [id number] Cardiac Device Interrogation, pacemaker ([id number])
== END ==
PROVIDERS: PCP Internal Medicine; Visit Provider Internal Medicine Cardiovascular Disease
DX: I48.0 Paroxysmal atrial fibrillation (principal); Z95.0 Presence of cardiac pacemaker
CPT/HCPCS: 93294

== ENCOUNTER 2022-12-15 07:41 | Outpatient (REF) | payer MEDICARE, SELFPAY ==
[2022-12-15 13:48] LABS: Alanine Aminotransferase 16 U/L (0-40); Alkaline Phosphatase 95 U/L (39-117); Anion Gap 15 (12-20); Aspartate Amino Transferase 21 U/L (5-37); Bilirubin Total 0.6 mg/dL (0.0-1.0); Blood Urea Nitrogen 17 mg/dL (9-16); Calcium 9.2 mg/dL (8.4-10.2); Carbon Dioxide 27 mmol/L (22-29); Chloride 104 mmol/L (96-108); Cholesterol 101 mg/dL (<200); Estimated Glomerular Filt Rate > 60; Glucose Random 117 mg/dL (60-115); HDL Cholesterol 36 mg/dL (>40); LDL Cholesterol Calculated 39 mg/dL (<100); Potassium 4.2 mmol/L (3.3-5.1); Sodium 142 mmol/L (135-145); Total Protein 7.1 g/dL (6.5-8.0); Triglycerides 134 mg/dL (<150)
== END 2022-12-15 07:42 | disposition home or self-care (01) ==
LOC: HO.MANLDS 07:41
PROVIDERS: Visit Provider Internal Medicine
DX: I24.9 Acute ischemic heart disease, unspecified (principal)
CPT/HCPCS: 36415; 80053; 80061

== ENCOUNTER 2022-12-16 09:10 | Outpatient (AMB) | payer MEDICARE, SELFPAY ==
[2022-12-16 09:12] VITALS: BP 136/80; PULSE 60; BMI 33.8
--- NOTE | 2022-12-16 09:12 | MHC.OFFVIS ---
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 He has been doing very well from cardiac perspective. Occasionally feels fluttering in his chest that last for about a minute. No prolonged palpitation irregular heartbeat. Denies any exertional chest pain or shortness of breath. Remains very active. Takes all his medications. Denies orthopnea, PND, leg edema. Denies lightheadedness, syncope. [facility] Medical History Cardiac pacemaker in situ Diastolic CHF with preserved left ventricular function, NYHA class 2 CAD (coronary artery disease) Hyperlipidemia Coronary artery disease Uncontrolled hypertension Paroxysmal atrial fibrillation Acute coronary syndrome CTS (carpal tunnel syndrome) HTN (hypertension) Vertigo Surgical History History of cardiac cath H/O umbilical hernia repair Hx of cholecystectomy Family History Brother CAD (coronary artery disease) Social History Household Members: Spouse Housing: House Do you presently have visiting nurse or other home services: No Alcohol intake: never Patient Tobacco Use Status: Former Tobacco user Quit Date: 1971 Tobacco use type: Cigarette Cigarette Packs Per Day: 1 Cigarettes Per Day: 20.0 Years Smoked: 10 e-Cigarette/Vaping Use: Never Used Second Hand Smoke Exposure: No Substance Use Type: Caffiene Advance Directives Date on File: 04/02/22 service: Yes Current occupational status: retired Review of Systems Const Denies chills, Denies fatigue, Denies fever(s), Denies frequent falls, Denies weakness, Denies weight gain and Denies weight loss ENT Denies dizziness Card Denies chest pain, Denies leg edema, Denies lightheadedness, Denies palpitations, Denies dyspnea, Denies dyspnea on exertion, Denies orthopnea and Denies other (loss of consciousness) Resp Denies cough, Denies dyspnea and Denies dyspnea on exertion GI Denies hematochezia and Denies change in stool character Musc Denies abnormal gait, Denies muscle weakness, Denies numbness, Denies radiating pain into limb and Denies tingling Neuro Denies abnormal gait, Denies dizziness, Denies frequent falls, Denies numbness, Denies tingling and Denies weakness Endo Denies fatigue and Denies palpitations Physical Exam Vital Signs: Last Vital Signs Pulse 60 12/16/22 09:12 BP 136/80 12/16/22 09:12 BMI result Body Mass Index 33.8 Repeat blood pressure is 132/60 Const General: cooperative, healthy appearing, no acute distress, alert and awake Orientation/consciousness: patient oriented x3 Neck Neck: Yes normal visual inspection and Yes no JVD Chest Chest palpation & inspection: other (Pacer site is benign) Resp Effort & Inspection: normal respiratory effort, able to speak in complete sentences and not labored Auscultation: clear to auscultation bilaterally, no crackles, no rales, no rhonchi and no wheezes Cardio Rate: regular rate Rhythm: regular rhythm Heart sounds: S1 normal heart sound present and S2 normal heart sound present Peripheral pulses: Peripheral pulses 2+ throughout GI Inspection: Yes normal to inspection Neuro General: patient oriented x3 Extrem Other: Right radial catheterization site well healed with easily palpable radial pulse and normal right hand assessment General: Yes normal to inspection and No edema Office Procedures Cardiac Device Check Cardiac Device Check Details: Dual-chamber [facility] Teddy pacemaker in place. Programmed in DDDR at 60 beats per minute. Atrial pacing 93% of time. Prolonged episode of atrial fibrillation episode noted on 12/13/2022. Patient does not recall any significant symptoms. Total burden of 3.2%. Atrial pacing thresholds and ventricular pacing thresholds excellent. Atrial ventricular sensing is adequate. Pacing lead impedance is stable. Battery life is excellent about 10 years [id number] Cardiac Device Check, pacemaker dual lead Procedure code (CPT) selection complete Assessment & Plan Assessment & Plan (1) Paroxysmal atrial fibrillation: Code(s): I48.0 - Paroxysmal atrial fibrillation Plan: Paroxysmal atrial fibrillation without any overt symptoms. Increased burden to 3.2%. Will continue monitor by remote telemetry and in the clinic. Continue full oral anticoagulation, currently on Eliquis 5 mg b.i.d.. Advised to call me with worsening symptoms that may require antiarrhythmic drug support, continue aggressive blood pressure control which is well optimized. Semi annual renal function test to be pursued. (2) CAD (coronary artery disease): Code(s): I25.10 - Atherosclerotic heart disease of [place] coronary artery without angina pectoris Plan: CAD with no symptoms of angina, currently stable. Good functional status. Continue current dual antianginal therapy. Continue high-intensity statin therapy with goal LDL closer to 60 mg/dL. Blood pressure is currently well optimized advised to monitor blood pressure at home maintain a log. (3) Cardiac pacemaker in situ: Comment: [employer] Teddy dual-chamber pacemaker implanted March 2022 Code(s): Z95.0 - Presence of cardiac pacemaker Plan: Cardiac pacemaker in-situ, working well. Patient significantly symptomatic sick sinus syndrome which is now resolved. Will continue monitor remotely. Follow up in the clinic in 6 months time. Follow up in the clinic in 6 months time, sooner p.r.n.. Thank you for allowing me to partake in his care Coding Level of Care Code Est Pt Level 4 (21238) Diagnoses Paroxysmal atrial fibrillation I48.0 CAD (coronary artery disease) I25.10 Cardiac pacemaker in situ Z95.0 CPT Codes Cardiac Device Check - Cardiac Device 2: [id number] Cardiac Device Check, pacemaker dual lead ([id number])
== END 2022-12-16 09:28 | disposition home or self-care (01) ==
PROVIDERS: Visit Provider Internal Medicine Cardiovascular Disease
DX: I48.0 Paroxysmal atrial fibrillation (principal); I25.10 Atherosclerotic heart disease of native coronary artery without angina pectoris; Z95.0 Presence of cardiac pacemaker
CPT/HCPCS: 93280; 99214

== ENCOUNTER → 2022-12-16 09:10 | Outpatient (BNVA) | payer MEDICARE, SELFPAY | PROVIDERS: Visit Provider Internal Medicine Cardiovascular Disease | DX: Z45.018 Encounter for adjustment and management of other part of cardiac pacemaker (principal); I48.0 Paroxysmal atrial fibrillation; I25.10 Atherosclerotic heart disease of native coronary artery without angina pectoris | CPT/HCPCS: 93280; 99212 ==

== ENCOUNTER → 2023-01-29 23:59 | Outpatient (BNV) | payer MEDICARE, SELFPAY ==
--- NOTE | 2023-01-29 10:32 | MHC.OFFVIS ---
Intake Intake Visit Reasons: Remote Device Check- [facility] Allergies No Known Allergies Allergy (Mild, Verified 04/02/22 11:05) N/A [facility] Medical History Cardiac pacemaker in situ Diastolic CHF with preserved left ventricular function, NYHA class 2 CAD (coronary artery disease) Hyperlipidemia Coronary artery disease Uncontrolled hypertension Paroxysmal atrial fibrillation Acute coronary syndrome CTS (carpal tunnel syndrome) HTN (hypertension) Vertigo Surgical History History of cardiac cath H/O umbilical hernia repair Hx of cholecystectomy Family History Brother CAD (coronary artery disease) Social History Household Members: Spouse Housing: House Do you presently have visiting nurse or other home services: No Alcohol intake: never Patient Tobacco Use Status: Former Tobacco user Quit Date: 1971 Tobacco use type: Cigarette Cigarette Packs Per Day: 1 Cigarettes Per Day: 20.0 Years Smoked: 10 e-Cigarette/Vaping Use: Never Used Second Hand Smoke Exposure: No Substance Use Type: Caffiene Advance Directives Date on File: 04/02/22 service: Yes Current occupational status: retired Office Procedures Cardiac Device Check Cardiac Device Check Details: Remote pacemaker report generated 01/29/2023. Pacemaker function is adequate. Intermittent episodes of atrial fibrillation noted with total burden of 4.6% [id number] Cardiac Device Interrogation, pacemaker Procedure code (CPT) selection complete Assessment & Plan Assessment & Plan (1) Cardiac pacemaker in situ: Comment: [employer] Teddy dual-chamber pacemaker implanted March 2022 Code(s): Z95.0 - Presence of cardiac pacemaker Plan: See above Coding Level of Care Code Procedure Only Diagnoses Cardiac pacemaker in situ Z95.0 CPT Codes Cardiac Device Check - Cardiac Device 12: [id number] Cardiac Device Interrogation, pacemaker ([id number])
== END ==
PROVIDERS: PCP Internal Medicine; Visit Provider Internal Medicine Cardiovascular Disease
DX: I48.0 Paroxysmal atrial fibrillation (principal); Z95.0 Presence of cardiac pacemaker
CPT/HCPCS: 93294

== ENCOUNTER → 2023-05-01 23:59 | Outpatient (BNV) | payer MEDICARE, SELFPAY ==
--- NOTE | 2023-05-06 14:49 | MHC.OFFVIS ---
Intake Intake Visit Reasons: Remote Device Check-[facility] Allergies No Known Allergies Allergy (Mild, Verified 04/02/22 11:05) N/A [facility] Medical History Cardiac pacemaker in situ Diastolic CHF with preserved left ventricular function, NYHA class 2 CAD (coronary artery disease) Hyperlipidemia Coronary artery disease Uncontrolled hypertension Paroxysmal atrial fibrillation Acute coronary syndrome CTS (carpal tunnel syndrome) HTN (hypertension) Vertigo Surgical History History of cardiac cath H/O umbilical hernia repair Hx of cholecystectomy Family History Brother CAD (coronary artery disease) Social History Household Members: Spouse Housing: House Do you presently have visiting nurse or other home services: No Alcohol intake: never Patient Tobacco Use Status: Former Tobacco user Quit Date: 1971 Tobacco use type: Cigarette Cigarette Packs Per Day: 1 Cigarettes Per Day: 20.0 Years Smoked: 10 e-Cigarette/Vaping Use: Never Used Second Hand Smoke Exposure: No Substance Use Type: Caffiene Advance Directives Date on File: 04/02/22 service: Yes Current occupational status: retired Office Procedures Cardiac Device Check Cardiac Device Check Details: Remote pacemaker report generated 05/01/2023. Pacemaker function is adequate. Total burden of atrial fibrillation about 5% [id number] Cardiac Device Interrogation, pacemaker Procedure code (CPT) selection complete Assessment & Plan Assessment & Plan (1) Cardiac pacemaker in situ: Comment: [facility] Teddy dual-chamber pacemaker implanted March 2022 Code(s): Z95.0 - Presence of cardiac pacemaker Plan: See above Coding Level of Care Code Procedure Only Diagnoses Cardiac pacemaker in situ Z95.0 CPT Codes Cardiac Device Check - Cardiac Device 12: [id number] Cardiac Device Interrogation, pacemaker ([id number])
== END ==
PROVIDERS: PCP Internal Medicine; Visit Provider Internal Medicine Cardiovascular Disease
DX: Z95.0 Presence of cardiac pacemaker (principal)
CPT/HCPCS: 93294

== ENCOUNTER → 2023-06-08 08:43 | Outpatient (REF) | payer MEDICARE, SELFPAY ==
--- NOTE | 2023-06-08 08:46 | CA_ITS ---
Transthoracic Echocardiogram Patient (Last, First, Middle): Filippo Nicole, Gender: Male Date of : 1945 Age: 77 Procedure Date: 06/08/2023 Procedure Type: Transthoracic Echocardiogram Location: OP Height: 167.64 cm Weight: 92.99 kg BSA: 2.02 m2 Heart Rate: bpm BP: 138 / 70 mmHg Track Layer Head: SILVER Referring MD: Julian Tong MD Embroidery Cutter: Julian Tong MD Symptoms: I48.0 - Paroxysmal atrial fibrillation Study Quality: Adequate ECG Rhythm: Sinus Conclusions: - 1. Normal LV ejection fraction 55-60% with pseudonormal filling pattern 2. Moderately dilated left atrium 3. Mild aortic regurgitation 4. Mildly dilated ascending aorta at 3.7 cm 5. No pericardial effusion Findings Left Ventricle Normal left ventricular size, thickness, and systolic function. The visually estimated ejection fraction is between 55-60%. Spectral Doppler is indicative of a pseudonormal filling pattern. There is mild septal asymmetric hypertrophy. Right Ventricle Normal right ventricular cavity size and systolic function. Atria The left atrium is moderately dilated. There is no evidence of interatrial shunt. The right atrium is mildly dilated. Aortic Valve Normal aortic valve structure and function. There is no aortic valve stenosis. There is mild aortic valve regurgitation. Mitral Valve There is mild anterior and posterior mitral leaflet thickening. There is mild mitral valve regurgitation. There is no mitral valve stenosis. Pulmonic Valve The pulmonic valve is likely normal. There is trace pulmonic valve regurgitation. Tricuspid Valve Normal tricuspid valve structure. Tricuspid regurgitation envelope is inadequate for calculation of right ventricular systolic pressure. Normal right atrial pressure. Great Vessels There is mild dilatation of the ascending aorta measuring 3.70 cm. Venous The inferior vena cava is normal in size and collapses greater than 50% with inspiration. Pericardium/Pleural There is no evidence of pericardial effusion. Prior Study Comparison No significant change compared to prior study dated: 03/05/2022. Measurements 2D Linear Measurements IVSd: 1.20 0.6-0.9/0.6-1.0 cm LVIDd: 5.39 3.9-5.3/4.2-5.9 cm LVIDd Index: 2.67 2.4-3.2/2.2-3.1 cm/m2 LVIDs: 3.83 2.0-3.6 cm LVPWd: 0.98 0.7-1.1 cm LA Diam: 3.90 2.7-3.8/3.0-4.0 cm LAIDs Index: 1.93 1.5-2.3 cm/m2 LV Mass: 287.58 67-162/88-224 g LV Mass Index: 142.37 43-95/49-115 g/m2 LVOT Diam: 2.10 3.0+(-)1.3 cm 2D Systolic Function EF 4C: 55.70 >55% EF 2C: 63.70 >55% EF BiP: 58.80 >55% Mitral Valve MV Pk E: 0.88 MV PK A: 0.50 MV Decel Time: 305.00 E/A: 1.80 E'Lateral: 7.07 E'Medial: 5.11 E/E' Med: 17.30 E/E' Lat: 12.50 PHT: 89.00 MVA PHT: 2.47 Decel Dewitt: 2.90 Aortic Valve AoV Pk Marvin: 1.47 AoV Mn Marvin: 1.06 AoV VTI: 0.39 AoV Pk Grad: 9.00 Aov Mn Grad: 5.00 SAMANTHA Cont.VTI: 2.22 LVOT LVOT Pk Marvin: 0.97 LVOT Mn Marvin: 0.71 LVOT VTI: 0.25 LVOT Pk Grad: 4.00 LVOT Mn Grad: 2.00 LVOT Diam: 2.10 LVOT Area: 3.46 Diastolic Function MV Pk E: 0.88 MV Pk A: 0.50 E/A: 1.80 E'Medial: 5.11 E/E' Med: 17.30 E' Laterial: 7.07 E/E' Lat: 12.50 Right Ventricle TAPSE (mm): 23.40 TVS' Marvin: 12.60 Tricuspid Valve TR Pk Marvin: 2.81 TR Pk Grad: 32.00 Great Vessels Aorta Sinus of Valsalva: 3.52 2.0-3.[address] [place]: 2.67 1.7-3.4 cm Ao Asc: 3.70 2.1-3.4 cm Updated in Other Vendor System with Status of Final Julian Tong MD electronically signed on 06/08/2023 3:57:25 PM with status of Final
== END ==
LOC: HO.CARD 08:43
PROVIDERS: PCP Internal Medicine; Visit Provider Internal Medicine Cardiovascular Disease
DX: I48.0 Paroxysmal atrial fibrillation (principal)
CPT/HCPCS: 93306

== ENCOUNTER → 2023-06-08 08:46 | Outpatient (BNV) | payer MEDICARE, SELFPAY | PROVIDERS: PCP Internal Medicine; Visit Provider Internal Medicine Cardiovascular Disease | DX: I35.1 Nonrheumatic aortic (valve) insufficiency (principal) | CPT/HCPCS: 93306 ==

== ENCOUNTER 2023-06-18 09:22 | Outpatient (AMB) | payer MEDICARE, SELFPAY ==
[2023-06-18 09:23] VITALS: BP 120/64; PULSE 60; BMI 34.2
--- NOTE | 2023-06-18 09:23 | MHC.OFFVIS ---
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 He has been doing very well. He said he walks every day for an hour and does other exercises. He denies any significant cardiac symptoms. Denies any exertional chest pain. Says does get short of breath when he climbs a flight of stairs quickly with some load. Otherwise no anginal symptoms. Denies any prolonged palpitation irregular heartbeat. Taking all his medications. No bleeding issues or neurologic events. No heart failure symptoms. [facility] Medical History Cardiac pacemaker in situ Diastolic CHF with preserved left ventricular function, NYHA class 2 CAD (coronary artery disease) Hyperlipidemia Coronary artery disease Uncontrolled hypertension Paroxysmal atrial fibrillation Acute coronary syndrome CTS (carpal tunnel syndrome) HTN (hypertension) Vertigo Surgical History History of cardiac cath H/O umbilical hernia repair Hx of cholecystectomy Family History Brother CAD (coronary artery disease) Social History Household Members: Spouse Housing: House Do you presently have visiting nurse or other home services: No Alcohol intake: never Patient Tobacco Use Status: Former Tobacco user Quit Date: 1971 Tobacco use type: Cigarette Cigarette Packs Per Day: 1 Cigarettes Per Day: 20.0 Years Smoked: 10 e-Cigarette/Vaping Use: Never Used Second Hand Smoke Exposure: No Substance Use Type: Caffiene Advance Directives Date on File: 04/02/22 service: Yes Current occupational status: retired Review of Systems Const Denies chills, Denies fatigue, Denies fever(s), Denies frequent falls, Denies weakness, Denies weight gain and Denies weight loss ENT Denies dizziness Card Denies chest pain, Denies leg edema, Denies lightheadedness, Denies palpitations, Denies dyspnea, Denies dyspnea on exertion, Denies orthopnea and Denies other (loss of consciousness) Resp Denies cough, Denies dyspnea and Denies dyspnea on exertion GI Denies hematochezia and Denies change in stool character Musc Denies abnormal gait, Denies muscle weakness, Denies numbness, Denies radiating pain into limb and Denies tingling Neuro Denies abnormal gait, Denies dizziness, Denies frequent falls, Denies numbness, Denies tingling and Denies weakness Endo Denies fatigue and Denies palpitations Physical Exam Vital Signs: Last Vital Signs Pulse 60 06/18/23 09:23 BP 120/64 06/18/23 09:23 BMI result Body Mass Index 34.2 Repeat blood pressure is 132/60 Const General: cooperative, healthy appearing, no acute distress, alert and awake Orientation/consciousness: patient oriented x3 Neck Neck: Yes normal visual inspection and Yes no JVD Chest Chest palpation & inspection: other (Pacer site is benign) Resp Effort & Inspection: normal respiratory effort, able to speak in complete sentences and not labored Auscultation: clear to auscultation bilaterally, no crackles, no rales, no rhonchi and no wheezes Cardio Rate: regular rate Rhythm: regular rhythm Heart sounds: S1 normal heart sound present and S2 normal heart sound present Peripheral pulses: Peripheral pulses 2+ throughout GI Inspection: Yes normal to inspection Neuro General: patient oriented x3 Extrem Other: Right radial catheterization site well healed with easily palpable radial pulse and normal right hand assessment General: Yes normal to inspection and No edema Office Procedures Cardiac Device Check Cardiac Device Check Details: Dual-chamber [facility] Teddy pacemaker in place. Programmed in DDDR at 60 beats per minute. Atrial pacing 94% of the time. Total burden of atrial fibrillation at 3.9%. Atrial pacing thresholds excellent and reprogrammed to enhance battery life. Ventricular pacing thresholds are stable. Atrial ventricular sensing is adequate. Pacing lead is stable. Battery life is at 9.1 year's [id number] Cardiac Device Check, pacemaker dual lead Procedure code (CPT) selection complete Assessment & Plan Assessment & Plan (1) CAD (coronary artery disease): Code(s): I25.10 - Atherosclerotic heart disease of [place] coronary artery without angina pectoris Category: Medical Plan: CAD with branch vessel disease with distal circumflex stenosis without any symptoms of angina on current dual antianginal therapy. Currently on full oral anticoagulation. Avoid antiplatelet regimen to reduce bleeding risk. Continue aggressive risk factor modification. Currently on high-intensity statin therapy. Target goal LDL less than 70 mg/dL. Advise at least annual lipid check. Blood pressure is currently well optimized advised to monitor blood pressure at home maintain a log. Goal blood pressure less than 130/84. Encouraged to continue to participate in physical activity as tolerated. Advised to call me with any new anginal symptoms. (2) Cardiac pacemaker in situ: Comment: [facility] Teddy dual-chamber pacemaker implanted March 2022 Code(s): Z95.0 - Presence of cardiac pacemaker Category: Medical Plan: Cardiac pacemaker in-situ for sick sinus syndrome. Pacemaker is working well. Reprogrammed for adequate function. Will follow up remotely every 3 months and follow up in the clinic in 6 months time. (3) Paroxysmal atrial fibrillation: Code(s): I48.0 - Paroxysmal atrial fibrillation Category: Medical Plan: Paroxysmal atrial fibrillation with about 3.9% burden of atrial fibrillation without any clinical symptoms. Will continue pursue rhythm control approach. Continue bisoprolol therapy. Does have moderate left atrial enlargement which increase the risk of recurrent atrial fibrillation. We would developed persistent atrial fibrillation may require antiarrhythmic drug therapy. Continue full oral anticoagulation, currently on Eliquis 5 mg b.i.d.. Continue blood pressure control. Semi annual renal function test is recommended. Will follow up in the clinic in 6 months time, sooner p.r.n.. Thank you for allowing me to partake in his care Orders: Orders Basic Metabolic Panel Today I48.0 - Paroxysmal atrial fibrillation Coding Level of Care Code Est Pt Level 4 (53817) Diagnoses CAD (coronary artery disease) I25.10 Cardiac pacemaker in situ Z95.0 Paroxysmal atrial fibrillation I48.0 CPT Codes Cardiac Device Check - Cardiac Device 2: [id number] Cardiac Device Check, pacemaker dual lead ([id number])
== END 2023-06-18 09:44 | disposition home or self-care (01) ==
PROVIDERS: PCP Internal Medicine; Visit Provider Internal Medicine Cardiovascular Disease
DX: I25.10 Atherosclerotic heart disease of native coronary artery without angina pectoris (principal); Z95.0 Presence of cardiac pacemaker; I48.0 Paroxysmal atrial fibrillation
CPT/HCPCS: 93280; 99214

== ENCOUNTER 2023-06-18 09:22 | Outpatient (REF) | payer MEDICARE, SELFPAY ==
[2023-06-18 11:19] LABS: Anion Gap 13 (12-20); Blood Urea Nitrogen 16 mg/dL (9-16); Calcium 9.4 mg/dL (8.4-10.2); Carbon Dioxide 26 mmol/L (22-29); Chloride 106 mmol/L (96-108); Estimated Glomerular Filt Rate > 60; Glucose Random 150 mg/dL (60-115); Potassium 4.5 mmol/L (3.3-5.1); Sodium 140 mmol/L (135-145)
== END 2023-06-18 09:23 | disposition home or self-care (01) ==
LOC: HO.LAB 09:22
PROVIDERS: PCP Internal Medicine; Visit Provider Internal Medicine Cardiovascular Disease
DX: I25.10 Atherosclerotic heart disease of native coronary artery without angina pectoris (principal); I48.0 Paroxysmal atrial fibrillation; Z95.0 Presence of cardiac pacemaker
CPT/HCPCS: 36415; 80048; 93280; 99212

== ENCOUNTER → 2023-07-30 23:59 | Outpatient (BNV) | payer MEDICARE, SELFPAY ==
--- NOTE | 2023-08-03 13:38 | MHC.OFFVIS ---
Intake Visit Reasons: Remote Device Check- [facility] Allergies No Known Allergies Allergy (Mild, Verified 04/02/22 11:05) N/A [facility] Medical History Cardiac pacemaker in situ Diastolic CHF with preserved left ventricular function, NYHA class 2 CAD (coronary artery disease) Hyperlipidemia Coronary artery disease Uncontrolled hypertension Paroxysmal atrial fibrillation Acute coronary syndrome CTS (carpal tunnel syndrome) HTN (hypertension) Vertigo Surgical History History of cardiac cath H/O umbilical hernia repair Hx of cholecystectomy Family History Brother CAD (coronary artery disease) Social History Household Members: Spouse Housing: House Do you presently have visiting nurse or other home services: No Alcohol intake: never Patient Tobacco Use Status: Former Tobacco user Tobacco use type: Cigarette Cigarette Packs Per Day: 1 Cigarettes Per Day: 20.0 Years Smoked: 10 e-Cigarette/Vaping Use: Never Used Second Hand Smoke Exposure: No Substance Use Type: Caffiene Advance Directives Date on File: 04/02/22 service: Yes Current occupational status: retired Office Procedures Cardiac Device Check Cardiac Device Check Details: Remote pacemaker report generated 07/30/2023. Pacemaker function is adequate. [place] of atrial fibrillation at 4% [id number] Cardiac Device Interrogation, pacemaker Procedure code (CPT) selection complete Assessment & Plan Assessment & Plan (1) Cardiac pacemaker in situ: Comment: [facility] Teddy dual-chamber pacemaker implanted March 2022 Code(s): Z95.0 - Presence of cardiac pacemaker Category: Medical Plan: See aboveSee above Coding Level of Care Code Procedure Only Diagnoses Cardiac pacemaker in situ Z95.0 CPT Codes Cardiac Device Check - Cardiac Device 12: [id number] Cardiac Device Interrogation, pacemaker ([id number])
== END ==
PROVIDERS: PCP Internal Medicine; Visit Provider Internal Medicine Cardiovascular Disease
DX: I48.91 Unspecified atrial fibrillation (principal); Z95.0 Presence of cardiac pacemaker
CPT/HCPCS: 93294

== ENCOUNTER → 2023-10-29 23:59 | Outpatient (BNV) | payer MEDICARE, SELFPAY ==
--- NOTE | 2023-10-29 10:09 | A.OFFVIS_ITS ---
Intake Visit Reasons: Remote device check- [facility] Teddy Allergies No Known Allergies Allergy (Mild, Verified 04/02/22 11:05) N/A [facility] Medical History Cardiac pacemaker in situ Diastolic CHF with preserved left ventricular function, NYHA class 2 CAD (coronary artery disease) Hyperlipidemia Coronary artery disease Uncontrolled hypertension Paroxysmal atrial fibrillation Acute coronary syndrome CTS (carpal tunnel syndrome) HTN (hypertension) Vertigo Surgical History History of cardiac cath H/O umbilical hernia repair Hx of cholecystectomy Family History Brother CAD (coronary artery disease) Social History Household Members: Spouse Housing: House Do you presently have visiting nurse or other home services: No Alcohol intake: never Patient Tobacco Use Status: Former Tobacco user Tobacco use type: Cigarette Cigarette Packs Per Day: 1 Cigarettes Per Day: 20.0 Years Smoked: 10 e-Cigarette/Vaping Use: Never Used Second Hand Smoke Exposure: No Substance Use Type: Caffiene Advance Directives Date on File: 04/02/22 service: Yes Current occupational status: retired Office Procedures Cardiac Device Check Cardiac Device Check Details: Remote pacemaker report generated 10/29/2023. Pacemaker function is adequate. [id number] Cardiac Device Interrogation, pacemaker Procedure code (CPT) selection complete Assessment & Plan Assessment & Plan (1) Cardiac pacemaker in situ: Comment: [employer] Teddy dual-chamber pacemaker implanted March 2022 Code(s): Z95.0 - Presence of cardiac pacemaker Category: Medical Plan: See above Coding Level of Care Code Procedure Only Diagnoses Cardiac pacemaker in situ Z95.0 CPT Codes Cardiac Device Check - Cardiac Device 12: [id number] Cardiac Device Interrogation, pacemaker ([id number])
== END ==
PROVIDERS: PCP Internal Medicine; Visit Provider Internal Medicine Cardiovascular Disease
DX: I50.9 Heart failure, unspecified (principal); Z95.0 Presence of cardiac pacemaker
CPT/HCPCS: 93294

== ENCOUNTER 2023-12-08 09:58 | Outpatient (REF) | payer MEDICARE, SELFPAY ==
[2023-12-08 13:11] LABS: MANUAL DIFF FLAG NO
[2023-12-08 13:39] LABS: Basophils Percent Auto 0.5 % (0-2); Eosinophils Absolute Auto 0.1 X10*3/uL (0.0-0.4); Eosinophils Percent Auto 1.4 % (0-4); Hematocrit 39.7 % (42.0-52.0); Hemoglobin 13.3 g/dl (14.0-18.0); Imm Gran Abs Auto 0.01 X10*3/uL (0.00-0.03); Imm Gran Pct Auto 0.2 % (0.0-0.4); Lymphocytes Absolute Auto 1.2 X10*3/uL (1.2-4.9); Lymphocytes Percent Auto 19.7 % (20-40); Mean Corpuscular HGB Conc 33.5 g/dl (31.0-36.0); Mean Corpuscular Hemoglobin 28.6 pg (27.0-33.0); Mean Corpuscular Volume 85.4 fL (80.0-98.0); Mean Platelet Volume 10.3 fL (9.4-12.4); Monocytes Absolute Auto 0.6 X10*3/uL (0.1-1.2); Monocytes Percent Auto 10.2 % (2-11); Neutrophils Absolute Auto 4.3 x10*3/uL (2.0-8.3); Platelet Count 211 X10*3/uL (160-400); Red Blood Count 4.65 X10*6/uL (4.60-5.80); Red Cell Distribution Width 13.6 % (11.0-16.0); White Blood Count 6.3 X10*3/uL (4.8-10.8)
[2023-12-08 13:52] LABS: Estimated Average Glucose 120 mg/dL; Hemoglobin A1C 183.5387 umol/L; Hemoglobin A1c % 5.8 % (<6.0); Total Hemoglobin (HGBA1C) 4560.9538 umol/L
[2023-12-08 14:06] LABS: Prostate Specific Antigen 1.68 ng/mL (<0.05-4.0)
[2023-12-08 19:33] LABS: Alanine Aminotransferase 15 U/L (0-40); Albumin Level 3.9 g/dL (3.5-5.0); Alkaline Phosphatase 94 U/L (39-117); Anion Gap 10 (12-20); Aspartate Amino Transferase 28 U/L (5-37); Bilirubin Total 0.4 mg/dL (0.0-1.0); Blood Urea Nitrogen 24 mg/dL (9-16); Calcium 9.4 mg/dL (8.4-10.2); Carbon Dioxide 29 mmol/L (22-29); Chloride 107 mmol/L (96-108); Cholesterol 95 mg/dL (<200); Estimated Glomerular Filt Rate > 60; Glucose Random 123 mg/dL (60-115); HDL Cholesterol 38 mg/dL (>40); LDL Cholesterol Calculated 34 mg/dL (<100); Potassium 4.6 mmol/L (3.3-5.1); Sodium 141 mmol/L (135-145); Total Protein 6.7 g/dL (6.5-8.0); Triglycerides 115 mg/dL (<150)
== END 2023-12-08 09:59 | disposition home or self-care (01) ==
LOC: HO.MANLDS 09:58
PROVIDERS: Visit Provider Internal Medicine
DX: Z00.00 Encounter for general adult medical examination without abnormal findings (principal); Z12.5 Encounter for screening for malignant neoplasm of prostate; R73.01 Impaired fasting glucose
CPT/HCPCS: 36415; 80053; 80061; 83036; 84153; 85025

== ENCOUNTER 2023-12-29 08:44 | Outpatient (AMB) | payer MEDICARE, SELFPAY ==
[2023-12-29 09:09] VITALS: BP 130/60; PULSE 60; BMI 33.7
--- NOTE | 2023-12-29 09:09 | MHC.OFFVIS ---
Vital Signs 12/29/23 09:09 Height 5 ft 6 in Weight 208 lb 8.917 oz BMI 33.7 BP 130/60 Blood Pressure Location Lt brachial Position Sitting Pulse 60 Pulse Source Monitor Intake Visit Reasons: 6m follow up w device ck Intake Note: 6 mth f/up w device check and ekg Dial Brusher Required: No Accompanied by: Self / Same As Patient Allergies No Known Allergies Allergy (Mild, Verified 04/02/22 11:05) N/A Medication List - Last Reconciled 12/29/23 by Julian Tong MD amlodipine 5 mg PO DAILY apixaban (Eliquis) 5 mg PO BID bisoprolol-hydrochlorothiazide 10-6.25 mg 1 tab PO DAILY glucosamine-chondroitin 250-200 mg (Osteo Bi-Flex) 1 tab PO ONCE lisinopril 40 mg PO DAILY rosuvastatin (Crestor) 40 mg PO DAILY HPI Comments Details: Filippo comes for follow-up. He has been doing extremely well. Denies any cardiac symptoms. Denies any exertional chest pain or shortness of breath with his routine activity. However he says after he works out in the [employer] for about an hour when he goes up a flight of stairs he does get short of breath. However walking 3 flights of stair up today he did not have any shortness of breath. Denies any orthopnea, PND. Denies any prolonged palpitation irregular heartbeat. No bleeding issues or neurologic events. [facility] Medical History Cardiac pacemaker in situ Diastolic CHF with preserved left ventricular function, NYHA class 2 CAD (coronary artery disease) Hyperlipidemia Coronary artery disease Uncontrolled hypertension Paroxysmal atrial fibrillation Acute coronary syndrome CTS (carpal tunnel syndrome) HTN (hypertension) Vertigo Surgical History History of cardiac cath H/O umbilical hernia repair Hx of cholecystectomy Family History Brother CAD (coronary artery disease) Social History Household Members: Spouse Housing: House Do you presently have visiting nurse or other home services: No Alcohol intake: never Patient Tobacco Use Status: Former Tobacco user Tobacco use type: Cigarette Cigarette Packs Per Day: 1 Cigarettes Per Day: 20.0 Years Smoked: 10 e-Cigarette/Vaping Use: Never Used Second Hand Smoke Exposure: No Substance Use Type: Caffiene Advance Directives Date on File: 04/02/22 service: Yes Current occupational status: retired Review of Systems Const Denies chills, Denies fatigue, Denies fever(s), Denies frequent falls, Denies weakness, Denies weight gain and Denies weight loss ENT Denies dizziness Card Denies chest pain, Denies leg edema, Denies lightheadedness, Denies palpitations, Denies dyspnea and Denies dyspnea on exertion Resp Denies cough, Denies dyspnea and Denies dyspnea on exertion GI Denies hematochezia Musc Denies abnormal gait, Denies muscle weakness, Denies numbness, Denies radiating pain into limb and Denies tingling Neuro Denies abnormal gait, Denies dizziness, Denies frequent falls, Denies numbness, Denies tingling and Denies weakness Endo Denies fatigue and Denies palpitations Physical Exam Vital Signs: Last Vital Signs Pulse 60 12/29/23 09:09 BP 130/60 12/29/23 09:09 BMI result Body Mass Index 33.7 Repeat blood pressure is 132/60 Const General: cooperative, healthy appearing, no acute distress, alert and awake Orientation/consciousness: patient oriented x3 Neck Neck: Yes normal visual inspection and Yes no JVD Chest Chest palpation & inspection: other (Pacer site is benign) Resp Effort & Inspection: normal respiratory effort, able to speak in complete sentences and not labored Auscultation: clear to auscultation bilaterally, no crackles, no rales, no rhonchi and no wheezes Cardio Rate: regular rate Rhythm: regular rhythm Heart sounds: S1 normal heart sound present and S2 normal heart sound present Peripheral pulses: Peripheral pulses 2+ throughout GI Inspection: Yes normal to inspection Neuro General: patient oriented x3 Extrem Other: Right radial catheterization site well healed with easily palpable radial pulse and normal right hand assessment General: Yes normal to inspection and No edema Office Procedures Cardiac Device Check Cardiac Device Check Details: Dual-chamber [employer] Teddy pacemaker in place. Programmed in DDDR at 60 beats per minute. Atrial pacing 97% time. Few episodes of atrial fibrillation noted short lasting. Atrial ventricular sensing is adequate. Atrial ventricular capture thresholds are stable. Lead impedance is stable. Battery life is at 8 and half years [id number] Cardiac Device Check, pacemaker dual lead Procedure code (CPT) selection complete EKG Details: EKG shows atrially paced, ventricularly sensed rhythm with intraventricular conduction delay [id number], Complete Assessment & Plan Assessment & Plan (1) Paroxysmal atrial fibrillation: Code(s): I48.0 - Paroxysmal atrial fibrillation Category: Medical Plan: Paroxysmal atrial fibrillation without any overt symptoms. Continue bisoprolol therapy. No indication for antiarrhythmic drug therapy. Advised to call me with worsening symptoms. Continue full oral anticoagulation, currently on Eliquis 5 mg b.i.d.. Semi annual renal function test is recommended. (2) CAD (coronary artery disease): Code(s): I25.10 - Atherosclerotic heart disease of [place] coronary artery without angina pectoris Category: Medical Plan: CAD with distal circumflex lesion without any symptoms of angina. He does have some exertional shortness of breath or heavy workup. Otherwise no symptoms. Advised to call me with worsening symptoms. Continue aggressive risk factor modification. Currently on high-intensity statin therapy with well optimized LDL at 34 mg/dL. Blood pressure is currently well optimized. Advised to maintain activity level as tolerated. (3) Cardiac pacemaker in situ: Comment: [employer] Teddy dual-chamber pacemaker implanted March 2022 Code(s): Z95.0 - Presence of cardiac pacemaker Category: Medical Plan: Cardiac pacemaker in-situ, working well. Reprogrammed for adequate functioning. Follow remotely every 3 months. Follow up in the clinic in 6 months time. Will follow up in the clinic in 6 months time, sooner p.r.n.. Thank you for allowing me to partake in his care Coding Level of Care Code Est Pt Level 4 (11348) Complex EM visit Add On G2211 Diagnoses Paroxysmal atrial fibrillation I48.0 CAD (coronary artery disease) I25.10 Cardiac pacemaker in situ Z95.0 CPT Codes Cardiac Device Check - Cardiac Device 2: [id number] Cardiac Device Check, pacemaker dual lead ([id number]) EKG - CPT: 06651-Qwryjwyzgchksowye, Complete ([id number])
== END 2023-12-29 09:27 | disposition home or self-care (01) ==
PROVIDERS: PCP Internal Medicine; Visit Provider Internal Medicine Cardiovascular Disease
DX: I48.0 Paroxysmal atrial fibrillation (principal); I25.10 Atherosclerotic heart disease of native coronary artery without angina pectoris; Z95.0 Presence of cardiac pacemaker
CPT/HCPCS: 93010; 93280; 99214; G2211

== ENCOUNTER → 2023-12-29 08:44 | Outpatient (BNVA) | payer MEDICARE, SELFPAY | PROVIDERS: PCP Internal Medicine; Visit Provider Internal Medicine Cardiovascular Disease | DX: I48.0 Paroxysmal atrial fibrillation (principal); I25.10 Atherosclerotic heart disease of native coronary artery without angina pectoris; Z45.018 Encounter for adjustment and management of other part of cardiac pacemaker | CPT/HCPCS: 93005; 93280; 99212 ==

== ENCOUNTER → 2024-01-28 23:59 | Outpatient (BNV) | payer MEDICARE, SELFPAY ==
--- NOTE | 2024-02-11 16:19 | MHC.OFFVIS ---
Intake Visit Reasons: Remote Device Check- [facility] Teddy Allergies No Known Allergies Allergy (Mild, Verified 04/02/22 11:05) N/A [facility] Medical History Cardiac pacemaker in situ Diastolic CHF with preserved left ventricular function, NYHA class 2 CAD (coronary artery disease) Hyperlipidemia Coronary artery disease Uncontrolled hypertension Paroxysmal atrial fibrillation Acute coronary syndrome CTS (carpal tunnel syndrome) HTN (hypertension) Vertigo Surgical History History of cardiac cath H/O umbilical hernia repair Hx of cholecystectomy Family History Brother CAD (coronary artery disease) Social History Household Members: Spouse Housing: House Do you presently have visiting nurse or other home services: No Alcohol intake: never Patient Tobacco Use Status: Former Tobacco user Tobacco use type: Cigarette Cigarette Packs Per Day: 1 Cigarettes Per Day: 20.0 Years Smoked: 10 e-Cigarette/Vaping Use: Never Used Second Hand Smoke Exposure: No Substance Use Type: Caffiene Advance Directives Date on File: 04/02/22 service: Yes Current occupational status: retired Office Procedures Cardiac Device Check Cardiac Device Check Details: Remote pacemaker report generated 01/28/2024. Pacemaker function is adequate [id number] Cardiac Device Interrogation, pacemaker Procedure code (CPT) selection complete Assessment & Plan Assessment & Plan (1) Cardiac pacemaker in situ: Comment: [employer] Teddy dual-chamber pacemaker implanted March 2022 Code(s): Z95.0 - Presence of cardiac pacemaker Category: Medical Plan: See above Coding Level of Care Code Procedure Only Diagnoses Cardiac pacemaker in situ Z95.0 CPT Codes Cardiac Device Check - Cardiac Device 12: [id number] Cardiac Device Interrogation, pacemaker ([id number])
== END ==
PROVIDERS: PCP Internal Medicine; Visit Provider Internal Medicine Cardiovascular Disease
DX: Z45.018 Encounter for adjustment and management of other part of cardiac pacemaker (principal)
CPT/HCPCS: 93294

== ENCOUNTER → 2024-04-28 23:59 | Outpatient (BNV) | payer MEDICARE, SELFPAY ==
--- NOTE | 2024-05-03 12:26 | MHC.OFFVIS ---
Intake Visit Reasons: Remote Device Check- [facility] Allergies No Known Allergies Allergy (Mild, Verified 05/01/24 12:08) N/A [facility] Medical History Cardiac pacemaker in situ Diastolic CHF with preserved left ventricular function, NYHA class 2 CAD (coronary artery disease) Hyperlipidemia Coronary artery disease Uncontrolled hypertension Paroxysmal atrial fibrillation Acute coronary syndrome CTS (carpal tunnel syndrome) HTN (hypertension) Vertigo Surgical History History of cardiac cath H/O umbilical hernia repair Hx of cholecystectomy Family History Brother CAD (coronary artery disease) Social History Household Members: Spouse Housing: House Do you presently have visiting nurse or other home services: No Alcohol intake: never Patient Tobacco Use Status: Former Tobacco user Tobacco use type: Cigarette Cigarette Packs Per Day: 1 Cigarettes Per Day: 20.0 Years Smoked: 10 e-Cigarette/Vaping Use: Never Used Second Hand Smoke Exposure: No Substance Use Type: Caffiene Advance Directives: Yes Advance Directives Information Provided: Yes Advance Directives on File: No Advance Directives Date on File: 04/02/22 service: Yes Current occupational status: retired Office Procedures Cardiac Device Check Cardiac Device Check Details: Remote pacemaker report generated 04/28/2024. Pacemaker function is adequate. Intermittent episodes of atrial fibrillation noted at 1.5% burden [id number] Cardiac Device Interrogation, pacemaker Procedure code (CPT) selection complete Assessment & Plan Assessment & Plan (1) Cardiac pacemaker in situ: Comment: [employer] Teddy dual-chamber pacemaker implanted March 2022 Code(s): Z95.0 - Presence of cardiac pacemaker Category: Medical Plan: See above Coding Level of Care Code Procedure Only Diagnoses Cardiac pacemaker in situ Z95.0 CPT Codes Cardiac Device Check - Cardiac Device 12: [id number] Cardiac Device Interrogation, pacemaker ([id number])
== END ==
PROVIDERS: PCP Internal Medicine; Visit Provider Internal Medicine Cardiovascular Disease
DX: I48.91 Unspecified atrial fibrillation (principal); Z95.0 Presence of cardiac pacemaker
CPT/HCPCS: 93294

== ENCOUNTER 2024-05-01 12:01 | Emergency (ER) | payer MEDICARE, SELFPAY ==
--- NOTE | ~2024-05-01 | CT_ITS ---
CLINICAL HISTORY: fall with head strike CT cervical spine without contrast. COMPARISON: None FINDINGS: Reversal of normal cervical lordosis. Chronic compression deformity of the inferior endplate of C4. No acute vertebral body injury identified. Skull base and intracranial structures appear normal. The visualized paravertebral soft tissues appear unremarkable. C2-C3: Facet joint arthrosis. No significant neural foraminal narrowing. C3-C4: Uncovertebral joint hypertrophy. Facet joint arthrosis. Severe left neural foraminal narrowing. C4-C5: Anterior marginal osteophytes. Loss of disc space height. Uncovertebral joint hypertrophy. Moderate bilateral neural foraminal narrowing. C5-C6: Anterior marginal osteophytes. Loss of disc space height. Uncovertebral joint hypertrophy. Moderate right neural foraminal narrowing. C6-C7: Anterior marginal osteophytes. Loss of disc space height. Uncovertebral joint hypertrophy. Mild bilateral neural foraminal narrowing. IMPRESSION: 1. No evidence of acute injury to the cervical spine. 2. Reversal of the normal cervical lordosis, likely chronic. 3. Chronic compression deformity of the inferior endplate of C4. This does not appear acute. 4. Advanced mid to lower cervical spondylosis. This document has been electronically signed by: Bunny Bowman MD on 05/01/2024 13:51:14
--- NOTE | ~2024-05-01 | CT_ITS ---
CLINICAL HISTORY: fall on [employer] CT head without contrast. COMPARISON: None FINDINGS: The visualized paranasal sinuses are clear. The mastoid air cells are clear. No calvarial fracture. Atherosclerotic intracranial vasculature. No evidence for mass or mass effect. Small punctate calcification along the lateral right frontal lobe suggestive of sequela of prior trauma or infection. No intracranial hemorrhage or abnormal extra-axial fluid collection. The ventricles are proportional with the degree of mild global cerebral volume loss without evidence of hydrocephalus. Basilar cisterns are patent. There are periventricular areas of low attenuation compatible with mild white matter small vessel disease. Posterior fossa appears unremarkable. IMPRESSION: 1. No acute intracranial findings. This document has been electronically signed by: Bunny Bowman MD on 05/01/2024 13:47:48
[2024-05-01 12:02] VITALS: BP 117/57; PULSE 62; RESP 16; TEMP 35.8; O2SAT 97; BMI 33.1
--- NOTE | 2024-05-01 12:12 | ED_ITS ---
HPI - Fall General Chief Complaint: Fall Stated Complaint: head inj s/p fall, on Eliquis Time Seen by Provider: 05/01/24 12:14 Related Data Home Medications ?Medication ?Instructions ?Recorded ?Confirmed glucosamine-chondroitin 250 mg-200 1 tab PO ONCE 05/22/21 12/29/23 mg tablet (Osteo Bi-Flex) lisinopril 40 mg tablet 40 mg PO DAILY 04/02/22 12/29/23 Previous Rx's ?Medication ?Instructions ?Recorded rosuvastatin 40 mg tablet (Crestor) 40 mg PO DAILY #90 tabs 09/12/21 amlodipine 5 mg tablet 5 mg PO DAILY #90 tabs 04/29/23 bisoprolol 10 1 tab PO DAILY #90 tabs 04/29/23 mg-hydrochlorothiazide 6.25 mg tablet apixaban 5 mg tablet (Eliquis) 5 mg PO BID #180 tabs 06/02/23 Allergies Allergy/AdvReac Type Severity Reaction Status Date / Time No Known Allergies Allergy Mild N/A Verified 05/01/24 12:08 [facility] Past Medical History Medical History Cardiac pacemaker in situ Diastolic CHF with preserved left ventricular function, NYHA class 2 CAD (coronary artery disease) Hyperlipidemia Coronary artery disease Uncontrolled hypertension Paroxysmal atrial fibrillation Acute coronary syndrome CTS (carpal tunnel syndrome) HTN (hypertension) Vertigo Surgical History History of cardiac cath H/O umbilical hernia repair Hx of cholecystectomy Family History Family History Brother CAD (coronary artery disease) Social History Social History Household Members: Spouse Housing: House Do you presently have visiting nurse or other home services: No Alcohol intake: never Patient Tobacco Use Status: Former Tobacco user Tobacco use type: Cigarette Cigarette Packs Per Day: 1 Cigarettes Per Day: 20.0 Years Smoked: 10 e-Cigarette/Vaping Use: Never Used Second Hand Smoke Exposure: No Substance Use Type: Caffiene Advance Directives: Yes Advance Directives Information Provided: Yes Advance Directives on File: No Advance Directives Date on File: 04/02/22 service: Yes Current occupational status: retired Physical Exam Vital Signs: Vital Signs: Last Vital Signs Temp 98.2 F 05/01/24 14:41 Pulse 62 05/01/24 14:41 Resp 18 05/01/24 14:41 BP 142/66 H 05/01/24 14:41 Pulse Ox 95 05/01/24 14:41 O2 Del Method Room Air 05/01/24 14:41 BMI result Body Mass Index 33.1 Course Course Course Narrative: This is a Rapid Medical Examination (RME) performed by Brandyn Caro PA-C in triage. Full HPI, ROS, assessment and treatment plan per primary provider in the Main ED. 78 yo male with history of afib on eliquis here with fall down 8-10 stairs at 11am. fell head first while carrying a recliner. no LOC. abrasions on forehead and top of head. mild headache. neurologically intact. Plan: STAT CT head and c-spine, additional workup per primary provider Reevaluation(s) Reevaluation #1: head ct and cspine negative will d/c home,pt and family warned about delay bleeding Time: 14:21 Reevaluation #2: see dr. rodriguez's note for full assessment and plan Medical Decision Making Medical Decision Making MDM Narrative: patient presented with a head injury on Eliquis Differential Diagnosis Differential Diagnoses: The differential diagnosis associated with the presentation includes subdural hematoma/epidural hematoma cervical spine Admission/Observation Consideration of admission/observation: Escalation of care including admission/observation considered Independent Interpretation I performed an independent interpretation of an: CT Scan Radiology Impression Discussion of test interpretation with radiology: I have reviewed the radiologist's reading. Independent Historian Clinical information obtained from an independent historian. History obtained from or confirmed by: Spouse Discharge Plan Discharge Clinical Impression: Head injury, Abrasion of forehead Patient Disposition: Home, Self-Care Instructions: Head Injury (ED), Abrasion (ED) Additional Instructions: as we discussed return to emergency room if you have increasing a headache nausea vomiting any concern. Prescriptions: No Action amlodipine 5 mg tablet 5 mg PO DAILY Qty: 90 3RF bisoprolol-hydrochlorothiazide 10-6.25 mg tablet 1 tab PO DAILY Qty: 90 3RF Eliquis 5 mg tablet 5 mg PO BID Qty: 180 3RF lisinopril 40 mg tablet 40 mg PO DAILY glucosamine-chondroitin [Osteo Bi-Flex] 250-200 mg tablet 1 tab PO ONCE Rx Instructions: give after food/meal rosuvastatin [Crestor] 40 mg tablet 40 mg PO DAILY Qty: 90 2RF Referrals: Faraz Angeles MD [Primary Care Provider] - 2 days Interventions: ED Discharge Assessment Last Done: 05/01/24 14:41 Discharge Date/Time: 05/01/24 14:44 Print Language: Maori
--- NOTE | 2024-05-01 12:41 | ED.FALL ---
HPI - Fall General Chief Complaint: Fall Stated Complaint: head inj s/p fall, on Eliquis Time Seen by Provider: 05/01/24 12:14 Source: patient Mode of arrival: ambulatory Limitations: no limitations History of Present Illness HPI Narrative: this is a 78 years old the patient presented to emergency department complaining of head injury, he said that he fell it is said he was going down the basement fell about 8-10 stairs. Sustain head injury. Denies any LOC denies any vomiting patient is anticoagulated with apixaban complaint: fall Onset (ago): hour(s) (2) Fall from: down stairs (#) Fall witnessed: no Place fall occurred: home Loss of consciousness: none Prolonged down time: no Severity: moderate Quality: dull Related Data Home Medications ?Medication ?Instructions ?Recorded ?Confirmed glucosamine-chondroitin 250 mg-200 1 tab PO ONCE 05/22/21 12/29/23 mg tablet (Osteo Bi-Flex) lisinopril 40 mg tablet 40 mg PO DAILY 04/02/22 12/29/23 Previous Rx's ?Medication ?Instructions ?Recorded rosuvastatin 40 mg tablet (Crestor) 40 mg PO DAILY #90 tabs 09/12/21 amlodipine 5 mg tablet 5 mg PO DAILY #90 tabs 04/29/23 bisoprolol 10 1 tab PO DAILY #90 tabs 04/29/23 mg-hydrochlorothiazide 6.25 mg tablet apixaban 5 mg tablet (Eliquis) 5 mg PO BID #180 tabs 06/02/23 Allergies Allergy/AdvReac Type Severity Reaction Status Date / Time No Known Allergies Allergy Mild N/A Verified 05/01/24 12:08 Review of Systems Constitutional: Constitutional: Reports no additional constitutional complaints Eyes: Eyes: Reports no additional eye complaints Musculoskeletal: Musculoskeletal: Reports no additional musculoskeletal complaints [facility] Past Medical History [facility] Narrative: patient is anticoagulated with a apixaban Medical History Cardiac pacemaker in situ Diastolic CHF with preserved left ventricular function, NYHA class 2 CAD (coronary artery disease) Hyperlipidemia Coronary artery disease Uncontrolled hypertension Paroxysmal atrial fibrillation Acute coronary syndrome CTS (carpal tunnel syndrome) HTN (hypertension) Vertigo Surgical History History of cardiac cath H/O umbilical hernia repair Hx of cholecystectomy Family History Family History Brother CAD (coronary artery disease) Social History Social History Household Members: Spouse Housing: House Do you presently have visiting nurse or other home services: No Alcohol intake: never Patient Tobacco Use Status: Former Tobacco user Tobacco use type: Cigarette Cigarette Packs Per Day: 1 Cigarettes Per Day: 20.0 Years Smoked: 10 e-Cigarette/Vaping Use: Never Used Second Hand Smoke Exposure: No Substance Use Type: Caffiene Advance Directives: Yes Advance Directives Information Provided: Yes Advance Directives on File: No Advance Directives Date on File: 04/02/22 service: Yes Current occupational status: retired Physical Exam Vital Signs: Vital Signs: Last Vital Signs Temp 98.2 F 05/01/24 14:41 Pulse 62 05/01/24 14:41 Resp 18 05/01/24 14:41 BP 142/66 H 05/01/24 14:41 Pulse Ox 95 05/01/24 14:41 O2 Del Method Room Air 05/01/24 14:41 BMI result Body Mass Index 33.1 not acute distress Const: General: comfortable and no acute distress Nutritional Appearance: average body habitus Orientation/consciousness: oriented to time HEENT: Other: abrasion of forehead Ears: hearing grossly normal bilaterally General nose exam: Normal external nose present Face and sinus: Yes normal facial exam Mouth: Normal oral and palatal mucosa present Neck: Neck: Yes normal visual inspection and Yes full ROM Chest: Chest palpation & inspection: normal inspection of the chest Resp: Effort & Inspection: normal respiratory effort Auscultation: clear to auscultation bilaterally Cardio: Jugular venous distension: no JVD Rate: regular rate Rhythm: regular rhythm GI: Inspection: Yes normal to inspection Skin: General skin exam: no rashes or lesions noted Lesions: no lesions Rashes: no rashes Neuro: General: oriented to time Cranial nerves: Yes CN's II-XII intact bilaterally Medical Decision Making Medical Decision Making MDM Narrative: patient presented with a head injury fell he is on Eliquis we will get a head CT Differential Diagnosis Differential Diagnoses: The differential diagnosis associated with the presentation includes subdural hematoma/ epidural hematoma /head bleed Discharge Plan Discharge Clinical Impression: Head injury Qualifiers: Encounter type: initial encounter Qualified Code(s): S09.90XA - Unspecified injury of head, initial encounter Abrasion of forehead Qualifiers: Encounter type: initial encounter Qualified Code(s): S00.81XA - Abrasion of other part of head, initial encounter Patient Disposition: Home, Self-Care Instructions: Head Injury (ED), Abrasion (ED) Additional Instructions: as we discussed return to emergency room if you have increasing a headache nausea vomiting any concern. Prescriptions: No Action amlodipine 5 mg tablet 5 mg PO DAILY Qty: 90 3RF bisoprolol-hydrochlorothiazide 10-6.25 mg tablet 1 tab PO DAILY Qty: 90 3RF Eliquis 5 mg tablet 5 mg PO BID Qty: 180 3RF lisinopril 40 mg tablet 40 mg PO DAILY glucosamine-chondroitin [Osteo Bi-Flex] 250-200 mg tablet 1 tab PO ONCE Rx Instructions: give after food/meal rosuvastatin [Crestor] 40 mg tablet 40 mg PO DAILY Qty: 90 2RF Referrals: Faraz Angeles MD [Primary Care Provider] - 2 days Interventions: ED Discharge Assessment Last Done: 05/01/24 14:41 Discharge Date/Time: 05/01/24 14:44 Print Language: Panamanian
[2024-05-01 14:28] VITALS: BP 142/66; PULSE 62; RESP 18; TEMP 36.8; O2SAT 95
[2024-05-01 14:41] VITALS: BP 142/66; PULSE 62; RESP 18; TEMP 36.8; O2SAT 95
== END 2024-05-01 14:44 | disposition home or self-care (01) ==
PROVIDERS: Emergency Provider Emergency Medicine; PCP Internal Medicine
DX: S09.90XA Unspecified injury of head, initial encounter (principal); S00.81XA Abrasion of other part of head, initial encounter; W10.8XXA Fall (on) (from) other stairs and steps, initial encounter; I11.0 Hypertensive heart disease with heart failure; I50.30 Unspecified diastolic (congestive) heart failure; E78.5 Hyperlipidemia, unspecified; I48.0 Paroxysmal atrial fibrillation; Z95.0 Presence of cardiac pacemaker; Z87.891 Personal history of nicotine dependence; Z79.01 Long term (current) use of anticoagulants; Z79.899 Other long term (current) drug therapy; Z79.02 Long term (current) use of antithrombotics/antiplatelets; Y93.9 Activity, unspecified; Y92.018 Other place in single-family (private) house as the place of occurrence of the external cause; Y99.9 Unspecified external cause status
CPT/HCPCS: 70450; 72125; 99283; 99284

== ENCOUNTER → 2024-05-01 12:11 | Outpatient (BNV) | payer MEDICARE, SELFPAY | PROVIDERS: Emergency Provider Emergency Medicine; PCP Internal Medicine; Visit Provider Radiology Diagnostic Radiology | DX: S09.90XA Unspecified injury of head, initial encounter (principal); S00.81XA Abrasion of other part of head, initial encounter; W10.8XXA Fall (on) (from) other stairs and steps, initial encounter | CPT/HCPCS: 70450; 72125 ==

== ENCOUNTER 2024-07-18 12:55 | Outpatient (AMB) | payer MEDICARE, SELFPAY ==
--- NOTE | 2024-07-18 13:34 | A.OFFVIS_ITS ---
Vital Signs 07/18/24 13:35 Height 5 ft 6 in Weight 213 lb 13.574 oz BMI 34.5 BP 122/68 Blood Pressure Location Lt brachial Position Sitting Pulse 62 Pulse Source Pulse Oximeter Intake Visit Reasons: 6 mth w/ device ck Allergies No Known Allergies Allergy (Mild, Verified 05/01/24 12:08) N/A Medication List - Last Reconciled 07/18/24 by Yue Nolasco, ABBEY-C amlodipine 5 mg PO DAILY apixaban (Eliquis) 5 mg PO BID bisoprolol-hydrochlorothiazide 10-6.25 mg 1 tab PO DAILY glucosamine-chondroitin 250-200 mg (Osteo Bi-Flex) 1 tab PO ONCE lisinopril 40 mg PO DAILY rosuvastatin (Crestor) 40 mg PO DAILY HPI HPI 6 mth w/ device ck: Details: Filippo is a 78-year-old male past medical history of hypertension, sick sinus syndrome, dual-chamber pacemaker placement, paroxysmal atrial fibrillation, CAD who presents for follow-up. Today he reports he has been doing well since his last visit in December. He tells me that he walks 4 miles per day and does routine exercises in the afternoon including lifting weights. He is able to climb stairs without difficulties. At times he will notice shortness of breath following his activities but this does not occur consistently. No PND, orthopnea or edema. No chest discomfort at rest or with activity. No heart palpitations, lightheadedness, presyncope, syncope. Compliant with meds. No bleeding issues reported. [facility] Medical History (Updated 07/18/24 @ 16:36 by JV SalamancaC) HTN (hypertension) Cardiac pacemaker in situ Diastolic CHF with preserved left ventricular function, NYHA class 2 CAD (coronary artery disease) Hyperlipidemia Coronary artery disease Uncontrolled hypertension Paroxysmal atrial fibrillation Acute coronary syndrome CTS (carpal tunnel syndrome) Vertigo Surgical History (Updated 07/18/24 @ 16:37 by JV SalamancaC) History of cardiac cath H/O umbilical hernia repair Hx of cholecystectomy Family History Brother CAD (coronary artery disease) Social History Household Members: Spouse Housing: House Do you presently have visiting nurse or other home services: No Alcohol intake: never Patient Tobacco Use Status: Former Tobacco user Tobacco use type: Cigarette Cigarette Packs Per Day: 1 Cigarettes Per Day: 20.0 Years Smoked: 10 e-Cigarette/Vaping Use: Never Used Second Hand Smoke Exposure: No Substance Use Type: Caffiene Advance Directives Date on File: 04/02/22 service: Yes Current occupational status: retired Review of Systems Const All systems reviewed & are unremarkable except as noted in HPI and below Denies weakness ENT Denies dizziness Card Denies chest pain, Denies chest pain with activity, Denies syncope, Denies rapid heart rate, Denies pedal edema, Denies edema, Denies leg edema, Denies lightheadedness, Denies palpitations, Denies dyspnea, Reports dyspnea on ex ertion (at times) and Denies orthopnea Resp Denies cough, Denies dyspnea and Reports dyspnea on exertion (at times) GI Denies hematochezia and Denies change in stool character Musc Denies abnormal gait, Denies muscle cramps, Denies muscle weakness, Denies numbness, Denies radiating pain into limb and Denies tingling Neuro Denies abnormal gait, Denies dizziness, Denies syncope, Denies numbness, Denies tingling and Denies weakness Endo Denies palpitations Physical Exam Vital Signs: Last Vital Signs Pulse 62 07/18/24 13:35 BP 122/68 07/18/24 13:35 BMI result Body Mass Index 34.5 Const General: cooperative, healthy appearing, comfortable and no acute distress Orientation/consciousness: patient oriented x3 Neck Neck: Yes normal visual inspection and Yes no JVD Chest Other: pacer site left upper chest benign Resp Effort & Inspection: normal respiratory effort Auscultation: clear to auscultation bilaterally, no rales, no rhonchi and no wheezes Cardio Rate: regular rate Rhythm: regular rhythm Heart sounds: S1 normal heart sound present, S2 normal heart sound present, no gallops, no murmurs and no rubs Neuro General: patient oriented x3 Extrem General: Yes normal to inspection, No no pedal edema and No calf tenderness Psych Appearance: grossly normal Mental Status: mental status grossly normal Speech and movement: Normal speech and movement present Office Procedures Cardiac Device Check Cardiac Device Check Details: [employer] Teddy dual-chamber pacemaker interrogation today, battery 8-8.3 years, DDDR mode, low rate 60, frequent mode switches, 80/AF burden 3.6%, a paced 98%, RA threshold 0.5 milliseconds at 0.6 milliseconds, RV 1 volt at 0.5 milliseconds, no changes. [id number] Cardiac Device Check, pacemaker dual lead Procedure code (CPT) selection complete Assessment & Plan Assessment & Plan (1) Paroxysmal atrial fibrillation: Code(s): I48.0 - Paroxysmal atrial fibrillation Category: Medical Plan: History of paroxysmal atrial fibrillation with asymptomatic episodes as noted on device interrogation today. He has no heart palpitations but does report some intermittent shortness of breath following activities which possibly could be from PAF however not confirmed. Recent burden 3.6%. He is on bisoprolol 10 mg daily for rate control. He is on Eliquis 5 mg b.i.d. for anticoagulation. Labs 12/08/2023 showed creatinine 1.09, hematocrit 39.7. Recommend by annual BMP and CBC. Will continue to follow AFib burden remotely. (2) CAD (coronary artery disease): Code(s): I25.10 - Atherosclerotic heart disease of [place] coronary artery without angina pectoris Category: Medical Plan: History of CAD with branch vessel and distal circumflex stenosis without symptoms of angina. He reports good activity tolerance. He is not on aspirin as he is on Eliquis. He is on high-dose rosuvastatin with ideal LDL goal less than 70. He is on amlodipine and bisoprolol. Blood pressure well controlled. Signs and symptoms of angina reviewed with him. (3) Sick sinus syndrome: Code(s): I49.5 - Sick sinus syndrome Category: Medical (4) Cardiac pacemaker in situ: Comment: [employer] Teddy dual-chamber pacemaker implanted March 2022 Code(s): Z95.0 - Presence of cardiac pacemaker Category: Medical Plan: Interrogation today shows device is functioning normally. Battery 8 years. Remote monitoring in use. Next office interrogation due in 6 months. (5) HTN (hypertension): Code(s): I10 - Essential (primary) hypertension Category: Medical Plan: Blood pressure goal less than 130/80. Well controlled at this time. Continue a mlodipine, bisoprolol, hydrochlorothiazide, lisinopril. (6) History of cardiac cath: Comment: 05/07/2021 showing mild LAD stenosis, 30-40% ramus stenosis, mid circumflex 50% stenosis, distal circumflex 85% stenosis managed medically Code(s): Z98.890 - Other specified postprocedural states Category: Surgical Plan During the visit, I discussed with the patient the possible relationship between his documented atrial fibrillation episodes and the sporadic shortness of breath symptoms. I assured the patient that his current medication regimen is adequate for controlling symptoms without adjustments necessary at this time. Both risks and benefits of his current medications, including the stability they provide against episodes of atrial fibrillation and potential bleeding risks associated with blood thinners, were reviewed. We discussed that no immediate interventions are needed unless symptoms of shortness of breath become more consistent or severe, at which point additional testing such as a stress test may be considered. The importance of maintaining physical activity to monitor underlying symptoms was emphasized. Alternative problems such as the potential ear infection were noted, encouraging follow-up with his primary care provider. The patient was informed about potential episodes documented on the pacemaker report and advised on monitoring his symptoms and reporting any changes promptly. Follow-up appointments for monitoring were scheduled in six months, with the option for an earlier consultation if necessary. Patient Instructions: - Continue taking prescribed medications: amlodipine, bisoprolol, hydrochlorothiazide, lisinopril, and Eliquis. - Stay active with regular exercise. - Monitor for any new or worsening symptoms of shortness of breath. - Contact primary healthcare provider for ear infection concerns. - Attend pacemaker follow-ups every six months. - Report any new symptoms promptly. Patient was informed and verbally consented to the use of an ambient scribe for clinic note documentation during this visit. Visit time spent on chart review, interview, assessment, orders, documentation. Coding Level of Care Code Est Pt Level 4 (76660) Complex EM visit Add On G2211 Diagnoses Paroxysmal atrial fibrillation I48.0 CAD (coronary artery disease) I25.10 Sick sinus syndrome I49.5 Cardiac pacemaker in situ Z95.0 HTN (hypertension) I10 History of cardiac cath Z98.890 CPT Codes Cardiac Device Check - Cardiac Device 2: [id number] Cardiac Device Check, pacemaker dual lead ([id number]) Time Spent (min) 28
[2024-07-18 13:35] VITALS: BP 122/68; PULSE 62; BMI 34.5
== END 2024-07-18 14:43 | disposition home or self-care (01) ==
LOC: HO.HCS 12:56
PROVIDERS: PCP Internal Medicine; Visit Provider Nurse Practitioner Family
DX: I48.0 Paroxysmal atrial fibrillation (principal); I25.10 Atherosclerotic heart disease of native coronary artery without angina pectoris; I49.5 Sick sinus syndrome; Z95.0 Presence of cardiac pacemaker; I10 Essential (primary) hypertension; Z98.890 Other specified postprocedural states
CPT/HCPCS: 93280; 99214; G2211

== ENCOUNTER → 2024-07-18 12:55 | Outpatient (BNVA) | payer MEDICARE, SELFPAY | PROVIDERS: PCP Internal Medicine; Visit Provider Nurse Practitioner Family | DX: I10 Essential (primary) hypertension (principal); I49.5 Sick sinus syndrome; I48.0 Paroxysmal atrial fibrillation; I25.10 Atherosclerotic heart disease of native coronary artery without angina pectoris; Z95.0 Presence of cardiac pacemaker; Z87.891 Personal history of nicotine dependence; Z98.890 Other specified postprocedural states | CPT/HCPCS: 93280; 99212 ==

== ENCOUNTER → 2024-07-28 23:59 | Outpatient (BNV) | payer MEDICARE, SELFPAY ==
--- NOTE | 2024-07-29 16:07 | MHC.OFFVIS ---
Intake Visit Reasons: Remote device check- [facility] Allergies No Known Allergies Allergy (Mild, Verified 05/01/24 12:08) N/A [facility] Medical History (Updated 07/18/24 @ 16:36 by FRANKI Salamanca) HTN (hypertension) Cardiac pacemaker in situ Diastolic CHF with preserved left ventricular function, NYHA class 2 CAD (coronary artery disease) Hyperlipidemia Coronary artery disease Uncontrolled hypertension Paroxysmal atrial fibrillation Acute coronary syndrome CTS (carpal tunnel syndrome) Vertigo Surgical History (Updated 07/18/24 @ 16:37 by Yue Nolasco NP-C) History of cardiac cath H/O umbilical hernia repair Hx of cholecystectomy Family History Brother CAD (coronary artery disease) Social History Household Members: Spouse Housing: House Do you presently have visiting nurse or other home services: No Alcohol intake: never Patient Tobacco Use Status: Former Tobacco user Tobacco use type: Cigarette Cigarette Packs Per Day: 1 Cigarettes Per Day: 20.0 Years Smoked: 10 e-Cigarette/Vaping Use: Never Used Second Hand Smoke Exposure: No Substance Use Type: Caffiene Advance Directives Date on File: 04/02/22 service: Yes Current occupational status: retired Office Procedures Cardiac Device Check Cardiac Device Check Details: Remote pacemaker report generated 07/28/2024. Pacemaker function is adequate [id number] Cardiac Device Interrogation, pacemaker Procedure code (CPT) selection complete Assessment & Plan Assessment & Plan (1) Cardiac pacemaker in situ: Comment: [employer] Teddy dual-chamber pacemaker implanted March 2022 Code(s): Z95.0 - Presence of cardiac pacemaker Category: Medical Plan: See above Coding Level of Care Code Procedure Only Diagnoses Cardiac pacemaker in situ Z95.0 CPT Codes Cardiac Device Check - Cardiac Device 12: [id number] Cardiac Device Interrogation, pacemaker ([id number])
== END ==
PROVIDERS: PCP Internal Medicine; Visit Provider Internal Medicine Cardiovascular Disease
DX: Z45.018 Encounter for adjustment and management of other part of cardiac pacemaker (principal)
CPT/HCPCS: 93294

== ENCOUNTER → 2024-10-27 23:59 | Outpatient (BNV) | payer MEDICARE, SELFPAY ==
--- NOTE | 2024-11-01 14:54 | MHC.OFFVIS ---
Intake Visit Reasons: Remote device check- [facility] Allergies No Known Allergies Allergy (Mild, Verified 05/01/24 12:08) N/A [facility] Medical History (Updated 07/18/24 @ 16:36 by FRANKI Salamanca) HTN (hypertension) Cardiac pacemaker in situ Diastolic CHF with preserved left ventricular function, NYHA class 2 CAD (coronary artery disease) Hyperlipidemia Coronary artery disease Uncontrolled hypertension Paroxysmal atrial fibrillation Acute coronary syndrome CTS (carpal tunnel syndrome) Vertigo Surgical History (Updated 07/18/24 @ 16:37 by Yue Nolasco NP-C) History of cardiac cath H/O umbilical hernia repair Hx of cholecystectomy Family History Brother CAD (coronary artery disease) Social History Household Members: Spouse Housing: House Do you presently have visiting nurse or other home services: No Alcohol intake: never Patient Tobacco Use Status: Former Tobacco user Tobacco use type: Cigarette Cigarette Packs Per Day: 1 Cigarettes Per Day: 20.0 Years Smoked: 10 e-Cigarette/Vaping Use: Never Used Second Hand Smoke Exposure: No Substance Use Type: Caffiene Advance Directives Date on File: 04/02/22 service: Yes Current occupational status: retired Office Procedures Cardiac Device Check Cardiac Device Check Details: Remote pacemaker report generated 10/27/2024. Pacemaker function is adequate [id number] Cardiac Device Interrogation, pacemaker Procedure code (CPT) selection complete Assessment & Plan Assessment & Plan (1) Cardiac pacemaker in situ: Comment: [employer] Teddy dual-chamber pacemaker implanted March 2022 Code(s): Z95.0 - Presence of cardiac pacemaker Category: Medical Plan: See above Coding Level of Care Code Procedure Only Diagnoses Cardiac pacemaker in situ Z95.0 CPT Codes Cardiac Device Check - Cardiac Device 12: [id number] Cardiac Device Interrogation, pacemaker ([id number])
== END ==
PROVIDERS: PCP Internal Medicine; Visit Provider Internal Medicine Cardiovascular Disease
DX: Z45.018 Encounter for adjustment and management of other part of cardiac pacemaker (principal)
CPT/HCPCS: 93294

== ENCOUNTER 2025-01-30 11:13 | Outpatient (REF) | payer MEDICARE, SELFPAY ==
[2025-01-30 12:27] LABS: Hematocrit 39.4 % (42.0-52.0); Hemoglobin 13.0 g/dl (14.0-18.0); Mean Corpuscular HGB Conc 33.0 g/dl (31.0-36.0); Mean Corpuscular Hemoglobin 28.4 pg (27.0-33.0); Mean Corpuscular Volume 86.2 fL (80.0-98.0); NRBC Abs Auto 0.000 X10*3/uL (0.0-0.012); NRBC Pct Auto 0.0 /100WBC (0.0-0.2); Platelet Count 202 X10*3/uL (160-400); Red Blood Count 4.57 X10*6/uL (4.60-5.80); White Blood Count 6.9 X10*3/uL (4.8-10.8)
[2025-01-30 13:02] LABS: Anion Gap 13 (12-20); Blood Urea Nitrogen 21 mg/dL (9-16); Calcium 9.0 mg/dL (8.4-10.2); Carbon Dioxide 24 mmol/L (22-29); Chloride 108 mmol/L (96-108); Estimated Glomerular Filt Rate > 60; Potassium 4.3 mmol/L (3.3-5.1); Sodium 141 mmol/L (135-145)
== END 2025-01-30 11:14 | disposition home or self-care (01) ==
LOC: HO.LAB 11:13
PROVIDERS: PCP Internal Medicine; Visit Provider Internal Medicine Cardiovascular Disease
DX: I48.0 Paroxysmal atrial fibrillation (principal); I25.10 Atherosclerotic heart disease of native coronary artery without angina pectoris; Z95.0 Presence of cardiac pacemaker; Z79.01 Long term (current) use of anticoagulants; Z79.899 Other long term (current) drug therapy
CPT/HCPCS: 36415; 80048; 85027; 93280; 99212

== ENCOUNTER 2025-01-30 11:13 | Outpatient (AMB) | payer MEDICARE, SELFPAY ==
[2025-01-30 11:29] VITALS: BP 122/68; PULSE 60; BMI 34.5
--- NOTE | 2025-01-30 11:29 | MHC.OFFVIS ---
Vital Signs 01/30/25 11:29 Height 5 ft 6 in Weight 213 lb 13.574 oz BMI 34.5 BP 122/68 Blood Pressure Location Lt brachial Position Sitting Pulse 60 Intake Visit Reasons: 6 mth w/ [address] espinal ck per DC Intake Note: 6 month follow-up with [facility] Espinal feeling good Orthopaedic General Required: No Allergies No Known Allergies Allergy (Mild, Verified 05/01/24 12:08) N/A Medication List - Last Reconciled 01/30/25 by Julian Tong MD amlodipine 5 mg PO DAILY apixaban (Eliquis) 5 mg PO BID bisoprolol-hydrochlorothiazide 10-6.25 mg 1 tab PO DAILY lisinopril 40 mg PO DAILY rosuvastatin (Crestor) 40 mg PO DAILY HPI Comments Details: Filippo comes for follow-up. He has been doing well from cardiac perspective. Denies any significant cardiac symptoms at current time. No exertional chest pain or shortness of breath. No prolonged palpitation irregular heartbeat. Occasional lightheadedness which is not always positional. No syncopal episodes. [facility] Medical History HTN (hypertension) Cardiac pacemaker in situ Diastolic CHF with preserved left ventricular function, NYHA class 2 CAD (coronary artery disease) Hyperlipidemia Coronary artery disease Uncontrolled hypertension Paroxysmal atrial fibrillation Acute coronary syndrome CTS (carpal tunnel syndrome) Vertigo Surgical History History of cardiac cath H/O umbilical hernia repair Hx of cholecystectomy Family History Brother CAD (coronary artery disease) Social History Household Members: Spouse Housing: House Do you presently have visiting nurse or other home services: No Alcohol intake: never Patient Tobacco Use Status: Former Tobacco user Tobacco use type: Cigarette Cigarette Packs Per Day: 1 Cigarettes Per Day: 20.0 Years Smoked: 10 e-Cigarette/Vaping Use: Never Used Second Hand Smoke Exposure: No Substance Use Type: Caffiene Advance Directives Date on File: 04/02/22 service: Yes Current occupational status: retired Review of Systems Const Denies chills, Denies fatigue, Denies fever(s), Denies frequent falls, Denies weakness, Denies weight gain and Denies weight loss ENT Denies dizziness Card Denies chest pain, Denies leg edema, Denies lightheadedness, Denies palpitations, Denies dyspnea, Denies dyspnea on exertion, Denies orthopnea and Denies other (loss of consciousness) Resp Denies cough, Denies dyspnea and Denies dyspnea on exertion GI Denies hematochezia and Denies change in stool character Musc Denies abnormal gait, Denies muscle weakness, Denies numbness, Denies radiating pain into limb and Denies tingling Neuro Denies abnormal gait, Denies dizziness, Denies frequent falls, Denies numbness, Denies tingling and Denies weakness Endo Denies fatigue and Denies palpitations Physical Exam Vital Signs: Last Vital Signs Pulse 60 01/30/25 11:29 BP 122/68 01/30/25 11:29 BMI result Body Mass Index 34.5 Repeat blood pressure is 132/60 Const General: cooperative, healthy appearing, no acute distress, alert and awake Orientation/consciousness: patient oriented x3 Neck Neck: Yes normal visual inspection and Yes no JVD Chest Chest palpation & inspection: other (Pacer site is benign) Resp Effort & Inspection: normal respiratory effort, able to speak in complete sentences and not labored Auscultation: clear to auscultation bilaterally, no crackles, no rales, no rhonchi and no wheezes Cardio Rate: regular rate Rhythm: regular rhythm Heart sounds: S1 normal heart sound present and S2 normal heart sound present Peripheral pulses: Peripheral pulses 2+ throughout GI Inspection: Yes normal to inspection Neuro General: patient oriented x3 Extrem Other: Right radial catheterization site well healed with easily palpable radial pulse and normal right hand assessment General: Yes normal to inspection and No edema Office Procedures Cardiac Device Check Cardiac Device Check Details: Dual-chamber [employer] Teddy pacemaker in place. Programmed in DDDR at 60 beats per minute. Atrial pacing 98% of the time. No episodes of atrial fibrillation noted. Atrial pacing thresholds adequate and reprogrammed to enhance safety. Ventricular pacing thresholds adequate. Atrial ventricular sensing is adequate. Pacing lead impedance is stable. Battery life is at 7.5 years [id number] Cardiac Device Check, pacemaker dual lead Procedure code (CPT) selection complete Assessment & Plan Assessment & Plan (1) Paroxysmal atrial fibrillation: Code(s): I48.0 - Paroxysmal atrial fibrillation Category: Medical Plan: Paroxysmal atrial fibrillation which has remained suppressed and doing well. Continue to pursue rhythm control approach. No indication for antiarrhythmic drug therapy at this point time. Continue risk factor modification with aggressive control blood pressure which is currently well optimized. Continue full oral anticoagulation, currently on apixaban 5 mg b.i.d.. Semi annual renal function test and annual CBC should be checked. Follow-up echocardiogram in 6 months. (2) Cardiac pacemaker in situ: Comment: [employer] Teddy dual-chamber pacemaker implanted March 2022 Code(s): Z95.0 - Presence of cardiac pacemaker Category: Medical Plan: Cardiac pacemaker in-situ for sick sinus syndrome. Pacemaker is working well. Reprogrammed for adequate functioning. Will follow remotely every 3 months. Follow up in the clinic in 6 months time. (3) CAD (coronary artery disease): Code(s): I25.10 - Atherosclerotic heart disease of [place] coronary artery without angina pectoris Category: Medical Plan: CAD with distal coronary disease without any symptoms of angina at current workload. Continue aggressive medical therapy. Currently on apixaban therapy and therefore would avoid aspirin therapy to reduce bleeding risk. Continue aggressive blood pressure control which is currently well optimized on current therapy. Importance of good blood pressure control was discussed. He understands agrees. Continue high-intensity statin therapy with target goal LDL less than 70 mg/dL. Advised to call me with any new symptoms. Will follow up in the clinic in 6 months time, sooner PRN. Thank you for allowing me to partake in his care Orders: Orders Complete Blood Count no Diff Today I48.0 - Paroxysmal atrial fibrillation Basic Metabolic Panel Today I48.0 - Paroxysmal atrial fibrillation CA echo transthoracic complete 6 Months I48.0 - Paroxysmal atrial fibrillation Coding Level of Care Code Est Pt Level 4 (65137) Diagnoses Paroxysmal atrial fibrillation I48.0 Cardiac pacemaker in situ Z95.0 CAD (coronary artery disease) I25.10 CPT Codes Cardiac Device Check - Cardiac Device 2: [id number] Cardiac Device Check, pacemaker dual lead ([id number])
== END 2025-01-30 11:50 | disposition home or self-care (01) ==
LOC: HO.HCS 11:14
PROVIDERS: PCP Internal Medicine; Visit Provider Internal Medicine Cardiovascular Disease
DX: I48.0 Paroxysmal atrial fibrillation (principal); Z95.0 Presence of cardiac pacemaker; I25.10 Atherosclerotic heart disease of native coronary artery without angina pectoris
CPT/HCPCS: 93280; 99214

== ENCOUNTER → 2025-02-10 16:05 | Outpatient (BNV) | payer MEDICARE, SELFPAY | PROVIDERS: PCP Internal Medicine; Visit Provider Internal Medicine Cardiovascular Disease | DX: Z45.018 Encounter for adjustment and management of other part of cardiac pacemaker (principal) | CPT/HCPCS: 93294 ==